=== PATIENT | female | born 1955 | race Caucasian/White ===

== ENCOUNTER 2017-07-29 19:23 | Observation (INO) | payer OTHER, SELFPAY ==
[2017-07-29 20:08] LABS: Absolute Lymphocytes (CBC) 2.9 K/uL (0.7-4.9); Absolute Monocytes 0.5 K/uL (0.1-1.3); Basophils % 0.9 % (0-1.3); Eosinophils % 2.8 % (0-4.4); Hematocrit 43.2 % (36.0-45.0); Lymphocytes % 29.5 % (15.3-44.8); MCH 27.5 pg (27.0-35.0); MCV 82.9 fL (80-100); MPV 8.8 fL (7.6-11.3); Monocytes % 5.5 % (3.3-12.3); RBC Red Blood Cell Count 5.21 M/uL (3.86-4.86)
[2017-07-29 20:16] LABS: Potassium 3.6 mEq/L (3.6-5.0)
[2017-07-29 20:17] LABS: Protime INR 1.01
[2017-07-29] MEDS ORDERED: NITROGLYCERIN 0.4 MG/TAB SL ONE (20:17)
[2017-07-29 20:22] LABS: Albumin 4.2 g/dL (3.2-5.5); Bilirubin Direct 0.1 mg/dL (0-0.2); Bilirubin Total 0.8 mg/dL (0.3-1.2); Magnesium 2.1 mg/dL (1.8-2.5); Protein, Total 7.8 g/dL (6.0-8.3)
[2017-07-29 20:23] LABS: CKMB Creatine Kinase MB 0.8 ng/ml (0.3-4.0)
--- NOTE | 2017-07-29 20:29 | RAD REPORT ---
EXAM DESCRIPTION: CT - Head Brain Wo Cont - 07/29/2017 8:12 pm CLINICAL HISTORY: Progressively worsening headache COMPARISON: September 2016 TECHNIQUE: Axial 5 mm thick images of the head were obtained without IV contrast. All CT scans are performed using dose optimization technique as appropriate and may include automated exposure control or mA/KV adjustment according to patient size. FINDINGS: No intracranial hemorrhage, mass, edema or shift of mid-line structures. No acute infarcti on changes seen. No abnormal extra-axial fluid collections. Ventricles are normal. Physiologic calcif ications are present. Mastoid air cells and visualized portions of the paranasal sinuses are clear. No acute bony findings. Intracranial findings are stable from prior imaging. IMPRESSION: Negative non-contrast CT head examination for acute finding.
--- NOTE | 2017-07-29 20:33 | RAD REPORT ---
EXAM DESCRIPTION: RAD - Chest Single View - 07/29/2017 7:57 pm CLINICAL HISTORY: Chest pain COMPARISON: September 2016 TECHNIQUE: AP portable chest image was obtained 1951 hours . FINDINGS: Lungs are clear. Heart and vasculature are normal. No measurable pleural effusion and no p neumothorax. No gross bony abnormality seen. No acute aortic findings suspected. IMPRESSION: No acute cardiopulmonary process. No significant interval change.
[2017-07-29] MEDS ORDERED: ASPIRIN 81 MG CHEWABLE TABLET ONE (20:40)
[2017-07-29] MEDS ORDERED: MORPHINE 4 MG/ML SYR ONE ×2 (21:08→21:50)
[2017-07-29] MEDS ORDERED: ONDANSETRON 4 MG/2 ML VIAL ONE (21:09)
[2017-07-29] MEDS ORDERED: MORPHINE 4 MG/ML SYR IV PRN (21:11)
[2017-07-29] MEDS ORDERED: ALPRAZOLAM 0.25 MG TABLET PO PRN (21:11)
--- NOTE | 2017-07-29 21:14 | ER ---
Nurse's Notes [facility] Name: Angy Aguilera Age: 62 yrs Sex: Female : 1955 Arrival Date: 07/29/2017 Time: 19:25 Bed 24 Private MD: Diagnosis: Chest pain, unspecified Presentation: 07/29 19:36 Presenting complaint: Patient states: chest pain started 5:45pm tonight while cooking, sr5 progressively getting worse, "dull ache". Reports having LEFT shoulder pain yesterday. PMH= [place] with stents in 2011, HTN, hypercholestrol. AA\\T\\Ox4, equal unlabored resp, skin warm/dry/nc. EKG done in triage. 19:36 Acuity: PATTI 2 sr5 20:41 Transition of care: patient was not received from another setting of care. Onset of tl3 symptoms was July 29, 2017 at 05:00. Care prior to arrival: None. 20:41 Method Of Arrival: Ambulatory tl3 Triage Assessment: 20:00 General: Appears distressed, uncomfortable, well groomed, well developed, well tl3 nourished, Behavior is cooperative, appropriate for age, anxious. Pain: Complains of pain in chest Pain currently is 8 out of 10 on a pain scale. EENT: No signs and/or symptoms were reported regarding the EENT system. Neuro: Level of Consciousness is awake, alert, obeys commands, Oriented to person, place, time, situation, Appropriate for age. Cardiovascular: Heart tones S1 S2 present Capillary refill < 3 seconds in right in left fingers toes. Respiratory: Airway is patent Trachea midline Breath sounds are clear. GI: No signs and/or symptoms were reported involving the gastrointestinal system. : No signs and/or symptoms were reported regarding the genitourinary system. Derm: No signs and/or symptoms reported regarding the dermatologic system. Musculoskeletal: No signs and/or symptoms reported regarding the musculoskeletal system. Historical: - Allergies: 20:43 Sulfa (Sulfonamide Antibiotics); tl3 - Home Meds: 20:43 aspirin 81 mg Oral chew once daily [Active]; Pepcid 20 mg Oral tab once daily [Active]; tl3 - PMHx: 20:43 GERD; Myocardial infarction; Hypertension; Ulcers; tl3 - PSHx: 20:43 Tonsillectomy; Hysterectomy; Cholecystectomy; tl3 - Immunization history:: Adult Immunizations up to date. - Social history:: Smoking status: Patient/guardian denies using tobacco, never smoked. Screenin:00 Abuse screen: Denies threats or abuse. Nutritional screening: No deficits noted. tl3 Tuberculosis screening: No symptoms or risk factors identified. Fall Risk None identified. Assessment: 20:00 General: Appears uncomfortable, well groomed, well developed, well nourished, Behavior tl3 is cooperative, appropriate for age. Pain: Pain does not radiate. Pain began 3 hours ago. Neuro: Level of Consciousness is awake, alert, obeys commands, Oriented to person, place, time, situation, Appropriate for age. Cardiovascular: Heart tones S1 S2 present Capillary refill < 3 seconds in right in left fingers. Respiratory: Airway is patent Trachea midline Respiratory effort is even, Breath sounds are clear bilaterally. GI: No signs and/or symptoms were reported involving the gastrointestinal system. : No signs and/or symptoms were reported regarding the genitourinary system. EENT: No signs and/or symptoms were reported regarding the EENT system. Derm: No signs and/or symptoms reported regarding the dermatologic system. 21:01 Reassessment: No changes from previously documented assessment. Patient and/or family tl3 updated on plan of care and expected duration. Pain level reassessed. Patient is alert, oriented x 3, equal unlabored respirations, skin warm/dry/pink. pts oxygen level dropped to 90% , oxygen per nasal cannula at 2 l/m. 21:15 Reassessment: pt c/o of acute abdominal pain, different from her chest pain, writhing tl3 in bed trying to crawl out of bed, provider notified. 22:52 Reassessment: No changes from previously documented assessment. Patient and/or family tl3 updated on plan of care and expected duration. Pain level reassessed. Patient is alert, oriented x 3, equal unlabored respirations, skin warm/dry/pink. pain is somewhat better. Vital Signs: 19:36 BP 182 / 89; Pulse 93; Resp 20; Temp 98.9(T); Pulse Ox 96% on R/A; Weight 90.72 kg (R); mt Height 5 ft. 9 in. (175.26 cm); 20:00 Pulse 95; Resp 18; Pulse Ox 96% on 2 lpm NC; tl3 20:43 BP 120 / 68; Pulse 90; Resp 16; Pulse Ox 90% on R/A; mt 20:43 BP 131 / 71; Pulse 87; Resp 18; Pulse Ox 97% on 2 lpm NC; mt 21:43 BP 132 / 86; Pulse 76; Resp 18; Pulse Ox 98% on 2 lpm NC; tl3 22:52 BP 143 / 61; Pulse 71; Resp 18; Pulse Ox 98% on 2 lpm NC; tl3 23:18 BP 150 / 63; Pulse 66; Resp 18; Pulse Ox 98% on 2 lpm NC; mt 19:36 Body Mass Index 29.54 (90.72 kg, 175.26 cm) ma ED Course: 19:25 Patient arrived in ED. am2 19:35 Deena Ansari, RN is Primary Nurse. tl3 19:36 Arm band placed on right wrist. Patient placed in an exam room, on a stretcher, on sr5 night monitor, on pulse oximetry. EKG completed in triage. Results shown to MD. 19:37 Triage completed. sr5 19:41 EKG done, by ED staff, reviewed by Margarito Amaro MD. mt 19:42 Jovani Rahman NP is PHCP. pm1 19:42 Margarito Amaro MD is Attending Physician. pm1 19:54 X-ray completed. Portable x-ray completed in exam room. Patient tolerated procedure kc2 well. 19:55 XRAY Chest (1 view) In Process Unspecified. EDMS 20:00 Resting quietly. tl3 20:00 Patient has correct armband on for positive identification. Bed in low position. Call tl3 light in reach. Side rails up X2. Adult w/ patient. night monitor on. Pulse ox on. NIBP on. Warm blanket given. 20:00 No provider procedures requiring assistance completed. Initial lab(s) drawn, by wi, tl3 sent to lab. Inserted saline lock: 22 gauge in left antecubital area, using aseptic technique. Blood collected. Patient maintains SpO2 saturation greater than 95% on room air. 20:12 CT Head Brain wo Cont In Process Unspecified. EDMS 21:13 Kenji Huber MD is Hospitalizing Provider. pm1 Administered Medications: 20:00 Drug: Nitroglycerin 0.4 mg Route: Sublingual; tl3 20:21 Drug: Aspirin Chewable Tablet 324 mg Route: PO; tl3 20:55 Follow up: Response: No adverse reaction tl3 20:22 Drug: Nitroglycerin 0.4 mg Route: Sublingual; tl3 20:40 Drug: Nitroglycerin 0.4 mg Route: Sublingual; tl3 21:44 Follow up: Response: No adverse reaction; Blood pressure is lowered tl3 23:00 Follow up: Response: Blood pressure is lowered tl3 23:00 Follow up: Response: Blood pressure is lowered tl3 20:56 Drug: morphine 4 mg Route: IVP; Site: left antecubital; tl3 21:44 Follow up: Response: No adverse reaction; Pain is unchanged, physician notified tl3 20:56 Drug: Zofran 4 mg Route: IVP; Site: left antecubital; tl3 21:44 Follow up: Response: No adverse reaction tl3 21:20 Drug: Pepcid 20 mg Route: IVP; Infused Over: 3 mins; Site: left antecubital; tl3 21:44 Follow up: Response: No adverse reaction tl3 21:38 Drug: morphine 4 mg Route: IVP; Infused Over: 3 mins; Site: left antecubital; tl3 23:54 Follow up: Response: No adverse reaction; Pain is decreased tl3 23:05 Drug: Lovenox 1 mg/kg Route: Sub-Q; Site: abdomen; tl3 Outcome: 21:13 Decision to Hospitalize by Provider. pm1 23:38 Patient left the ED. tl3 Signatures: Dispatcher [employer] EDMS Jovani Rahman NP INTERVENTIONAL PHYSIATRIST pm1 Ginger Nelson2 Loyd Rueda, RN RN sr5 Yaz Kirk [facility] Deena Ansari RN RN tl3 Corrections: (The following items were deleted from the chart) 19:43 19:36 Pulse 93bpm; Resp 20bpm; Pulse Ox 96% RA; 90.72 kg Reported; Height 5 ft. 9 in.; mt BMI: 29.5; sr5 20:50 20:43 BP 120 / 68; Pulse 90bpm; Resp 16bpm; Pulse Ox 94% RA; mt mt 22:59 21:43 BP 132 / 86; Pulse 76bpm; Resp 18bpm; Pulse Ox 98%; tl3 tl3 22:59 22:52 BP 143 / 61; Pulse 71bpm; Resp 18bpm; Pulse Ox 98%; tl3 tl3
--- NOTE | 2017-07-29 21:14 | EDPHYS ---
Physician Documentation [facility] Name: Angy Aguilera Age: 62 yrs Sex: Female : 1955 Arrival Date: 07/29/2017 Time: 19:25 Bed 24 Private MD: ED Physician Margarito Amaro HPI: 07/29 20:53 This 62 yrs old Female presents to ER via Ambulatory with complaints of Chest pm1 Pain > 30 y/o. 20:53 The patient or guardian reports chest pain that is located primarily in the substernal pm1 area. Onset: today, at 17:45. The pain radiates to back. Associated signs and symptoms: Pertinent positives: headache, nausea, Pertinent negatives: abdominal pain, cough, diaphoresis, palpitations, shortness of breath. The chest pain is described as a pressure. Duration: The patient or guardian reports a single episode, that is still ongoing. Modifying factors: The symptoms are alleviated by nothing. the symptoms are aggravated by nothing. Severity of pain: in the emergency department the pain is a 7 / 10. The patient has experienced similar episodes in the past, a few times. The patient has not recently seen a physician. 21:00 2011 single stent placement by Dr. Loera. pm1 Historical: - Allergies: 20:43 Sulfa (Sulfonamide Antibiotics); tl3 - Home Meds: 20:43 aspirin 81 mg Oral chew once daily [Active]; Pepcid 20 mg Oral tab once daily [Active]; tl3 - PMHx: 20:43 GERD; Myocardial infarction; Hypertension; Ulcers; tl3 - PSHx: 20:43 Tonsillectomy; Hysterectomy; Cholecystectomy; tl3 - Immunization history:: Adult Immunizations up to date. - Social history:: Smoking status: Patient/guardian denies using tobacco, never smoked. ROS: 21:00 Constitutional: Negative for fever, chills, and weight loss, Eyes: Negative for injury, pm1 pain, redness, and discharge, ENT: Negative for injury, pain, and discharge, Neck: Negative for injury, pain, and swelling. 21:00 Respiratory: Negative for shortness of breath, cough, wheezing, and pleuritic chest pain. 21:00 Back: Negative for injury and pain, : Negative for injury, bleeding, discharge, and swelling, MS/Extremity: Negative for injury and deformity, Skin: Negative for injury, rash, and discoloration. 21:00 Cardiovascular: Positive for chest pain, Negative for edema, palpitations. 21:00 Abdomen/GI: Positive for nausea, Negative for abdominal pain, vomiting, diarrhea. 21:00 Neuro: Positive for headache, Negative for loss of consciousness, numbness, seizure activity, tingling, weakness. Exam: 21:00 Constitutional: This is a well developed, well nourished patient who is awake, alert, pm1 and in no acute distress. Head/Face: Normocephalic, atraumatic. Eyes: Pupils equal round and reactive to light, extra-ocular motions intact. Lids and lashes normal. Conjunctiva and sclera are non-icteric and not injected. Cornea within normal limits. Periorbital areas with no swelling, redness, or edema. 21:00 ENT: Nares patent. No nasal discharge, no septal abnormalities noted. Tympanic membranes are normal and external auditory canals are clear. Oropharynx with no redness, swelling, or masses, exudates, or evidence of obstruction, uvula midline. Mucous membranes moist. Neck: Trachea midline, no thyromegaly or masses palpated, and no cervical lymphadenopathy. Supple, full range of motion without nuchal rigidity, or vertebral point tenderness. No Meningismus. Chest/axilla: Normal chest wall appearance and motion. Nontender with no deformity. No lesions are appreciated. Cardiovascular: Regular rate and rhythm with a normal S1 and S2. No gallops, murmurs, or rubs. Normal PMI, no JVD. No pulse deficits. Respiratory: Lungs have equal breath sounds bilaterally, clear to auscultation and percussion. No rales, rhonchi or wheezes noted. No increased work of breathing, no retractions or nasal flaring. Abdomen/GI: Soft, non-tender, with normal bowel sounds. No distension or tympany. No guarding or rebound. No evidence of tenderness throughout. Back: No spinal tenderness. No costovertebral tenderness. Full range of motion. Skin: Warm, dry with normal turgor. Normal color with no rashes, no lesions, and no evidence of cellulitis. MS/ Extremity: Pulses equal, no cyanosis. Neurovascular intact. Full, normal range of motion. 21:00 Neuro: Orientation: is normal, Mentation: is normal, Cranial nerves: CN II- XII are normal as tested, Motor: is normal, moves all fours, Sensation: is normal, no obvious gross deficits. Vital Signs: 19:36 BP 182 / 89; Pulse 93; Resp 20; Temp 98.9(T); Pulse Ox 96% on R/A; Weight 90.72 kg (R); mt Height 5 ft. 9 in. (175.26 cm); 20:00 Pulse 95; Resp 18; Pulse Ox 96% on 2 lpm NC; tl3 20:43 BP 120 / 68; Pulse 90; Resp 16; Pulse Ox 90% on R/A; mt 20:43 BP 131 / 71; Pulse 87; Resp 18; Pulse Ox 97% on 2 lpm NC; mt 21:43 BP 132 / 86; Pulse 76; Resp 18; Pulse Ox 98% on 2 lpm NC; tl3 22:52 BP 143 / 61; Pulse 71; Resp 18; Pulse Ox 98% on 2 lpm NC; tl3 23:18 BP 150 / 63; Pulse 66; Resp 18; Pulse Ox 98% on 2 lpm NC; mt 19:36 Body Mass Index 29.54 (90.72 kg, 175.26 cm) mt MDM: 19:51 Patient medically screened. pm1 20:55 Data reviewed: vital signs. Data interpreted: Pulse oximetry: on room air is 97 %. pm1 Interpretation: normal. Counseling: I had a detailed discussion with the patient and/or guardian regarding: the historical points, exam findings, and any diagnostic results supporting the discharge/admit diagnosis, lab results, radiology results, the need for further work-up and treatment in the hospital. 21:10 Physician consultation: Kenji Huber MD was contacted at 21:11, regarding admission, pm1 patient's condition, in the emergency department to see patient at 21:11. 07/29 19:43 Order name: Basic Metabolic Panel; Complete Time: 20:24 pm07/29 19:43 Order name: BNP; Complete Time: 20:24 pm07/29 19:43 Order name: CBC with Diff; Complete Time: 20:21 pm07/29 19:43 Order name: Ckmb; Complete Time: 20:24 pm07/29 19:43 Order name: CPK; Complete Time: 20:24 pm07/29 19:43 Order name: LFT's; Complete Time: 20:24 pm07/29 19:43 Order name: Magnesium; Complete Time: 20:24 pm07/29 19:43 Order name: PT-INR; Complete Time: 20:24 pm07/29 19:43 Order name: Ptt, Activated; Complete Time: 20:24 pm07/29 19:43 Order name: Troponin (emerg Dept Use Only); Complete Time: 20:21 pm07/29 21:15 Order name: Basic Metabolic Panel [facility] 07/29 21:15 Order name: Basic Metabolic Panel [facility] 07/29 21:15 Order name: CBC with Automated Diff [facility] 07/29 21:15 Order name: CBC with Automated Diff [facility] 07/29 19:43 Order name: XRAY Chest (1 view); Complete Time: 20:38 pm07/29 19:43 Order name: EKG; Complete Time: 19:44 pm07/29 19:52 Order name: CT Head Brain wo Cont; Complete Time: 20:38 pm07/29 21:15 Order name: CONS Physician Consult [facility] 07/29 21:15 Order name: Echo with Doppler [facility] 07/29 21:15 Order name: Lipid Profile [facility] 07/29 21:15 Order name: Lipid Profile [facility] 07/29 21:15 Order name: Troponin I [facility] 07/29 21:15 Order name: Troponin I; Complete Time: 03:52 [facility] 07/29 19:43 Order name: Cardiac monitoring; Complete Time: 19:47 pm07/29 19:43 Order name: EKG - Nurse/Tech; Complete Time: 19:46 pm07/29 19:43 Order name: IV Saline Lock; Complete Time: 19:56 pm07/29 19:43 Order name: Labs collected and sent; Complete Time: 19:56 pm07/29 19:43 Order name: O2 Per Protocol; Complete Time: 19:47 pm07/29 19:43 Order name: O2 Sat Monitoring; Complete Time: 19:47 pm07/29 19:43 Order name: Urine Dipstick-Ancillary (obtain specimen); Complete Time: 23:54 pm07/29 21:15 Order name: Heart Healthy [facility] 07/29 21:15 Order name: EKG Electrocardiogram EDMS 07/29 21:15 Order name: EKG Electrocardiogram EDMS Administered Medications: 20:00 Drug: Nitroglycerin 0.4 mg Route: Sublingual; tl3 20:21 Drug: Aspirin Chewable Tablet 324 mg Route: PO; tl3 20:55 Follow up: Response: No adverse reaction tl3 20:22 Drug: Nitroglycerin 0.4 mg Route: Sublingual; tl3 20:40 Drug: Nitroglycerin 0.4 mg Route: Sublingual; tl3 21:44 Follow up: Response: No adverse reaction; Blood pressure is lowered tl3 23:00 Follow up: Response: Blood pressure is lowered tl3 23:00 Follow up: Response: Blood pressure is lowered tl3 20:56 Drug: morphine 4 mg Route: IVP; Site: left antecubital; tl3 21:44 Follow up: Response: No adverse reaction; Pain is unchanged, physician notified tl3 20:56 Drug: Zofran 4 mg Route: IVP; Site: left antecubital; tl3 21:44 Follow up: Response: No adverse reaction tl3 21:20 Drug: Pepcid 20 mg Route: IVP; Infused Over: 3 mins; Site: left antecubital; tl3 21:44 Follow up: Response: No adverse reaction tl3 21:38 Drug: morphine 4 mg Route: IVP; Infused Over: 3 mins; Site: left antecubital; tl3 23:54 Follow up: Response: No adverse reaction; Pain is decreased tl3 23:05 Drug: Lovenox 1 mg/kg Route: Sub-Q; Site: abdomen; tl3 Disposition: 23:56 Co-signature as Attending Physician, Margarito Amaro MD I agree with the assessment and kdr plan of care. Disposition: 07/29/17 21:13 Hospitalization ordered by Kenji Huber for Observation. Preliminary diagnosis is Chest pain, unspecified. - Bed requested for Telemetry/MedSurg (observation). - Status is Observation. tl3 - Condition is Stable. - Problem is new. - Symptoms have improved. UTI on Admission? No Signatures: Dispatcher [employer] EDMS Chiquita Arias rg2 Margarito Amaro MD MD kdr Marinas, Patrick, MEKA STABILIZING MACHINE OPERATOR pm1 Goss, Deena, RN RN tl3
[2017-07-29] MEDS ORDERED: SODIUM CHLORIDE 0.9% 10ML INJ IV PRN (21:15)
[2017-07-29] MEDS ORDERED: FAMOTIDINE 20 MG/2 ML VIAL IV ONE (21:40)
[2017-07-29] MEDS ORDERED: ONDANSETRON 4 MG/2 ML VIAL IV PRN (23:47)
[2017-07-30 01:28] VITALS: BMI 29.5
[2017-07-30 04:53] LABS: Absolute Lymphocytes (CBC) 2.1 K/uL (0.7-4.9); Absolute Monocytes 0.4 K/uL (0.1-1.3); Absolute Neutrophil 6.9 K/uL (1.8-8.0); Basophils % 0.8 % (0-1.3); Eosinophils % 0.4 % (0-4.4); Hematocrit 40.4 % (36.0-45.0); Lymphocytes % 22.4 % (15.3-44.8); MCH 27.6 pg (27.0-35.0); MPV 8.8 fL (7.6-11.3); Monocytes % 4.3 % (3.3-12.3); RBC Red Blood Cell Count 4.86 M/uL (3.86-4.86)
[2017-07-30 05:12] LABS: Potassium 4.4 mEq/L (3.6-5.0)
[2017-07-30] MEDS: ACETAMINOPHEN 500 MG TAB PO PRN ×2 (06:48→16:09)
[2017-07-30] MEDS ORDERED: INFLUENZA VACCINE (for 3y+) 0.5 ML DOSE IMVAC ONE (08:00)
[2017-07-30] MEDS: ASPIRIN EC 81 MG TAB PO SCH (08:33)
[2017-07-30] MEDS: CLOPIDOGREL 75 MG TABLET PO SCH (08:34)
[2017-07-30] MEDS ORDERED: METOPROLOL TAR 50 MG TAB PO SCH (09:00)
[2017-07-30] MEDS ORDERED: ENOXAPARIN 100 MG/ML SYR SQ SCH (09:00)
[2017-07-30] MEDS ORDERED: PANTOPRAZOLE 40 MG INJ IVP SCH (09:00)
--- NOTE | 2017-07-30 09:03 | P.HP ---
Certification for Inpatient Patient admitted to: Observation With expected LOS: <2 Midnights Patient will require the following post-hospital care: None Practitioner: I am a practitioner with admitting privileges, knowledge of patient current condition, hospital course, and medical plan of care. Services: Services provided to patient in accordance with Admission requirements found in Title 42 Section 412.3 of the Code of Federal Regulations Patient History Date of Service: 07/29/17 Reason for admission: Chest pain rule out acute coronary syndrome History of Present Illness: Patient is a 62-year-old female who started having sternal pain. It radiated to her back. Pain was worsening so she came into the hospital for further evaluation. Pain started at 5:45 p.m.. It started while she was cooking. She has been doing any strenuous activities. His history of coronary artery stent but has not follow with a physician because she is not able to afford it. She does not have health insurance. She came into the hospital at this time because of the worsening pain. She does have a history of reflux but this is not typical over reflux pain. She came into the hospital for further evaluation. In the ER her EKG and troponins were negative. She will be evaluated further. Allergies Sulfa (Sulfonamide Antibiotics) [Sulfa(Sulfonamide Antibiotics)] Allergy ( Intermediate, Verified 07/30/17 00:34) itching and rash Home Medications: Aspirin Chewable [Aspirin Chewable*] 81 mg PO DAILY 09/02/16 Famotidine [Pepcid] 40 mg PO DAILY 07/30/17 - Past Medical/Surgical History Has patient received pneumonia vaccine in the past: No Diabetic: No -: HTN -: [place] in 2011 with stent -: GERD -: Scarlet fever -: Cardiac stentX1 -: Tonsillectomy -: Hysterectomy -: Monica -: Foot surgeryx2 - Family History Mother Medical History: Heart disease, Cancer Notes: from brain Cancer Father Medical History: Heart disease Notes: 6 heart bypass surgery - Social History Smoking Status: Former smoker Alcohol use: Yes CD- Drugs: No Caffeine use: Yes Place of Residence: Home Review of Systems 10-point ROS is otherwise unremarkable Physical Examination - Vital Signs Temperature: 97.8 F Blood Pressure: 122/58 Pulse: 69 Respirations: 16 Pulse Ox (%): 90 - Physical Exam General: Alert, In no apparent distress, Oriented x3 HEENT: Atraumatic, PERRLA, Mucous membr. moist/pink, EOMI, Sclerae nonicteric Neck: Supple, 2+ carotid pulse no bruit, No LAD, Without JVD or thyroid abnormality Respiratory: Clear to auscultation bilaterally, Normal air movement Cardiovascular: Regular rate/rhythm, Normal S1 S2, No murmurs Gastrointestinal: Normal bowel sounds, Soft and benign, Non-distended, No tenderness Musculoskeletal: No clubbing, No swelling, No tenderness Integumentary: No rashes Neurological: Normal gait, Normal speech, Normal strength at 5/5 x4 extr, Normal tone, Sensation intact, Cranial nerves 3-12 intact, Normal affect Lymphatics: No axilla or inguinal lymphadenopathy - Studies Laboratory Data (last 24 hrs) 07/29/17 19:45: PT 11.9, INR 1.01, APTT 29.3 07/29/17 19:45: WBC 9.9, Hgb 14.3, Hct 43.2, Plt Count 275 07/29/17 19:45: B-Natriuretic Peptide 14 07/29/17 19:45: Sodium 139, Potassium 3.6, BUN 10, Creatinine 0.71, Glucose 113 , Magnesium 2.1, Total Bilirubin 0.8, AST 24, ALT 26, Alkaline Phosphatase 101 Assessment & Plan - Problems (Diagnosis) (1) Chest pain Onset Date: 09/03/16 Current Visit: No Status: Acute Qualifiers: (2) Coronary artery disease Onset Date: 09/03/16 Current Visit: No Status: Chronic Qualifiers: - Plan 1. Serial troponins and EKG 2. Cardiology consultation 3. Echocardiogram 4. Anti-platelet therapy, anti coagulation, beta-kye, statin, and O2 as needed 5. IV morphine for pain 6. Nitro p.r.n. Discharge Plan: Home Plan to discharge in: 24 Hours - Advance Directives Does patient have a Living Will: No Does patient have a Durable POA for Healthcare: No - Code Status/Comfort Care Code Status Assessed: Yes Code Status: Full Code Critical Care: No Time Spent Managing PTS Care (In Minutes): 50
--- NOTE | 2017-07-30 09:54 | ECHO ---
HEIGHT: 5 ft 9 in WEIGHT: 200 lb 0 oz DATE OF STUDY: 07/30/[address]: Kenji Huber MD 2-DIMENSIONAL: YES M.MODE: YES DOPPLER: YES COLOR FLOW: YES TDS: NO PORTABLE: NO DEFINITY: NO BUBBLE STUDY: NO DIAGNOSIS: CORONARY ARTERY DISEASE, ANGINA CARDIAC HISTORY: CATHERIZATION: YES SURGERY: NO PROSTHETIC VALVE: NO PACEMAKER: NO MEASUREMENTS (cm) DIASTOLIC (NORMALS) SYSTOLIC (NORMALS) IVSd 1.3 (0.6-1.2) LA Diam 3.8 (1.9-4.0) LVEF 78% LVIDd 3.5 (3.5-5.7) LVIDs 1.9 (2.0-3.5) %FS 45% LVPWd 1.4 (0.6-1.2) Ao Diam 2.8 (2.0-3.7) 2 DIMENSIONAL ASSESSMENT: RIGHT ATRIUM: NORMAL LEFT ATRIUM: NORMAL RIGHT VENTRICLE: NORMAL LEFT VENTRICLE: NORMAL TRICUSPID VALVE: NORMAL MITRAL VALVE: NORMAL PULMONIC VALVE: NORMAL AORTIC VALVE: NORMAL PERICARDIAL EFFUSION: NONE AORTIC ROOT: NORMAL LEFT VENTRICULAR WALL MOTION: NORMAL DOPPLER/COLOR FLOW: MILD TRICUSPID REGURGITATION. NORMAL RIGHT VENTRICULAR SYSTOLIC PRESSURE. COMMENTS: NORMAL 2D ECHOCARDIOGRAM. MILD TRICUSPID REGURGITATION. TECHNOLOGIST: Sri VERA
--- NOTE | 2017-07-30 10:21 | EKG ---
Test Date: 2017-07-30 Test Time: 08:49:47 Harness Cutter: JAKUB MEASUREMENT RESULTS: Intervals: Rate: 79 MD: 166 QRSD: 70 QT: 420 QTc: 481 [place]: P: 44 MD: 166 QRS: 13 T: 52 INTERPRETIVE STATEMENTS: Normal sinus rhythm Prolonged QT Abnormal ECG Compared to ECG 07/29/2017 19:36:43 Prolonged QT interval now present Electronically Signed On 07-30-17 10:21:10 CDT by Jayesh Loera
--- NOTE | 2017-07-30 10:23 | EKG ---
Test Date: 2017-07-29 Test Time: 19:36:43 Digital Imaging Specialist: SHERI MEASUREMENT RESULTS: Intervals: Rate: 85 FL: 178 QRSD: 76 QT: 366 QTc: 435 [place]: P: 62 FL: 178 QRS: 48 T: 55 INTERPRETIVE STATEMENTS: Normal sinus rhythm Normal ECG Compared to ECG 09/02/2016 12:40:05 No significant changes Electronically Signed On 07-30-17 10:23:06 CDT by Jayesh Loera
[2017-07-30] MEDS ORDERED: LIDOCAINE 1% 20 ML MDV ONE (13:41)
[2017-07-30] MEDS ORDERED: NITROGLYCERIN 100 MCG/ML SYR (for cath lab use only) IV ONE (13:41)
[2017-07-30] MEDS ORDERED: HEPA 1000U/500MLS 2,000 UNIT/1,000 ML BAG IV ONE (13:41)
[2017-07-30] MEDS ORDERED: NICARDIPINE HCL 25 MG/10 ML IV ONE (13:41)
[2017-07-30] MEDS ORDERED: HEPARIN 5000 UNIT/ML 1 ML VIAL ONE (13:41)
[2017-07-30] MEDS ORDERED: NITROGLYCERIN/D5W 25 MG/250 ML BTL IV ONE (13:42)
[2017-07-30] MEDS ORDERED: NA CHLORIDE 0.9% 1,000 ML ONE (13:54)
[2017-07-30] MEDS ORDERED: MIDAZOLAM HCL 2 MG/2 ML INJ ONE ×2 (14:21→14:36)
[2017-07-30] MEDS ORDERED: FENTANYL CITR 100 MCG/2 ML ONE (14:22)
[2017-07-30] MEDS ORDERED: NA CHLORIDE 0.9% 0 ML ONE ×3 (14:44→14:51)
[2017-07-30] MEDS ORDERED: ATROPINE SULF 1 MG/10 ML SYR IV ONE (14:44)
[2017-07-30] MEDS ORDERED: NA CHLORIDE 0.9% 0 ML IV ONE (14:45)
--- NOTE | 2017-07-30 15:19 | CON ---
Chief Complaint: Chest pain. History Of Present Illness: Mrs. Aguilera is 62, she has a history of a right coronary stent in 2011 . Since then, she has done well but she does not take a statin medication. She started having chest pain and came to the hospital. EKGs and enzymes are okay. She has a history of gallbladder surgery , history of appendix surgery and a history of intracoronary stent. Outpatient medications are aspir in and Pepcid. She does not take any of the usual medicines given to cardiac patients after a stent. She has had a CAT scan of her head that is normal. She has had an echocardiogram that is normal. Physical Examination: Vital Signs: 5 feet 9 and 200 pounds. HEENT: Normal. Lungs: Clear. Cardiac: Within normal limits. Abdomen: Soft. Extremities: Normal. Imaging: EKG within normal limits. Plan: I have recommended a cardiac cath for diagnostic purposes by 2 p.m. today. She will be on jonathan g enough off blood thinner and long enough without food that we can safely do a cardiac cath, possibl e stent if needed. AMBER/SAVANNA Voice ID: [id number] Report ID: [id number]
--- NOTE | 2017-07-30 16:07 | P.PN ---
Subjective Date of Service: 07/30/17 Chief Complaint: Chest pain rule out acute coronary syndrome The patient stated that she is doing better however still have persistent epigastric abdominal pain wore reading to the right side Physical Examination - Vital Signs Temperature: 98.1 F Blood Pressure: 96/53 Pulse: 59 Respirations: 16 Pulse Ox (%): 91 - Physical Exam General: Alert, In no apparent distress HEENT: Atraumatic, PERRLA, EOMI Neck: Supple, JVD not distended Respiratory: Clear to auscultation bilaterally, Normal air movement Cardiovascular: Regular rate/rhythm, Normal S1 S2 Gastrointestinal: Normal bowel sounds, No tenderness Musculoskeletal: No tenderness Integumentary: No rashes Neurological: Normal speech, Normal tone, Normal affect Lymphatics: No axilla or inguinal lymphadenopathy - Studies Laboratory Data (last 24 hrs) 07/29/17 19:45: PT 11.9, INR 1.01, APTT 29.3 07/29/17 19:45: WBC 9.9, Hgb 14.3, Hct 43.2, Plt Count 275 07/29/17 19:45: B-Natriuretic Peptide 14 07/29/17 19:45: Sodium 139, Potassium 3.6, BUN 10, Creatinine 0.71, Glucose 113 , Magnesium 2.1, Total Bilirubin 0.8, AST 24, ALT 26, Alkaline Phosphatase 101 Medications List Reviewed: Yes Assessment And Plan - Current Problems (Diagnosis) (1) Chest pain Onset Date: 07/30/17 Current Visit: Yes Status: Acute Qualifiers: Chest pain type: unspecified Qualified Code(s): R07.9 - Chest pain, unspecified (2) Coronary artery disease Onset Date: 09/03/16 Current Visit: Yes Status: Chronic Qualifiers: (3) GERD (gastroesophageal reflux disease) Onset Date: 09/03/16 Current Visit: Yes Status: Chronic Qualifiers: Esophagitis presence: with esophagitis Qualified Code(s): K21.0 - Gastro- esophageal reflux disease with esophagitis - Plan --troponin x2 was negative so far --cardiac catheterization today per Dr. Loera cardiology --continual Protonix intravenously for possible gastritis
[2017-07-30] MEDS ORDERED: ACETAMINOPHEN 500 MG TAB ONE (16:25)
[2017-07-30] MEDS ORDERED: AMLODIPINE 5 MG TAB PO SCH (18:00)
--- NOTE | 2017-07-30 19:25 | OP ---
Surgeon: Jayesh Loera MD Procedures: Left heart catheterization, coronary left ventricular angiography. Findings: The patient has a stent in her right coronary, placed in 2011. It is patent. There is a 40% in-stent stenosis. There are plaques in the mid LAD and in the left main. There are much less t esquivel 20% stenosis. Overall, her coronary circulation looks very good. Left ventricular end-diastolic pressure was 16. Systolic pressure normal. No aortic valve gradient. An ejection fraction is 65%. Procedure In Detail: The patient had what sounds like unstable angina. 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 Prepared and draped in usual steri le fashion. Right radial approach used. Tissues over the right radial artery were anesthetized with 1% lidocaine. The artery was entered using a 21-gauge needle. We used a 0.021 inch guidewire to ca nnulate the right radial artery that was used to perform the modified Seldinger technique and place a 6-Greek Terumo radial artery sheath in place. The sheath was flushed and the radial cocktail was g iven consisting of nicardipine, heparin, and nitroglycerin. We guided the diagnostic catheter into t he ascending aorta using fluoroscopic guidance and a [employer] short radius J-tip Glidewire. We were ab le to angiogram right coronary, left coronary, left ventricle all with the TIG catheter. At the end of the procedure, the catheter was removed over a J-wire. The sheath was flushed, removed, and the a rteriotomy was closed using a TR band. No complications from the procedure. Estimated Blood Loss: 5 cc. Acrobatic Dancer: Demarcus Lei. AMBER/SAVANNA Voice ID: [id number] Report ID: [id number]
[2017-07-30] MEDS ORDERED: ATORVASTATIN 20 MG TAB PO SCH (21:00)
[2017-07-30 21:50] LABS: Urine Appearance CLEAR; Urine Bilirubin NEGATIVE (NEG); Urine Blood NEGATIVE (NEG); Urine Color YELLOW; Urine Glucose NEGATIVE (NEG); Urine Protein NEGATIVE (NEG); Urine Specific Gravity >=1.030 (1.005-1.030)
[2017-07-30 21:52] LABS: Urine Microscopic Reflex NO UMIC
[2017-07-31] MEDS ORDERED: PANTOPRAZOLE 40MG TABLET PO SCH (06:30)
[2017-07-31] MEDS: CLOPIDOGREL 75 MG TABLET PO SCH (10:09)
[2017-07-31] MEDS: ASPIRIN EC 81 MG TAB PO SCH (10:10)
--- NOTE | 2017-07-31 12:07 | PN ---
Subjective: The patient was admitted for chest pain. Dr. Loera performed a heart catheterization o n her yesterday, showed a patent RCA stent since 2011 with 40% in-stent restenosis. She had mild to moderate disease in the circumflex and LAD with no focal stenosis. The procedure was done using the right wrist approach. Today, her right wrist is intact. There is no hematoma. The patient feels go od. Normal rhythm. No chest pain. She can go home whenever it is okay with Dr. Hui. We would l alicia to see her in the office in the next 2 weeks. She should at least be on aspirin and a statin. S he needs to find a primary care physician for followup. She has had some insurance changes and has h ad a difficult time finding physician. We will see if we can help her with that. JOSETTE/SAVANNA Voice ID: [id number] Report ID: [id number]
[2017-07-31 13:17] VITALS: BP 132/65; TEMP 97.9
[2017-07-31 14:34] VITALS: O2SAT 95
--- NOTE | 2017-07-31 17:52 | P.DS ---
Admission Date: 07/29/17 Discharge Date: 07/31/17 Disposition: ROUTINE DISCHARGE Discharge Condition: GOOD Reason for Admission: Chest pain rule out acute coronary syndrome - Problems (1) Chest pain Onset Date: 07/30/17 Status: Acute Qualifiers: Chest pain type: unspecified Qualified Code(s): R07.9 - Chest pain, unspecified (2) Coronary artery disease Onset Date: 09/03/16 Status: Chronic Qualifiers: (3) GERD (gastroesophageal reflux disease) Onset Date: 09/03/16 Status: Chronic Qualifiers: Esophagitis presence: with esophagitis Qualified Code(s): K21.0 - Gastro- esophageal reflux disease with esophagitis Brief History of Present Illness: Patient is a 62-year-old female who started having sternal pain. It radiated to her back. Pain was worsening so she came into the hospital for further evaluation. Pain started at 5:45 p.m.. It started while she was cooking. She has been doing any strenuous activities. His history of coronary artery stent but has not follow with a physician because she is not able to afford it. She does not have health insurance. She came into the hospital at this time because of the worsening pain. She does have a history of reflux but this is not typical over reflux pain. She came into the hospital for further evaluation. In the ER her EKG and troponins were negative. She will be evaluated further. Hospital Course: The patient with admitted hospital for chest pain and epigastric abdominal pain. The patient underwent cardiac catheterization which demonstrated no evidence of significant coronary artery disease. The patient have prior history of gastric ulcer and she was giving increased dose of Protonix with clinical improvement. The patient is discharged home in stable condition on Protonix 20 mg p.o. b.i.d. Vital Signs/Physical Exam: Temp Pulse Resp BP Pulse Ox 97.9 F 78 20 132/65 97 07/31/17 12:00 07/31/17 12:00 07/31/17 12:00 07/31/17 12:07/31/17 12:00 General: Alert, In no apparent distress HEENT: Atraumatic, PERRLA, EOMI Neck: Supple, JVD not distended Respiratory: Clear to auscultation bilaterally, Normal air movement Cardiovascular: Regular rate/rhythm, Normal S1 S2 Gastrointestinal: Normal bowel sounds, No tenderness Musculoskeletal: No tenderness Integumentary: No rashes Neurological: Normal speech, Normal tone, Normal affect Lymphatics: No axilla or inguinal lymphadenopathy Laboratory Data at Discharge: WBC 9.5 K/uL (4.3-10.9) 07/30/17 04:10 Hgb 13.4 g/dL (12.0-15.0) 07/30/17 04:10 Hct 40.4 % (36.0-45.0) 07/30/17 04:10 Plt Count 265 K/uL (152-406) 07/30/17 04:10 PT 11.9 SECONDS (9.5-12.5) 07/29/17 19:45 INR 1.01 07/29/17 19:45 APTT 29.3 SECONDS (24.3-36.9) 07/29/17 19:45 Sodium 140 mEq/L (135-145) 07/30/17 04:10 Potassium 4.4 mEq/L (3.6-5.0) 07/30/17 04:10 BUN 13 mg/dL (6-20) 07/30/17 04:10 Creatinine 0.77 mg/dL (0.44-1.00) 07/30/17 04:10 Glucose 132 mg/dL (65-120) H 07/30/17 04:10 Magnesium 2.1 mg/dL (1.8-2.5) 07/29/17 19:45 Total Bilirubin 0.8 mg/dL (0.3-1.2) 07/29/17 19:45 AST 24 IU/L (10-42) 07/29/17 19:45 ALT 26 IU/L (10-60) 07/29/17 19:45 Alkaline Phosphatase 101 IU/L (42-121) 07/29/17 19:45 Troponin I < 0.03 ng/mL (<0.03) 07/29/17 23:59 B-Natriuretic Peptide 14 pg/ml (<=100) 07/29/17 19:45 Triglycerides Cancelled 07/30/17 06:00 Cholesterol Cancelled 07/30/17 06:00 HDL Cholesterol Cancelled 07/30/17 06:00 Cholesterol/HDL Ratio Cancelled 07/30/17 06:00 Home Medications: Aspirin Chewable [Aspirin Chewable*] 81 mg PO DAILY 09/02/16 Clopidogrel Bisulfate [Plavix*] 75 mg PO DAILY #30 tablet 07/31/17 Pantoprazole [Protonix Tab*] 40 mg PO BID #60 tab 07/31/17 New Medications: Clopidogrel Bisulfate [Plavix*] 75 mg PO DAILY #30 tablet Pantoprazole [Protonix Tab*] 40 mg PO BID #60 tab Activity: Ad red Followup: Jayesh Loera MD [ACTIVE - CAN ADMIT] - Time spent managing pt's care (in minutes): 15
== END 2017-07-31 15:20 | disposition home or self-care (01) ==
LOC: ER 19:23 → ERHOLD 21:39 → 4TH 22:01
PROVIDERS: ADMIT Hospitalist; ATTEND Hospitalist
PROC: 4A023N7 Measurement of Cardiac Sampling and Pressure, Left Heart, Percutaneous Approach (ICD-10-PCS; principal; 2017-07-30)
PROC: B201YZZ Plain Radiography of Multiple Coronary Arteries using Other Contrast (ICD-10-PCS; 2017-07-30)
PROC: B205YZZ Plain Radiography of Left Heart using Other Contrast (ICD-10-PCS; 2017-07-30)
DX: R07.9 Chest pain, unspecified (principal); I25.10 Atherosclerotic heart disease of native coronary artery without angina pectoris; Z95.5 Presence of coronary angioplasty implant and graft; K21.0 Gastro-esophageal reflux disease with esophagitis; Z88.2 Allergy status to sulfonamides; Z87.891 Personal history of nicotine dependence
CPT/HCPCS: 36415; 70450; 71045; 80048; 80061; 80076; 81003; 82550; 82553; 83735; 83880; 84484; 85025; 85610; 85730; 93005; 93306; 93458; 96372; 96374; 96375; 99285; C1893; C9113; G0378; J0583; J1644; J1650; J2250; J2405; J3010; J7030

== ENCOUNTER 2017-11-02 12:10 | Emergency (ER) | payer OTHER ==
[2017-11-02] MEDS ORDERED: DIAZEPAM 10 MG/2 ML INJ SYRINGE ONE (13:11)
[2017-11-02 13:16] LABS: Absolute Lymphocytes (CBC) 2.5 K/uL (0.7-4.9); Absolute Monocytes 0.4 K/uL (0.1-1.3); Absolute Neutrophil 4.6 K/uL (1.8-8.0); Basophils % 1.1 % (0-1.3); Eosinophils % 2.3 % (0-4.4); Hematocrit 46.7 % (36.0-45.0); Lymphocytes % 32.1 % (15.3-44.8); MCH 26.7 pg (27.0-35.0); MCV 84.2 fL (80-100); MPV 8.7 fL (7.6-11.3); Monocytes % 5.1 % (3.3-12.3); RBC Red Blood Cell Count 5.54 M/uL (3.86-4.86)
[2017-11-02] MEDS ORDERED: KETOROLAC 30 MG/ML INJ ONE (14:20)
[2017-11-02] MEDS ORDERED: DIPHENHYDRAMINE 50 MG/ML VIAL ONE (14:20)
--- NOTE | 2017-11-02 15:20 | EDPHYS ---
Physician Documentation [facility] Name: Angy Aguilera Age: 62 yrs Sex: Female : 1955 Arrival Date: 11/02/2017 Time: 12:12 Bed 18 Private MD: Out, [facility] ED Physician David Joshua HPI: 11/02 15:34 This 62 yrs old Female presents to ER via Wheelchair with complaints of gs Dizziness, Neck Pain, >24Hrs Old, Nausea. 15:34 The patient presents with dizziness, sense of spinning, vertigo. Onset: The gs symptoms/episode began/occurred acutely, this morning. Modifying factors: the symptoms are aggravated by movement of head, standing up, changing position. Associated signs and symptoms: Pertinent positives: nausea, Pertinent negatives: confusion, vomiting. Severity of symptoms: At their worst the symptoms were severe in the emergency department the symptoms are unchanged. The patient has not experienced similar symptoms in the past. Historical: - Allergies: 12:22 Sulfa (Sulfonamide Antibiotics); lk1 - PMHx: 12:22 GERD; Hypertension; Myocardial infarction; Ulcers; lk1 15:35 chronic neck pain; gs - PSHx: 12:22 Tonsillectomy; Hysterectomy; Cholecystectomy; lk1 - Immunization history:: Adult Immunizations up to date. - Social history:: Smoking status: Patient/guardian denies using tobacco. - Ebola Screening: : No symptoms or risks identified at this time. ROS: 15:38 All other systems are negative. gs Exam: 15:38 Head/Face: Normocephalic, atraumatic. Eyes: Pupils equal round and reactive to light, gs extra-ocular motions intact. Lids and lashes normal. Conjunctiva and sclera are non-icteric and not injected. Cornea within normal limits. Periorbital areas with no swelling, redness, or edema. ENT: Nares patent. No nasal discharge, no septal abnormalities noted. Tympanic membranes are normal and external auditory canals are clear. Oropharynx with no redness, swelling, or masses, exudates, or evidence of obstruction, uvula midline. Mucous membranes moist. Neck: Trachea midline, no thyromegaly or masses palpated, and no cervical lymphadenopathy. Supple, full range of motion without nuchal rigidity, or vertebral point tenderness. No Meningismus. Chest/axilla: Normal chest wall appearance and motion. Nontender with no deformity. No lesions are appreciated. Cardiovascular: Regular rate and rhythm with a normal S1 and S2. No gallops, murmurs, or rubs. Normal PMI, no JVD. No pulse deficits. Respiratory: Lungs have equal breath sounds bilaterally, clear to auscultation and percussion. No rales, rhonchi or wheezes noted. No increased work of breathing, no retractions or nasal flaring. Abdomen/GI: Soft, non-tender, with normal bowel sounds. No distension or tympany. No guarding or rebound. No evidence of tenderness throughout. Back: No spinal tenderness. No costovertebral tenderness. Full range of motion. Skin: Warm, dry with normal turgor. Normal color with no rashes, no lesions, and no evidence of cellulitis. MS/ Extremity: Pulses equal, no cyanosis. Neurovascular intact. Full, normal range of motion. 15:38 Constitutional: The patient appears alert, awake. 15:38 Neuro: Orientation: is normal, Mentation: is normal, Memory: is normal, Cranial nerves: grossly normal, Nystagmus is absent. Cerebellar function: normal finger to nose testing, Motor: strength is normal, Sensation: no obvious gross deficits, Abnormal movements: there are no abnormal movements. Vital Signs: 12:22 BP 146 / 75; Pulse 81; Resp 15; Temp 97.4; Pulse Ox 95% on R/A; Weight 90.72 kg (R); lk1 Height 5 ft. 9 in. (175.26 cm) (R); Pain 3/10; 13:47 BP 130 / 80; Pulse 87; Resp 16; Pulse Ox 96% on R/A; em 14:45 BP 134 / 73; Pulse 84; Resp 16; Pulse Ox 100% on R/A; em 15:53 BP 126 / 76; Pulse 78; Resp 15; Pulse Ox 97% on R/A; em 12:22 Body Mass Index 29.53 (90.72 kg, 175.26 cm) lk1 MDM: 12:51 Patient medically screened. gs 15:38 Differential diagnosis: cardiac arrhythmia, vertigo. Data reviewed: vital signs, nurses gs notes. Response to treatment: the patient's symptoms have markedly improved after treatment, the patient's symptoms have resolved after treatment, and as a result, I will discharge patient. 11/02 12:53 Order name: Basic Metabolic Panel; Complete Time: 13:35 11/02 12:53 Order name: CBC with Diff; Complete Time: 13:35 11/02 12:53 Order name: EKG; Complete Time: 12:53 11/02 12:53 Order name: Cardiac monitoring; Complete Time: 13:41 11/02 12:53 Order name: EKG - Nurse/Tech; Complete Time: 13:50 11/02 12:53 Order name: IV Saline Lock; Complete Time: 13:41 11/02 12:53 Order name: Labs collected and sent; Complete Time: 13:41 11/02 12:53 Order name: O2 Per Protocol; Complete Time: 13:41 11/02 12:53 Order name: O2 Sat Monitoring; Complete Time: 13:41 Administered Medications: 13:18 Drug: Valium 5 mg Route: IVP; Site: left antecubital; ss 13:41 Follow up: Response: No adverse reaction em 14:40 Drug: TORadol 30 mg Route: IVP; Site: left antecubital; ss 15:50 Follow up: Response: No adverse reaction; Pain is decreased em 14:40 Drug: Benadryl 25 mg Route: IVP; Site: left antecubital; ss 15:50 Follow up: Response: No adverse reaction; Marked relief of symptoms em Disposition: 11/02/17 15:19 Discharged to Home. Impression: Benign paroxysmal vertigo. - Condition is Stable. - Discharge Instructions: Benign Positional Vertigo. - Prescriptions for Benadryl 25 mg Oral Capsule - take 1 capsule by ORAL route every 6 hours As needed; 30 tablet. Valium 5 mg Oral Tablet - take 1 tablet by ORAL route every 8 hours As needed; 20 tablet. - Medication Reconciliation Form, Thank You Letter, Antibiotic Education, Prescription Opioid Use form. - Follow up: Emergency Department; When: 2 - 3 days; Reason: Re-evaluation by your physician. Follow up: Dinah Hinkle MD; When: 2 - 3 days; Reason: Re-evaluation by your physician. Follow up: Kris Morris MD; When: 2 - 3 days; Reason: Re-evaluation by your physician. Signatures: Dispatcher [employer] EDBhaskar De Jesus, GENERAL DENTIST/OWNER GENERAL DENTIST/OWNER em Mena Narayanan, RN RN ss Samia Escalante, RN RN lk1 David Joshua MD MD gs Corrections: (The following items were deleted from the chart) 15:49 12:53 Urine Dipstick-Ancillary ordered. em 15:56 15:19 11/02/2017 15:19 Discharged to Home. Impression: Benign paroxysmal vertigo. em Condition is Stable. Forms are Medication Reconciliation Form, Thank You Letter, Antibiotic Education, Prescription Opioid Use. Follow up: Emergency Department; When: 2 - 3 days; Reason: Re-evaluation by your physician. Follow up: Dinah Hinkle; When: 2 - 3 days; Reason: Re-evaluation by your physician. Follow up: Kris Morris; When: 2 - 3 days; Reason: Re-evaluation by your physician.
--- NOTE | 2017-11-02 15:20 | ER ---
Nurse's Notes [facility] Name: Angy Aguilera Age: 62 yrs Sex: Female : 1955 Arrival Date: 11/02/2017 Time: 12:12 Bed 18 Private MD: Out, [facility] Diagnosis: Benign paroxysmal vertigo Presentation: 11/02 12:21 Presenting complaint: Patient states: "Yesterday I felt a little dizzy. This morning it lk1 is a lot worse. It won't go away and it's making me sick to my stomach.". Transition of care: patient was not received from another setting of care. Onset of symptoms was November 01, 2017 at 08:00. Risk Assessment: Do you want to hurt yourself or someone else? Patient reports no desire to harm self or others. Initial Sepsis Screen: Does the patient meet any 2 criteria? No. Patient's initial sepsis screen is negative. Does the patient have a suspected source of infection? No. Patient's initial sepsis screen is negative. Care prior to arrival: None. 12:21 Method Of Arrival: Wheelchair lk1 12:21 Acuity: PATTI 3 lk1 Historical: - Allergies: 12:22 Sulfa (Sulfonamide Antibiotics); lk1 - PMHx: 12:22 GERD; Hypertension; Myocardial infarction; Ulcers; lk1 15:35 chronic neck pain; gs - PSHx: 12:22 Tonsillectomy; Hysterectomy; Cholecystectomy; lk1 - Immunization history:: Adult Immunizations up to date. - Social history:: Smoking status: Patient/guardian denies using tobacco. - Ebola Screening: : No symptoms or risks identified at this time. Screenin:32 Abuse screen: Denies threats or abuse. Nutritional screening: No deficits noted. em Tuberculosis screening: No symptoms or risk factors identified. Fall Risk None identified. Assessment: 12:40 General: Appears in no apparent distress. uncomfortable, Behavior is calm, cooperative. em Pain: Complains of pain in back of neck Pain currently is 3 out of 10 on a pain scale. Neuro: Level of Consciousness is awake, alert, obeys commands, Oriented to person, place, time, situation, Moves all extremities. Speech is normal, Facial symmetry appears normal, Intact Reports dizziness, with movement of head Denies headache photophobia. Cardiovascular: Capillary refill < 3 seconds Patient's skin is warm and dry. Respiratory: Airway is patent Respiratory effort is even, unlabored, Respiratory pattern is regular, symmetrical. GI: Abdomen is round distended. : No signs and/or symptoms were reported regarding the genitourinary system. EENT: No signs and/or symptoms were reported regarding the EENT system. Derm: Skin is intact, Skin is pink, warm \\T\\ dry. Musculoskeletal: Range of motion: intact in all extremities. 12:45 General: The previous assessment is accurate, call light remains within reach. . ss 13:30 Reassessment: Patient appears in no apparent distress at this time. Patient and/or em family updated on plan of care and expected duration. Pain level reassessed. Patient is alert, oriented x 3, equal unlabored respirations, skin warm/dry/pink. 14:30 Reassessment: Patient appears in no apparent distress at this time. Patient and/or em family updated on plan of care and expected duration. Pain level reassessed. Patient is alert, oriented x 3, equal unlabored respirations, skin warm/dry/pink. Patient states feeling better. 15:45 Reassessment: Patient appears in no apparent distress at this time. Patient and/or em family updated on plan of care and expected duration. Pain level reassessed. Patient is alert, oriented x 3, equal unlabored respirations, skin warm/dry/pink. Patient states feeling better. Patient states symptoms have improved. Vital Signs: 12:22 BP 146 / 75; Pulse 81; Resp 15; Temp 97.4; Pulse Ox 95% on R/A; Weight 90.72 kg (R); lk1 Height 5 ft. 9 in. (175.26 cm) (R); Pain 3/10; 13:47 BP 130 / 80; Pulse 87; Resp 16; Pulse Ox 96% on R/A; em 14:45 BP 134 / 73; Pulse 84; Resp 16; Pulse Ox 100% on R/A; em 15:53 BP 126 / 76; Pulse 78; Resp 15; Pulse Ox 97% on R/A; em 12:22 Body Mass Index 29.53 (90.72 kg, 175.26 cm) lk1 ED Course: 12:12 Patient arrived in ED. sb2 12:13 Out, [facility] is Private Physician. sb2 12:21 Triage completed. lk1 12:22 Arm band placed on right wrist. lk1 12:33 David Joshua MD is Attending Physician. gs 12:55 Bhaskar Saldana LVN is Primary Nurse. em 13:10 No provider procedures requiring assistance completed. Initial lab(s) drawn, by me, em sent to lab. Inserted saline lock: 20 gauge in left antecubital area, using aseptic technique. Blood collected. 13:32 Patient has correct armband on for positive identification. Bed in low position. Call em light in reach. Side rails up X2. Adult w/ patient. 15:18 Dinah Hinkle MD is Referral Physician. gs 15:18 Kris Morris MD is Referral Physician. gs 15:53 IV discontinued, intact, bleeding controlled, No redness/swelling at site. Pressure em dressing applied. Administered Medications: 13:18 Drug: Valium 5 mg Route: IVP; Site: left antecubital; ss 13:41 Follow up: Response: No adverse reaction em 14:40 Drug: TORadol 30 mg Route: IVP; Site: left antecubital; ss 15:50 Follow up: Response: No adverse reaction; Pain is decreased em 14:40 Drug: Benadryl 25 mg Route: IVP; Site: left antecubital; ss 15:50 Follow up: Response: No adverse reaction; Marked relief of symptoms em Outcome: 15:19 Discharge ordered by MD. gs 15:53 Discharged to home ambulatory, with family. em 15:53 Condition: good 15:53 Discharge instructions given to patient, family, Instructed on discharge instructions, follow up and referral plans. no drinking with medication, medication usage, Demonstrated understanding of instructions, follow-up care, medications, Prescriptions given X 2. 15:56 Patient left the ED. em Signatures: Bhaskar Saldana LVN LVN em Mena Narayanan RN RN Samia Escalante RN RN lk1 David Joshua MD MD Sandy Leonard sb2 Corrections: (The following items were deleted from the chart) 15:56 15:55 Reassessment: Patient appears in no apparent distress at this time. Patient em and/or family updated on plan of care and expected duration. Pain level reassessed. Patient is alert, oriented x 3, equal unlabored respirations, skin warm/dry/pink. em
[2017-11-02 16:00] VITALS: TEMP 97.4
[2017-11-02 16:04] VITALS: BP 126/76; O2SAT 97
--- NOTE | 2017-11-02 21:59 | EKG ---
Test Date: 2017-11-02 Test Time: 13:46:25 Supervisor Pigment Making: LORI MEASUREMENT RESULTS: Intervals: Rate: 76 SC: 170 QRSD: 74 QT: 388 QTc: 436 [place]: P: 43 SC: 170 QRS: 5 T: 54 INTERPRETIVE STATEMENTS: Normal sinus rhythm Normal ECG Compared to ECG 07/30/2017 08:49:47 Prolonged QT interval no longer present Electronically Signed On 11-02-17 21:58:45 CDT by Jayesh Loera
== END 2017-11-02 15:56 | disposition home or self-care (01) ==
LOC: ER 12:10
DX: H81.10 Benign paroxysmal vertigo, unspecified ear (principal); I10 Essential (primary) hypertension; I25.2 Old myocardial infarction; Z88.2 Allergy status to sulfonamides
CPT/HCPCS: 36415; 80048; 85025; 93005; 96374; 96375; 99284; J3360

== ENCOUNTER 2018-07-15 16:08 | Emergency (ER) | payer OTHER ==
[2018-07-15 17:02] LABS: Absolute Lymphocytes (CBC) 3.1 K/uL (0.7-4.9); Absolute Monocytes 0.5 K/uL (0.1-1.3); Absolute Neutrophil 4.1 K/uL (1.8-8.0); Basophils % 1.2 % (0-1.3); Eosinophils % 4.2 % (0-4.4); Lymphocytes % 37.6 % (15.3-44.8); MPV 8.8 fL (7.6-11.3); Monocytes % 6.2 % (3.3-12.3); RBC Red Blood Cell Count 5.14 M/uL (3.86-4.86)
[2018-07-15 17:05] LABS: Protime INR 0.96
[2018-07-15 17:33] LABS: ALT/SGPT 21 U/L (12-78); AST/SGOT 13 U/L (15-37); Albumin 3.7 g/dL (3.4-5.0); Alkaline Phosphatase 122 U/L (45-117); BUN Blood Urea Nitrogen 19 mg/dL (7-18); Bicarbonate 29 mmol/L (21-32); Bilirubin Direct < 0.1 mg/dL (0-0.2); Bilirubin Total 0.3 mg/dL (0.2-1.0); Glucose Level 100 mg/dL (74-106); Magnesium 2.2 mg/dL (1.8-2.4); NT PRO-BNP 36 pg/mL (<125); Potassium 3.8 mmol/L (3.5-5.1); Sodium Level 143 mmol/L (136-145); Troponin (Emerg Dept Use Only) < 0.02 ng/mL (0.0-0.045)
[2018-07-15] MEDS ORDERED: MORPHINE 4 MG/ML SYR ONE (18:24)
[2018-07-15] MEDS ORDERED: ONDANSETRON 4 MG/2 ML VIAL ONE (18:24)
--- NOTE | 2018-07-15 18:25 | RAD REPORT ---
EXAM DESCRIPTION: RAD - Chest Single View - 07/15/2018 6:19 pm CLINICAL HISTORY: Chest pain COMPARISON: July 2017 TECHNIQUE: AP portable chest image was obtained 1729 hours . FINDINGS: No focal mass, consolidation or failure finding. Chronic interstitial markings similar to comparison. Heart and vasculature are normal. No measurable pleural effusion and no pneumothorax. No acute bony abnormality seen. No acute aortic findings suspected. IMPRESSION: No acute cardiopulmonary process. Chronic interstitial changes are evident similar to comparison.
[2018-07-15] MEDS ORDERED: HYDROCODONE/APAP 10/325 TAB ONE (18:36)
--- NOTE | 2018-07-15 19:18 | ER ---
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 Transition of care: patient was not received from another setting of care. Onset of symptoms was July 15, 2018. Risk Assessment: Do you want to hurt yourself or someone else? Patient reports no desire to harm self or others. Initial Sepsis Screen: Does the patient meet any 2 criteria? No. Patient's initial sepsis screen is negative. Does the patient have a suspected source of infection? No. Patient's initial sepsis screen is negative. Care prior to arrival: None. 16:19 Method Of Arrival: Ambulatory sg 16:19 Acuity: PATTI 3 sg Historical: - Allergies: 16:21 Sulfa (Sulfonamide Antibiotics); sg - PMHx: 16:21 chronic neck pain; GERD; Hypertension; Myocardial infarction; Ulcers; sg - PSHx: 16:21 Tonsillectomy; Hysterectomy; Cholecystectomy; sg - Immunization history:: Adult Immunizations up to date. - Social history:: Smoking status: Patient/guardian denies using tobacco. - Ebola Screening: : Patient negative for fever greater than or equal to 101.5 degrees Fahrenheit, and additional compatible Ebola Virus Disease symptoms Patient denies exposure to infectious person Patient denies travel to an Ebola-affected area in the 21 days before illness onset No symptoms or risks identified at this time. Screenin:30 Abuse screen: Denies threats or abuse. Denies injuries from another. Nutritional hb screening: No deficits noted. Tuberculosis screening: No symptoms or risk factors identified. Fall Risk None identified. Assessment: 16:30 General: Appears in no apparent distress. Behavior is calm, cooperative. Pain: hb Complains of pain in right leg and left leg Pain does not radiate. Pain began 2-3 days ago. 16:30 Neuro: Level of Consciousness is awake, alert, obeys commands, Oriented to person, hb place, time, situation. Cardiovascular: Heart tones S1 S2 present Capillary refill < 3 seconds Patient's skin is warm and dry. Respiratory: Airway is patent Respiratory effort is even, unlabored, Respiratory pattern is regular, symmetrical. GI: No signs and/or symptoms were reported involving the gastrointestinal system. : No signs and/or symptoms were reported regarding the genitourinary system. EENT: No signs and/or symptoms were reported regarding the EENT system. Derm: Skin is intact, is healthy with good turgor. Musculoskeletal: No signs and/or symptoms reported regarding the musculoskeletal system. 17:15 Reassessment: Patient appears in no apparent distress at this time. No changes from hb previously documented assessment. Patient and/or family updated on plan of care and expected duration. Pain level reassessed. Patient is alert, oriented x 3, equal unlabored respirations, skin warm/dry/pink. 18:27 Reassessment: Patient appears in no apparent distress at this time. No changes from hb previously documented assessment. Patient and/or family updated on plan of care and expected duration. Pain level reassessed. Patient is alert, oriented x 3, equal unlabored respirations, skin warm/dry/pink. 19:00 Reassessment: Patient appears in no apparent distress at this time. No changes from ed1 previously documented assessment. Patient and/or family updated on plan of care and expected duration. Pain level reassessed. Patient is alert, oriented x 3, equal unlabored respirations, skin warm/dry/pink. Patient states feeling better. Patient states symptoms have improved. 20:00 Reassessment: Patient appears in no apparent distress at this time. No changes from ed1 previously documented assessment. Patient and/or family updated on plan of care and expected duration. Pain level reassessed. Patient is alert, oriented x 3, equal unlabored respirations, skin warm/dry/pink. 21:54 Reassessment: Pt no longer wants to be admitted. Pt speaking with Dr. Huber and states ed1 "I will just go home and follow up with my doctor.". Vital Signs: 16:18 BP 168 / 82; Pulse 94; Resp 22; Pulse Ox 98% on R/A; Weight 109.77 kg; Pain 4/10; sg 20:00 BP 146 / 78; Pulse 81; Resp 20; Pulse Ox 100% on R/A; Pain 2/10; ed1 ED Course: 16:09 Patient arrived in ED. as 16:09 Krzysztof Rosa DO is Private Physician. as 16:17 Arm band placed on. sg 16:19 Reilly Hawkins PA is PHCP. [facility] 16:19 Jaun Nieves MD is Attending Physician. [facility] 16:20 Triage completed. sg 16:32 EKG done, by a/c technician. reviewed by Reilly DYKES. sm3 16:37 Cristina Ge, RN is Primary Nurse. hb 16:54 Initial lab(s) drawn, by me, sent to lab. Inserted saline lock: 20 gauge in left dh3 antecubital area, using aseptic technique. Blood collected. 18:19 XRAY Chest (1 view) In Process Unspecified. EDMS 19:00 Patient has correct armband on for positive identification. radiation monitor on. Pulse ed1 ox on. NIBP on. 19:17 Kenji Huber MD is Hospitalizing Provider. [facility] 19:17 US Extremity Venous W Compression Brijesh In Process Unspecified. EDMS 19:18 Primary Nurse role handed off by Cristina Ge, JOSETTE ed1 19:18 Kiara Moses, JOSETTE is Primary Nurse. ed1 21:55 No provider procedures requiring assistance completed. IV discontinued, intact, ed1 bleeding controlled, No redness/swelling at site. Pressure dressing applied. Patient maintains SpO2 saturation greater than 95% on room air. Administered Medications: 18:27 Not Given (Patient Refused): morphine 4 mg IVP once hb 18:27 Not Given (Patient Refused): Zofran 4 mg IVP once; over 2 minutes hb 18:27 Drug: Harrod 10 mg-325 mg 1 tabs Route: PO; hb 20:00 Follow up: Response: No adverse reaction; Pain is decreased ed1 20:05 Drug: Aspirin Chewable Tablet 324 mg Route: PO; ed1 21:56 Follow up: Response: No adverse reaction ed1 Outcome: 19:17 Decision to Hospitalize by Provider. [facility] 21:55 AMA AMA form signed ed1 21:55 Condition: good 21:55 Discharge instructions given to patient, Instructed on discharge instructions, follow up and referral plans. Demonstrated understanding of instructions, follow-up care. 21:56 Patient left the ED. ed1 Signatures: Dispatcher [employer] Jon Sultana RN RN sg Mickail, Joel, PA PA jmm Martinez, Amelia as Riggs, Erika, RN RN ed1 Cristina Ge RN RN Estella Hinkle 3 Casandra Rdz 3 Corrections: (The following items were deleted from the chart) 17:25 16:30 Pain: Complains of pain in right leg and left leg Pain does not radiate. Pain hb began 2-3 days ago. hb
--- NOTE | 2018-07-15 19:18 | EDPHYS ---
Physician Documentation [facility] Name: Angy Aguilera Age: 63 yrs Sex: Female : 1955 Arrival Date: 07/15/2018 Time: 16:09 Bed 19 Private MD: Krzysztof Rosa ED Physician Jaun Nieves HPI: 07/15 16:39 This 63 yrs old Female presents to ER via Ambulatory with complaints of Chest jmm Pressure, Feet Swelling, Numbness Of Arm. 16:39 The patient or guardian reports chest pain that is located primarily in the substernal jmm area. Onset: acutely, 2 hour(s) ago. The pain does not radiate. The chest pain is described as a pressure. The patient has experienced a previous episode. This is a 63 year old female with a history of MD, CAD, HTN that presents to the ED with complaints of substernal chest pressure beginning approx 2 hours ago. Patient also complaints of chronic swelling to the legs worsening over the past 3 days. Patient denies fever. Patient was evaluated by pcp for leg swelling yesterday. . Historical: - Allergies: 16:21 Sulfa (Sulfonamide Antibiotics); sg - PMHx: 16:21 chronic neck pain; GERD; Hypertension; Myocardial infarction; Ulcers; sg - PSHx: 16:21 Tonsillectomy; Hysterectomy; Cholecystectomy; sg - Immunization history:: Adult Immunizations up to date. - Social history:: Smoking status: Patient/guardian denies using tobacco. - Ebola Screening: : Patient negative for fever greater than or equal to 101.5 degrees Fahrenheit, and additional compatible Ebola Virus Disease symptoms Patient denies exposure to infectious person Patient denies travel to an Ebola-affected area in the 21 days before illness onset No symptoms or risks identified at this time. ROS: 16:39 Constitutional: Negative for fever, chills, and weight loss. jmm 16:39 Cardiovascular: Positive for chest pain. 16:39 MS/extremity: Positive for swelling. 16:39 All other systems are negative. Exam: 16:39 Constitutional: This is a well developed, well nourished patient who is awake, alert, jmm and in no acute distress. Head/Face: atraumatic. Eyes: EOMI, no conjunctival erythema appreciated ENT: Moist Mucus Membranes Neck: Trachea midline, Supple Chest/axilla: Normal chest wall appearance and motion. Cardiovascular: Regular rate and rhythm. No edema appreciated Respiratory: Normal respirations, no respiratory distress appreciated Back: Normal ROM Skin: General appearance color normal 16:39 Cardiovascular: Rate: normal, Rhythm: regular. 16:39 Respiratory: the patient does not display signs of respiratory distress, Respirations: normal, Breath sounds: are clear throughout. 16:39 Musculoskeletal/extremity: bilateral edema is appreciated, full dorsalis pulse, compartments are soft, NVI. 16:39 Skin: Appearance: Color: normal in color. 16:39 Neuro: Orientation: is normal, Mentation: is normal, Memory: is normal. 16:39 Psych: Behavior/mood is pleasant, cooperative. Vital Signs: 16:18 BP 168 / 82; Pulse 94; Resp 22; Pulse Ox 98% on R/A; Weight 109.77 kg; Pain 4/10; sg 20:00 BP 146 / 78; Pulse 81; Resp 20; Pulse Ox 100% on R/A; Pain 2/10; ed1 MDM: 16:23 Patient medically screened. [facility] 19:16 Data reviewed: vital signs, nurses notes, lab test result(s), EKG, radiologic studies, [facility] plain films. Data interpreted: Pulse oximetry: on room air is 98 %. Interpretation: normal. ED course: I discussed the patient with Dr. Huber whom accepted admission. . 07/15 16:36 Order name: Basic Metabolic Panel; Complete Time: 17:45 [facility] 07/15 16:36 Order name: CBC with Diff; Complete Time: 17:45 [facility] 07/15 16:36 Order name: LFT's; Complete Time: 17:45 [facility] 07/15 16:36 Order name: Magnesium; Complete Time: 17:45 [facility] 07/15 16:36 Order name: NT PRO-BNP; Complete Time: 17:45 [facility] 07/15 16:36 Order name: PT-INR; Complete Time: 17:45 [facility] 07/15 16:36 Order name: Troponin (emerg Dept Use Only); Complete Time: 17:45 [facility] 07/15 16:36 Order name: XRAY Chest (1 view); Complete Time: 18:40 [facility] 07/15 16:36 Order name: EKG; Complete Time: 16:37 [facility] 07/15 16:36 Order name: US Extremity Venous W Compression Brijesh; Complete Time: 19:54 [facility] 07/15 16:36 Order name: Cardiac monitoring; Complete Time: 17:37 [facility] 07/15 16:36 Order name: EKG - Nurse/Tech; Complete Time: 17:37 [facility] 07/15 16:36 Order name: IV Saline Lock; Complete Time: 17:00 [facility] 07/15 16:36 Order name: Labs collected and sent; Complete Time: 17:00 [facility] 07/15 16:36 Order name: O2 Per Protocol; Complete Time: 17:00 [facility] 07/15 16:36 Order name: O2 Sat Monitoring; Complete Time: 17:00 [facility] Administered Medications: 18:27 Not Given (Patient Refused): morphine 4 mg IVP once hb 18:27 Not Given (Patient Refused): Zofran 4 mg IVP once; over 2 minutes hb 18:27 Drug: Hartline 10 mg-325 mg 1 tabs Route: PO; hb 20:00 Follow up: Response: No adverse reaction; Pain is decreased ed1 20:05 Drug: Aspirin Chewable Tablet 324 mg Route: PO; ed1 21:56 Follow up: Response: No adverse reaction ed1 Disposition: 07/16 08:06 Co-signature as Attending Physician, Jaun Nieves MD I agree with the assessment and paty plan of care. Disposition: 07/15/18 21:56 Patient has left against medical advice. - Patients states they are going to Home. - Condition is Stable. Signatures: Dispatcher [employer] EDMS Jon Kaufman RN RN Jaun Nieves MD MD cha Mickail, Joel, PA PA [facility] Kiara Moses RN RN ed1 Cristina Ge RN RN Corrections: (The following items were deleted from the chart) 07/15 21:49 19:17 Hospitalization Ordered by Kenji Huber MD for Observation. Preliminary ed1 diagnosis is Chest pain, unspecified. Bed requested for Telemetry/MedSurg (observation). Status is Observation. Condition is Stable. Problem is new. Symptoms have improved. UTI on Admission? No. [facility]
--- NOTE | 2018-07-15 19:34 | RAD REPORT ---
EXAM DESCRIPTION: US - Extrem Venous W Compress Brijesh - 07/15/2018 7:18 pm CLINICAL HISTORY: Leg pain and swelling COMPARISON: None. TECHNIQUE: Real-time sonographic evaluation of the bilateral lower extremity common femoral, superfi cial femoral, popliteal and posterior tibial veins was performed. FINDINGS: Normal compressibility, flow augmentation, phasic flow and spontaneous flow are identified in the left and right lower extremity common femoral, superficial femoral, popliteal and posterior t ibial veins. No intraluminal filling defects seen. IMPRESSION: No DVT in either lower extremity.
[2018-07-15 23:39] VITALS: BP 146/78; O2SAT 100
--- NOTE | 2018-07-16 10:33 | EKG ---
Test Date: 2018-07-15 Test Time: 16:18:27 Wafer Production Worker: ADELSO MEASUREMENT RESULTS: Intervals: Rate: 92 DC: 178 QRSD: 76 QT: 370 QTc: 457 [place]: P: 38 DC: 178 QRS: 10 T: 49 INTERPRETIVE STATEMENTS: Normal sinus rhythm Normal ECG Compared to ECG 11/02/2017 13:46:25 No significant changes Electronically Signed On 07-15-18 17:45:32 CDT by Jayesh Loera
== END 2018-07-15 21:56 | disposition left against medical advice (07) ==
LOC: ER 16:08
DX: R07.9 Chest pain, unspecified (principal)
CPT/HCPCS: 36415; 71045; 80048; 80076; 83735; 83880; 84484; 85025; 85610; 93005; 93970; 99285; J2405

== ENCOUNTER 2018-12-23 06:45 | Emergency (ER) | payer OTHER ==
[2018-12-23 07:21] LABS: Absolute Lymphocytes (CBC) 2.9 K/uL (0.7-4.9); Hematocrit 42.7 % (36.0-45.0); MPV 8.8 fL (7.6-11.3); RBC Red Blood Cell Count 5.11 M/uL (3.86-4.86)
[2018-12-23 07:22] LABS: Protime INR 0.93
[2018-12-23 07:37] LABS: ALT/SGPT 25 U/L (12-78); AST/SGOT 17 U/L (15-37); Albumin 3.6 g/dL (3.4-5.0); Alkaline Phosphatase 115 U/L (45-117); BUN Blood Urea Nitrogen 17 mg/dL (7-18); Bicarbonate 28 mmol/L (21-32); Bilirubin Direct < 0.1 mg/dL (0-0.2); Bilirubin Total 0.4 mg/dL (0.2-1.0); Glucose Level 114 mg/dL (74-106); Magnesium 2.4 mg/dL (1.8-2.4); NT PRO-BNP 33 pg/mL (<125); Potassium 3.7 mmol/L (3.5-5.1); Protein, Total 8.1 g/dL (6.4-8.2); Sodium Level 145 mmol/L (136-145); Troponin (Emerg Dept Use Only) < 0.02 ng/mL (0.0-0.045)
--- NOTE | 2018-12-23 08:40 | RAD REPORT ---
EXAM DESCRIPTION: RAD - Chest Single View - 12/23/2018 8:18 am CLINICAL HISTORY: DYSPNEA Chest pain. COMPARISON: Chest Single View dated 07/15/2018; Chest Single View dated 07/29/2017; Chest Single View dated 09/02/2016; CHEST SINGLE VIEW dated 07/10/2012 FINDINGS: Portable technique limits examination quality. The lungs are grossly clear. The heart is normal in size. No displaced fractures. IMPRESSION: No acute intrathoracic process suspected.
--- NOTE | 2018-12-23 09:39 | EKG ---
Test Date: 2018-12-23 Test Time: 06:58:16 Infrastructure Security Architect: GARRY MEASUREMENT RESULTS: Intervals: Rate: 86 MD: 168 QRSD: 74 QT: 396 QTc: 473 [place]: P: 47 MD: 168 QRS: 18 T: 46 INTERPRETIVE STATEMENTS: Normal sinus rhythm Low voltage QRS Inferior infarct, age undetermined Abnormal ECG Compared to ECG 07/15/2018 16:18:27 Low QRS voltage now present Myocardial infarct finding now present Electronically Signed On 12-23-18 09:38:33 CDT by Jayesh Loera
--- NOTE | 2018-12-23 09:46 | ER ---
Nurse's Notes [facility] Name: Angy Aguilera Age: 63 yrs Sex: Female : 1955 Arrival Date: 12/23/2018 Time: 06:46 Bed 6 Private MD: Diagnosis: Hypertensive Urgency Presentation: 12/23 07:02 Presenting complaint: Patient states: "I am not feeling good at all. I woke up at 0445 jd3 with reflux and it moved to nausea and a headache. I then started had trouble breathing and felt flush all over. I took my blood pressure at home and it was very high. I took 325 mg aspirin and a 0.4 mg Nitro before I came.". Transition of care: patient was not received from another setting of care. Onset of symptoms was December 23, 2018. Risk Assessment: Do you want to hurt yourself or someone else? Patient reports no desire to harm self or others. Initial Sepsis Screen: Does the patient meet any 2 criteria? No. Patient's initial sepsis screen is negative. Does the patient have a suspected source of infection? No. Patient's initial sepsis screen is negative. Care prior to arrival: Medication(s) given: aspirin 325 mg and Nitro 0.4 mg. 07:02 Method Of Arrival: Ambulatory jd3 07:02 Acuity: PATTI 2 jd3 Historical: - Allergies: 07:11 Sulfa (Sulfonamide Antibiotics); jd3 07:11 Morphine; jd3 - Home Meds: 07:11 Metoprolol Tartrate Oral [Active]; high cholesteral med [Active]; jd3 - PMHx: 07:11 chronic neck pain; GERD; Hypertension; Myocardial infarction; Ulcers; High Cholesterol; jd3 - PSHx: 07:11 Tonsillectomy; Hysterectomy; Cholecystectomy; Heart stents; Appendectomy; FATOU feet; jd3 - Immunization history:: Adult Immunizations up to date. - Social history:: Smoking status: Patient/guardian denies using tobacco, the patient reports quitting approximately 7 years ago. - Ebola Screening: : Patient negative for fever greater than or equal to 101.5 degrees Fahrenheit, and additional compatible Ebola Virus Disease symptoms. Screenin:14 Abuse screen: Denies threats or abuse. Denies injuries from another. Nutritional ph screening: No deficits noted. Tuberculosis screening: No symptoms or risk factors identified. Fall Risk None identified. Assessment: 07:20 General: Appears in no apparent distress. comfortable, Behavior is calm, cooperative, ph appropriate for age. Pain: Complains of pain in head. Neuro: Level of Consciousness is awake, alert, obeys commands, Oriented to person, place, time, situation, Reports dizziness, headache. Cardiovascular: Reports chest pain, lightheadedness, nausea, shortness of breath, Capillary refill < 3 seconds in bilateral fingers Patient's skin is warm and dry. Rhythm is sinus rhythm Chest pain is described as mild. Respiratory: Airway is patent Respiratory effort is even, unlabored, Respiratory pattern is regular, symmetrical, Breath sounds are clear bilaterally. GI: Reports nausea, Patient currently denies abdominal pain, diarrhea, vomiting. Derm: Skin is intact, Skin is pink, warm \\T\\ dry. Musculoskeletal: Circulation, motion, and sensation intact. Range of motion: intact in all extremities. 08:21 Reassessment: Patient appears in no apparent distress at this time. Patient and/or ph family updated on plan of care and expected duration. Pain level reassessed. Patient is alert, oriented x 3, equal unlabored respirations, skin warm/dry/pink. BP decreased to 131/65, pt states that she is feeling better, will repeat cardiac enzymes at 0900, family at bedside. 09:07 Reassessment: Patient appears in no apparent distress at this time. Patient and/or ph family updated on plan of care and expected duration. Pain level reassessed. Patient is alert, oriented x 3, equal unlabored respirations, skin warm/dry/pink. Pt resting quietly at this time, denies pain or nausea, awaiting results of repeat blood work, VSS. 10:05 Reassessment: Patient appears in no apparent distress at this time. Patient and/or ph family updated on plan of care and expected duration. Pain level reassessed. Patient is alert, oriented x 3, equal unlabored respirations, skin warm/dry/pink. Pt d/c home w/ family. Vital Signs: 07:11 BP 175 / 86; Pulse 90; Resp 19 S; Temp 97.4(O); Pulse Ox 97% on R/A; Weight 97.07 kg jd3 (R); Height 5 ft. 9 in. (175.26 cm) (R); Pain 3/10; 07:57 BP 133 / 69; Pulse 76; Resp 18; Pulse Ox 98% on R/A; ph 09:08 BP 130 / 63; Pulse 72; Resp 18; Pulse Ox 97% on R/A; ph 10:05 BP 131 / 67; Pulse 71; Resp 18; Temp 97.9; Pulse Ox 97% on R/A; ph 07:11 Body Mass Index 31.60 (97.07 kg, 175.26 cm) jd3 ED Course: 06:46 Patient arrived in ED. ds1 06:54 Wilson Jimenez PA is PHCP. jr8 06:54 Jaun Nieves MD is Attending Physician. jr8 07:04 Triage completed. jd3 07:10 X-ray completed. Portable x-ray completed in exam room. Patient tolerated procedure jb2 well. 07:10 Inserted saline lock: 20 gauge in left antecubital area, using aseptic technique. Blood ph collected. 07:12 Arm band placed on. EKG completed in triage. Results shown to MD. jd3 07:14 Deborah Gomes, RN is Primary Nurse. ph 07:15 Patient has correct armband on for positive identification. Placed in gown. Bed in low ph position. Call light in reach. Side rails up X 1. phototypesetting equipment monitor on. Pulse ox on. NIBP on. Door closed. Noise minimized. Warm blanket given. Head of bed elevated. 08:23 XRAY Chest (1 view) In Process Unspecified. EDMS 10:05 No provider procedures requiring assistance completed. IV discontinued, intact, ph bleeding controlled, No redness/swelling at site. Pressure dressing applied. Administered Medications: No medications were administered Outcome: 09:45 Discharge ordered by . jrGo 10:06 Discharged to home ambulatory, with family. ph 10:06 Condition: improved 10:06 Discharge instructions given to patient, Instructed on discharge instructions, follow up and referral plans. Demonstrated understanding of instructions, follow-up care. 10:06 Patient left the ED. ph Signatures: Dispatcher [employer] EDMS Berenicenickolas Ga jb2 MunizCatarina thompson ds1 Wilson Jimenez PA PA jr8 Deborah Gomes RN RN ph Jose Burnette RN RN jd3
--- NOTE | 2018-12-23 09:47 | EDPHYS ---
Physician Documentation [facility] Name: Angy Aguilera Age: 63 yrs Sex: Female : 1955 Arrival Date: 12/23/2018 Time: 06:46 Bed 6 Private MD: ED Physician Jaun Nieves HPI: 12/23 08:00 This 63 yrs old Female presents to ER via Ambulatory with complaints of jr8 Shortness Of Breath, High Blood Pressure. 08:00 The patient has shortness of breath at rest. Onset: The symptoms/episode began/occurred jr8 acutely, today. Duration: The symptoms are continuous, but are steadily getting better. The patient's shortness of breath has no apparent modifying factors. Associated signs and symptoms: Pertinent positives: head pressure, weakness, nausea. Severity of symptoms: At their worst the symptoms were moderate in the emergency department the symptoms have improved mildly. The patient has not experienced similar symptoms in the past. The patient has not recently seen a physician. Patient stated that she woke up not feeling well this morning. Described symptoms above. Took BP this morning and was markedly elevated in the 190s and 200s. Stated that she took a nitro and some aspirin. History of [place] in past but not having chest pain. Stated that she has been under a lot of stress lately because she took custody of her grandchild. More crying and has felt more labile. Currently not on any BP medication . Historical: - Allergies: 07:11 Sulfa (Sulfonamide Antibiotics); jd3 07:11 Morphine; jd3 - Home Meds: 07:11 Metoprolol Tartrate Oral [Active]; high cholesteral med [Active]; jd3 - PMHx: 07:11 chronic neck pain; GERD; Hypertension; Myocardial infarction; Ulcers; High Cholesterol; jd3 - PSHx: 07:11 Tonsillectomy; Hysterectomy; Cholecystectomy; Heart stents; Appendectomy; FATOU feet; jd3 - Immunization history:: Adult Immunizations up to date. - Social history:: Smoking status: Patient/guardian denies using tobacco, the patient reports quitting approximately 7 years ago. - Ebola Screening: : Patient negative for fever greater than or equal to 101.5 degrees Fahrenheit, and additional compatible Ebola Virus Disease symptoms. ROS: 08:00 Eyes: Negative for injury, pain, redness, and discharge, ENT: Negative for injury, jr8 pain, and discharge, Neck: Negative for injury, pain, and swelling, Cardiovascular: Negative for chest pain, palpitations, and edema, Back: Negative for injury and pain, MS/Extremity: Negative for injury and deformity, Skin: Negative for injury, rash, and discoloration. 08:00 Respiratory: Positive for shortness of breath, Negative for cough, dyspnea on exertion, orthopnea, sputum production, wheezing. 08:00 Abdomen/GI: Positive for nausea, Negative for abdominal pain, vomiting, diarrhea, constipation, abdominal cramps, abdominal distension. 08:00 Neuro: Positive for headache, Negative for altered mental status, dizziness, gait disturbance, hearing loss, loss of consciousness, numbness, seizure activity, speech changes, syncope, near syncope, tingling, tinnitus, tremor, visual changes, weakness. Exam: 08:00 Eyes: Pupils equal round and reactive to light, extra-ocular motions intact. Lids and jr8 lashes normal. Conjunctiva and sclera are non-icteric and not injected. Cornea within normal limits. Periorbital areas with no swelling, redness, or edema. ENT: Nares patent. No nasal discharge, no septal abnormalities noted. Tympanic membranes are normal and external auditory canals are clear. Oropharynx with no redness, swelling, or masses, exudates, or evidence of obstruction, uvula midline. Mucous membranes moist. Neck: Trachea midline, no thyromegaly or masses palpated, and no cervical lymphadenopathy. Supple, full range of motion without nuchal rigidity, or vertebral point tenderness. No Meningismus. Cardiovascular: Regular rate and rhythm with a normal S1 and S2. No gallops, murmurs, or rubs. Normal PMI, no JVD. No pulse deficits. Respiratory: Lungs have equal breath sounds bilaterally, clear to auscultation and percussion. No rales, rhonchi or wheezes noted. No increased work of breathing, no retractions or nasal flaring. Abdomen/GI: Soft, non-tender, with normal bowel sounds. No distension or tympany. No guarding or rebound. No evidence of tenderness throughout. Back: No spinal tenderness. No costovertebral tenderness. Full range of motion. Skin: Warm, dry with normal turgor. Normal color with no rashes, no lesions, and no evidence of cellulitis. MS/ Extremity: Pulses equal, no cyanosis. Neurovascular intact. Full, normal range of motion. Neuro: Awake and alert, GCS 15, oriented to person, place, time, and situation. Cranial nerves II-XII grossly intact. Motor strength 5/5 in all extremities. Sensory grossly intact. Cerebellar exam normal. Normal gait. Vital Signs: 07:11 BP 175 / 86; Pulse 90; Resp 19 S; Temp 97.4(O); Pulse Ox 97% on R/A; Weight 97.07 kg jd3 (R); Height 5 ft. 9 in. (175.26 cm) (R); Pain 3/10; 07:57 BP 133 / 69; Pulse 76; Resp 18; Pulse Ox 98% on R/A; ph 09:08 BP 130 / 63; Pulse 72; Resp 18; Pulse Ox 97% on R/A; ph 10:05 BP 131 / 67; Pulse 71; Resp 18; Temp 97.9; Pulse Ox 97% on R/A; ph 07:11 Body Mass Index 31.60 (97.07 kg, 175.26 cm) jd3 MDM: 06:54 Patient medically screened. jr8 09:43 Data reviewed: vital signs, nurses notes, lab test result(s), EKG, radiologic studies, jr8 plain films. Data interpreted: Pulse oximetry: on room air is 97 %. Interpretation: normal. Counseling: I had a detailed discussion with the patient and/or guardian regarding: the historical points, exam findings, and any diagnostic results supporting the discharge/admit diagnosis, lab results, radiology results, the need for outpatient follow up, a family practitioner, to return to the emergency department if symptoms worsen or persist or if there are any questions or concerns that arise at home. ED course: Patient feeling much better. Explained to patient that most likely what she felt was secondary to HTN. Now that BP is normal symptoms have resolved. Close observation at home and f/u with PCP needed . 12/23 06:55 Order name: Basic Metabolic Panel; Complete Time: 07:51 12/23 06:55 Order name: CBC with Diff; Complete Time: 07:51 12/23 06:55 Order name: LFT's; Complete Time: 07:12/23 06:55 Order name: Magnesium; Complete Time: 07:51 12/23 06:55 Order name: NT PRO-BNP; Complete Time: 07:51 12/23 06:55 Order name: PT-INR; Complete Time: 07:51 12/23 06:55 Order name: Troponin (emerg Dept Use Only); Complete Time: 07:51 12/23 06:55 Order name: XRAY Chest (1 view); Complete Time: 08:44 12/23 06:55 Order name: EKG; Complete Time: 06:57 12/23 06:55 Order name: Cardiac monitoring; Complete Time: 07:06 12/23 06:55 Order name: EKG - Nurse/Tech; Complete Time: 07:06 12/23 06:55 Order name: IV Saline Lock; Complete Time: 07:15 12/23 06:55 Order name: Labs collected and sent; Complete Time: 07:15 12/23 08:44 Order name: Troponin (emerg Dept Use Only): 0900 redraw; Complete Time: 09:43 12/23 06:55 Order name: O2 Per Protocol; Complete Time: 07:06 12/23 06:55 Order name: O2 Sat Monitoring; Complete Time: 07:06 Administered Medications: No medications were administered Disposition: 16:16 Co-signature as Attending Physician, Jaun Nieves MD I agree with the assessment and paty plan of care. Disposition: 12/23/18 09:45 Discharged to Home. Impression: Hypertensive Urgency . - Condition is Stable. - Discharge Instructions: Hypertension. - Medication Reconciliation Form, Thank You Letter, Antibiotic Education, Prescription Opioid Use form. - Follow up: Private Physician; When: 1 - 2 days; Reason: Recheck today's complaints, Continuance of care, Re-evaluation by your physician. - Problem is new. - Symptoms have improved. Signatures: Dispatcher [employer] Jaun Chaparro MD MD cha Roszak, Josh, PA PA jr8 Deborah Gomes RN RN ph Jose Burnette RN RN jd3 Corrections: (The following items were deleted from the chart) 10:06 09:45 12/23/2018 09:45 Discharged to Home. Impression: Hypertensive Urgency . Condition ph is Stable. Forms are Medication Reconciliation Form, Thank You Letter, Antibiotic Education, Prescription Opioid Use. Follow up: Private Physician; When: 1 - 2 days; Reason: Recheck today's complaints, Continuance of care, Re-evaluation by your physician. Problem is new. Symptoms have improved. jr8
[2018-12-23 10:26] VITALS: O2SAT 97
[2018-12-23 10:28] VITALS: BP 131/67; TEMP 97.9
== END 2018-12-23 10:06 | disposition home or self-care (01) ==
LOC: ER 06:45
DX: I16.0 Hypertensive urgency (principal); E78.00 Pure hypercholesterolemia, unspecified; I10 Essential (primary) hypertension; Z88.2 Allergy status to sulfonamides; Z88.6 Allergy status to analgesic agent
CPT/HCPCS: 36415; 71045; 80048; 80076; 83735; 83880; 84484; 85025; 85610; 93005; 99284

== ENCOUNTER 2020-07-11 16:02 | Emergency (ER) | payer SELFPAY ==
--- OUTSIDE RECORDS SUMMARY | 2020-07-11 16:04 | XMS REPORT | Continuity of Care Document ---
:[address] [facility] t Address [address] [place] [address] [address]. [address] [place] [address] Care Team Providers Name Role Phone Saurabh LAKE Attending Clinician Problems This patient has no known problems. Allergies, Adverse Reactions, Alerts This patient has no known allergies or adverse reactions. Medications This patient has no known medications. Procedures This patient has no known procedures. Encounters Start End Encounter Admission Attending Care Care Encounter Source Date/Time Date/Time Type Type Clinicians Facility Department ID 2020-07-10 2020-07-10 Office CHUN Wiley [id number] 10:58:44 11:18:44 Visit Dona Cosme [id number] Steph [id number] Aiden [id number] nal 059 Building Results This patient has no known results.
--- NOTE | 2020-07-11 17:21 | ER ---
Nurse's Notes [facility] Name: Angy Aguilera Age: 65 yrs Sex: Female : 1955 Arrival Date: 07/11/2020 Time: 16:05 Bed 20 Private MD: Tim Yee S Diagnosis: Epistaxis Presentation: 07/11 16:18 Chief complaint: Patient states: L nare bleeding since 0845 this morning. No trauma or ll1 known injury, states she believes she had a sinus infection before the bleeding started today. Went to [place], nasal packing inserted L nare at 1330 today. Severe pain and swelling to L side of face since 1330. Coronavirus screen: Client denies travel out of the [place] in the last 14 days. At this time, the client does not indicate any symptoms associated with coronavirus-19. Ebola Screen: Patient denies travel to an Ebola-affected area in the 21 days before illness onset. Initial Sepsis Screen: Does the patient meet any 2 criteria? No. Patient's initial sepsis screen is negative. Does the patient have a suspected source of infection? Yes: Other: nasal bleeding/infection. Risk Assessment: Do you want to hurt yourself or someone else? Patient reports no desire to harm self or others. Onset of symptoms was July 11, 2020. 16:18 Method Of Arrival: Ambulatory ll1 16:18 Acuity: PATTI 4 ll1 Historical: - Allergies: 16:21 Morphine; ll1 16:21 Sulfa (Sulfonamide Antibiotics); ll1 - PMHx: 16:21 chronic neck pain; GERD; High Cholesterol; Hypertension; Myocardial infarction; Ulcers; ll1 - PSHx: 16:21 Tonsillectomy; Hysterectomy; Cholecystectomy; Heart stents; Appendectomy; FATOU feet; ll1 - Immunization history:: Flu vaccine is not up to date. - Social history:: Smoking status: Patient denies any tobacco usage or history of. Screenin:36 Abuse screen: Denies threats or abuse. Nutritional screening: No deficits noted. bw Tuberculosis screening: No symptoms or risk factors identified. Fall Risk Gait- Weak (10 pts.). Assessment: 16:36 Pain: Complains of pain in left cheek. Neuro: No deficits noted. Cardiovascular: No bw deficits noted. Respiratory: No deficits noted. GI: No deficits noted. 17:36 Reassessment: Patient appears in no apparent distress at this time. No changes from bw previously documented assessment. Patient and/or family updated on plan of care and expected duration. Pain level reassessed. Patient is alert, oriented x 3, equal unlabored respirations, skin warm/dry/pink. Vital Signs: 16:18 BP 162 / 83; Pulse 73; Resp 17; Temp 97.5; Pulse Ox 100% ; Weight 99.79 kg; Height 5 ll1 ft. 9 in. (175.26 cm); Pain 8/10; 17:20 BP 154 / 80; Pulse 71; Resp 18; Pulse Ox 100% on R/A; bw 16:18 Body Mass Index 32.49 (99.79 kg, 175.26 cm) ll1 ED Course: 16:05 Patient arrived in ED. am2 16:05 Tim Yee MD is Private Physician. 2 16:08 [facility] 16:09 Mendoza Anderson MD is Attending Physician. [facility] 16:21 Triage completed. 1 16:21 Arm band placed on. 1 16:35 Aubree Soto, JOSETTE is Primary Nurse. bw 16:36 Patient has correct armband on for positive identification. Bed in low position. Call bw light in reach. Side rails up X 1. Warm blanket given. 16:36 No provider procedures requiring assistance completed. bw Administered Medications: No medications were administered Outcome: 17:21 Discharge ordered by . [facility] 18:04 Patient left the ED. bd Signatures: Sury Mariee Joel, PA PA [facility] Yaz Kirk 2 Jacki Adamson, JOSETTE RN 1 Aubree Soto RN RN bw Corrections: (The following items were deleted from the chart) 18:02 18:02 BP 154 / 80; Pulse 71bpm; Resp 18bpm; Pulse Ox 100% RA; bw bw
--- NOTE | 2020-07-11 17:22 | EDPHYS ---
Physician Documentation [facility] Name: Anyg Aguilera Age: 65 yrs Sex: Female : 1955 Arrival Date: 07/11/2020 Time: 16:05 Bed 20 Private MD: Tim Yee S ED Physician Mendoza Anderson HPI: 07/11 16:50 This 65 yrs old Female presents to ER via Ambulatory with complaints of Nose jmm Bleed. 16:50 The patient presents with a nose bleed. Onset: The symptoms/episode began/occurred jmm today. Modifying factors: The symptoms are alleviated by nothing. the symptoms are aggravated by nothing. Associated signs and symptoms: Loss of consciousness: the patient experienced no loss of consciousness. Patient states she was evaluated by [place] ED around 130 pm. Patient had a rhino rocket inserted. Patient states she can not tolerate the pain. . Historical: - Allergies: 16:21 Morphine; ll1 16:21 Sulfa (Sulfonamide Antibiotics); ll1 - PMHx: 16:21 chronic neck pain; GERD; High Cholesterol; Hypertension; Myocardial infarction; Ulcers; ll1 - PSHx: 16:21 Tonsillectomy; Hysterectomy; Cholecystectomy; Heart stents; Appendectomy; FATOU feet; ll1 - Immunization history:: Flu vaccine is not up to date. - Social history:: Smoking status: Patient denies any tobacco usage or history of. ROS: 16:50 Constitutional: Negative for fever, chills, and weight loss, Cardiovascular: Negative jmm for chest pain, palpitations, and edema, Respiratory: Negative for shortness of breath, cough, wheezing, and pleuritic chest pain. 16:50 ENT: Positive for nose bleed. 16:50 All other systems are negative. Exam: 16:50 Constitutional: This is a well developed, well nourished patient who is awake, alert, jmm and in no acute distress. Head/Face: atraumatic. Eyes: EOMI, no conjunctival erythema appreciated 16:50 Neck: Trachea midline, Supple Chest/axilla: Normal chest wall appearance and motion. Cardiovascular: Regular rate and rhythm. No edema appreciated Respiratory: Normal respirations, no respiratory distress appreciated Abdomen/GI: Non distended, soft Back: Normal ROM Skin: General appearance color normal MS/ Extremity: Moves all extremities, no obvious deformities appreciated, no edema noted to the lower extremities Neuro: Awake and alert, normal gait Psych: Behavior is normal, Mood is normal, Patient is cooperative and pleasant 16:50 ENT: Nose: bleeding, and is minimal. Vital Signs: 16:18 BP 162 / 83; Pulse 73; Resp 17; Temp 97.5; Pulse Ox 100% ; Weight 99.79 kg; Height 5 ll1 ft. 9 in. (175.26 cm); Pain 8/10; 17:20 BP 154 / 80; Pulse 71; Resp 18; Pulse Ox 100% on R/A; bw 16:18 Body Mass Index 32.49 (99.79 kg, 175.26 cm) ll1 MDM: 16:48 Patient medically screened. landry 17:19 Data reviewed: vital signs, nurses notes. Counseling: I had a detailed discussion with emerald the patient and/or guardian regarding: the historical points, exam findings, and any diagnostic results supporting the discharge/admit diagnosis, the need for outpatient follow up, to return to the emergency department if symptoms worsen or persist or if there are any questions or concerns that arise at home. ED course: Rhino rocket removed. nasal pledget was inserted. patient tolerated this well. Patient advised to follow up with ENT. Otherwise given strict return precautions. patient understood and agrees with the plan of care. . Administered Medications: No medications were administered Disposition: 18:16 Co-signature as Attending Physician, Mendoza Anderson MD. rn Disposition: 07/11/20 17:21 Discharged to Home. Impression: Epistaxis. - Condition is Stable. - Discharge Instructions: Nosebleed, Adult. - Medication Reconciliation Form, Thank You Letter, Antibiotic Education, Prescription Opioid Use form. - Follow up: Private Physician; When: 2 - 3 days; Reason: Recheck today's complaints, Continuance of care, Re-evaluation by your physician. Signatures: Sury Mariee Joel, PA PA jmm Nieto, Roman, MD MD rn Lewis, Lynsay, RN RN ll1 Corrections: (The following items were deleted from the chart) 18:04 17:21 07/11/2020 17:21 Discharged to Home. Impression: Epistaxis. Condition is Stable. bd Forms are Medication Reconciliation Form, Thank You Letter, Antibiotic Education, Prescription Opioid Use. Follow up: Private Physician; When: 2 - 3 days; Reason: Recheck today's complaints, Continuance of care, Re-evaluation by your physician. emerald
[2020-07-12 13:47] VITALS: TEMP 97.5; O2SAT 100
[2020-07-12 13:49] VITALS: BP 154/80
== END 2020-07-11 18:04 | disposition home or self-care (01) ==
LOC: ER 16:02
DX: R04.0 Epistaxis (principal); I10 Essential (primary) hypertension; Z95.818 Presence of other cardiac implants and grafts; Z88.2 Allergy status to sulfonamides; Z88.5 Allergy status to narcotic agent
CPT/HCPCS: 99281

== ENCOUNTER 2022-08-27 15:12 | Emergency (ER) | payer OTHER, SELFPAY ==
--- OUTSIDE RECORDS SUMMARY | 2022-08-27 15:20 | XMS REPORT | Continuity of Care Document ---
:1955 Author Organization [facility] t Address [address] [place] [address] [place] [id number] Care Team Providers Name Role Phone NELLA CARTAGENA Primary Care Physician Unavailable NELLA CARTAGENA Attending Clinician Unavailable BARBARA BALBUENA Attending Clinician Unavailable KIKO SINCLAIR Attending Clinician Unavailable KIKO SINCLAIR Attending Clinician Unavailable DONA LANZA Attending Clinician Unavailable JONA PERSAUD Attending Clinician Unavailable Jona Persaud MD Attending Clinician [facility] Sleep Lab Attending Clinician Unavailable Kiko Sinclair MD Attending Clinician Nella Bean Attending Clinician Lab, Ang - Db Attending Clinician Unavailable Michelle Leon LVN Attending Clinician Unavailable Doctor Unassigned, [place] Attending Clinician Unavailable Barbara Balbuena MD Attending Clinician Dona Lanza MD Attending Clinician RANDI ROYAL Attending Clinician Unavailable Randi Royal MD Attending Clinician Radhika Schaefer MD Attending Clinician MATT HI Attending Clinician Unavailable Lia Gresham MD Attending Clinician LIA GRESHAM Attending Clinician Unavailable GREY OLIVERA Attending Clinician Unavailable Grey Olivera MD Attending Clinician LISA OLIVAREZ Attending Clinician Unavailable Raiza Gimenez PT Attending Clinician Unavailable Lisa Olivarez MD Attending Clinician Bette [employer], Matt Attending Clinician MISAEL YARBROUGH Attending Clinician Unavailable Misael Yarbrough MD Attending Clinician Draw, Clc-Bls Lab Attending Clinician Unavailable Only, Adc Test Attending Clinician Unavailable Maria Alejandra Thakkar Attending Clinician MARIA ALEJANDRA RUSSELL Attending Clinician Unavailable Gramm Kallie ROBINS Attending Clinician Therapy, Clc Covid Infusion Attending Clinician Unavailable Hermes Amos MD Attending Clinician HERMES AMOS Attending Clinician Unavailable BRICE MORTON Attending Clinician Unavailable Brice Morton DO Attending Clinician Giovanna Landaverde Attending Clinician JULIANO BLEVINS Attending Clinician Unavailable Giovanna HOWELL Attending Clinician Unavailable VENANCIO RICHARD Attending Clinician Unavailable JONA PERSAUD Admitting Clinician Unavailable NELLA CARTAGENA Admitting Clinician Unavailable RADHIKA SCHAEFER Admitting Clinician Unavailable MATT HI Admitting Clinician Unavailable RANDI ROYAL Admitting Clinician Unavailable Randi Royal MD Admitting Clinician RHIANNON STEVENSON Admitting Clinician Unavailable Giovanna HOWELL Admitting Clinician Unavailable Payers Payer Name Policy Type Policy Number Effective Date Expiration Date David coronadorosanne RENETTA/FINESSE [id number] 2021 MEDICARE ADVANTAGE 00:00:00 [facility] [id number] 2019 CHOICE 00:00:00 Problems Condition Condition Condition Status Onset Resolution Last Treating Co mments Source Name Details Category Date Date Treatment Clinician Date Chronic Chronic Disease Active Univers right-side right-side 3-16 it y of d low back d [place] 00:[place] pain pain 00 Medical without without Branch sciatica sciatica Weakness Weakness Disease Active Unive rs of both of both 3-16 ity of lower lower 00:00: [place] extremitie extremitie 00 Me dical s s Branch Abdominal Abdominal Disease Active Uni vers weakness weakness 3-16 ity of 00:00: 00 Medical Branch Screening Screening Disease Active Overview: Univers for for 05-08 Formattin ity of colorectal colorectal 00:00: g of this [place] cancer cancer 00 note Medical might be Branch different from the original. Added automatic ally from request for surgery [id number] Gastroesop Gastroesop Disease Active Overview : Univers hageal hageal 05-08 Formattin ity of reflux reflux 00:00: g of this [place] disease, disease, 00 note Medica l unspecifie unspecifie might be Branch d whether d whether different esophagiti esophagiti from the s present s present original. Added automatic ally from request for surgery [id number] History of History of Disease Active Overview : Univers gastric gastric 05-08 Formattin ity o f ulcer ulcer 00:00: g of this [place] 00 note Medical might be Branch different from the original. 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 Unive rs artery artery 8-25 ity of disease disease 00:00: [place] involving involving 00 Medi [place] coronary coronary artery of artery of [place] heart with heart with angina angina pectoris pectoris Chest pain Chest pain Disease Active 2020-0 U nivers 8-24 ity of 00:00: 00 Medical Branch Essential Essential Disease Active Uni vers hypertensi hypertensi 8-24 it y of on on 00:00: 00 Medical Branch Dyslipidem Dyslipidem Disease Active 2020-0 U nivers ia ia 8-24 ity of 00:00: 00 Medical Branch Nonobstruc Nonobstruc Disease Active 2020-0 U nivers tive tive 8-24 ity of atheroscle atheroscle 00:00: [place] rosis of rosis of 00 Medica l coronary coronary Branch artery artery Cystocele, Cystocele, Disease Active 2020-0 U nivers midline midline 2-20 ity of 00:00: [place] 00 Medical Branch Stress Stress Disease Active 2020-0 Univers incontinen incontinen 2-20 it y of ce of ce of 00:00: [place] urine urine 00 Medical Branch Vaginal Vaginal Disease Active 2020-0 Univers atrophy atrophy 2-20 ity of 00:00: [place] 00 Medical Branch Obesity Obesity Disease Active 2020-0 Univers (BMI (BMI 1-28 ity of 30-39.9) 30-39.9) 00:00: [place] 00 Medical Branch Allergies, Adverse Reactions, Alerts Allergy Allergy Status Severity Reaction(s) Onset Inactive Treating Comm ents Source Name Type Date Date Clinician Statins- Propensi Active Unknown - 2019-0 Leg Uni vers Hmg-Coa ty to See comments 8-24 cramps ity of Reduct[place] adverse 00:00: [place] e reaction 00 Medical Inhibito s Branch rs STATINS- Drug Active Unknown-Cmnt 0 Un brendan HMG-COA Class 8-24 ity of REDUCTAS 00:00: [place] E 00 Medical INHIBITO Branch RS Acetamin Propensi Active Nausea 2019-0 Univer s ophen-Co ty to and/or 6-03 ity of deine adverse Vomiting 00:00: [place] reaction 00 Medical s Branch ACETAMIN DRUG Active N/V 2020-0 Univers OPHEN-CO 6-03 ity of DEINE 00:00: [place] 00 Medical Branch Sulfa Propensi Active Hives 2020-0 Univers (Sulfona ty to 1-22 ity of mide adverse 00:00: [place] Antibiot reaction 00 Medica l ics) s Branch MORPHINE DRUG Active N/V 2020-0 Univers INGREDI 1-22 ity of 00:00: [place] 00 Medical Branch SULFA Drug Active Hives 2020-0 Univers (SULFONA Class 1-22 ity of MIDE 00:00: [place] ANTIBIOT 00 Medical ICS) Branch Morphine Propensi Active Nausea 2020-0 Abdominal Uni vers ty to and/or 1-22 [place] ity of adverse Vomiting 00:00: [place] reaction 00 Medical s Branch Social History Social Habit Start Date Stop Date Quantity Comments Source History of tobacco Current smoker Un iversity of use [place] [facility] Exposure to 2022-08-03 2022-08-13 Not sure University of SARS-CoV-2 (event) 00:00:00 12:46:00 [place] [facility] Alcohol intake 2022-08-01 2022-08-01 Ex-drinker University of 00:00:00 00:00:00 (finding) [place] [facility] History SDOH 2022-08-01 2022-08-01 2 University o f Alcohol Frequency 00:00:00 00:00:00 [place] M edical Branch History SDOH 2022-08-01 2022-08-01 1 University o f Alcohol Std Drinks 00:00:00 00:00:00 [place] [facility] History SDOH 2022-08-01 2022-08-01 1 University o f Alcohol Binge 00:00:00 00:00:00 [place] Medic al Branch History SDOH Social 2022-08-01 2022-08-01 5 Unive rsity of Connections Phone 00:00:00 00:00:00 [facility] edical Branch History SDOH Social 2022-08-01 2022-08-01 3 Unive rsity of Connections Get 00:00:00 00:00:00 [place] Med ical Together Branch History SDOH Social 2022-08-01 2022-08-01 3 Unive rsity of Connections Quaker 00:00:00 00:00:00 [place] Medical Branch History SDOH Social 2022-08-01 2022-08-01 1 Unive rsity of Connections 00:00:00 00:00:00 [place] Medical Membership Branch History SDOH Social 2022-08-01 2022-08-01 3 Unive rsity of Connections 00:00:00 00:00:00 [place] Medical Meetings Branch History SDOH Social 2022-08-01 2022-08-01 3 Unive rsity of Connections Living 00:00:00 00:00:00 [place] Medical Branch History SDOH 2022-08-01 2022-08-01 0 University o f Physical Activity 00:00:00 00:00:00 [place] M edical DPW Branch History SDOH 2022-08-01 2022-08-01 0 University o f Physical Activity 00:00:00 00:00:00 [facility] edical MPS Branch History SDOH Stress 2022-08-01 2022-08-01 2 Unive rsity of 00:00:00 00:00:00 [place] [facility] History SDOH 2022-08-01 2022-08-01 3 University o f Financial 00:00:00 00:00:00 [place] [facility] History SDOH Food 2022-08-01 2022-08-01 1 Univers ity of Worry 00:00:00 00:00:00 [place] [facility] History SDOH Food 2022-08-01 2022-08-01 1 Univers ity of Scarcity 00:00:00 00:00:00 [place] [facility] History SDOH 2022-08-01 2022-08-01 2 University o f Transport Med 00:00:00 00:00:00 [place] Medic al Branch History SDNY 2022-08-01 2022-08-01 2 University o f Transport Non-Med 00:00:00 00:00:00 [place] M edical Branch History SDOH 2022-08-01 2022-08-01 2 University o f Housing Unable to 00:00:00 00:00:00 [place] M edical Pay Branch History SDNY 2022-08-01 2022-08-01 1 University o f Housing Places 00:00:00 00:00:00 [place] Medi romina Lived Branch History SDNY 2022-08-01 2022-08-01 2 University o f Housing Homeless 00:00:00 00:00:00 [facility] dical Last Year Branch Tobacco use and 2021-12-13 2021-12-13 Smokeless Universit y of exposure 00:00:00 00:00:00 tobacco non-user [facility] dical Branch Tobacco Comment 2021-12-13 2021-12-13 Hasnt smoked in Univ ersity of 00:00:00 00:00:00 10 years [facility] Sex [birth year] At [birth year] Universit y of 00:00:00 00:00:00 [facility] Smoking Status Start Date Stop Date Source Ex-smoker 2021-12-13 00:00:00 2021-12-13 00:00:00 Universi ty of [facility] Medications Ordered Filled Start Stop Current Ordering Indication Dosage Frequency Signature Comments Components Source Medication Medication Date Date Medication? Clinician (SIG) Name Name ketorolac 2022- No 15mg 15 mg, Unive rs (TORADOL) 4-11 04-11 Slow IV ity of injection 19:45: 18:58 Push, [place] 15 mg 00 :00 ONCE, 1 Medical dose, On Branch [facility] 08/13/22 at 1445, MELVIN iopamidol 2022- No [id number] 80mL 80 mL, Univers (ISOVUE 08-13 Intravenou ity o f 370-500 mL) 19:22: 19:22 s, ONCE, 1 [place] injection 00 :00 dose, On Medica l 80 mL e Branch 08/13/22 at 1430, Routine coenzyme Yes Univers Q10 100 mg 3-30 ity of softgel 11:23: [address] calcium Yes Univers carb/D3/mag 3-30 ity of nesium/zinc 11:23: [place] ([address] C-VIT D ORAL) coenzyme Yes Univers Q10 100 mg 3-30 ity of softgel 11:23: [address] calcium Yes Univers carb/D3/mag 3-30 ity of nesium/zinc 11:23: [place] ([address] C-VIT D ORAL) coenzyme Yes Univers Q10 100 mg 3-30 ity of softgel 11:23: [address] calcium Yes Univers carb/D3/mag 3-30 ity of nesium/zinc 11:23: [place] ([address] C-VIT D ORAL) coenzyme Yes Univers Q10 100 mg 3-30 ity of softgel 11:23: [address] calcium Yes Univers carb/D3/mag 3-30 ity of nesium/zinc 11:23: [place] ([address] C-VIT D ORAL) coenzyme Yes Univers Q10 100 mg 3-30 ity of softgel 11:23: [address] calcium Yes Univers carb/D3/mag 3-30 ity of nesium/zinc 11:23: [place] ([address] C-VIT D ORAL) coenzyme 2023-0 Yes Univers Q10 100 mg 3-30 ity of softgel 11:23: [address] calcium Yes Univers carb/D3/mag 3-30 ity of nesium/zinc 11:23: [place] ([address] C-VIT D ORAL) coenzyme 0 Yes Univers Q10 100 mg 3-30 ity of softgel 11:23: [address] calcium Yes Univers carb/D3/mag 3-30 ity of nesium/zinc 11:23: [place] ([address] C-VIT D ORAL) coenzyme 0 Yes Univers Q10 100 mg 3-30 ity of softgel 11:23: [address] calcium Yes Univers carb/D3/mag 3-30 ity of nesium/zinc 11:23: [place] ([address] C-VIT D ORAL) coenzyme Yes Univers Q10 100 mg 3-30 ity of softgel 11:23: [address] calcium Yes Univers carb/D3/mag 3-30 ity of nesium/zinc 11:23: [place] ([address] C-VIT D ORAL) coenzyme Yes Univers Q10 100 mg 3-30 ity of softgel 11:23: [address] calcium Yes Univers carb/D3/mag 3-30 ity of nesium/zinc 11:23: [place] ([address] C-VIT D ORAL) ascorbic 2022- No Take by Unive rs acid 07-24 mouth. ity of (VITAMIN C 10:29: 00:00 [place] ORAL) 42 :00 [facility] ascorbic 2022- No Take by Unive rs acid 07-24 mouth. ity of (VITAMIN C 10:29: 00:00 [place] ORAL) 42 :00 [facility] ascorbic 2022- No Take by Unive rs acid 07-24 mouth. ity of (VITAMIN C 10:29: 00:00 [place] ORAL) 42 :00 [facility] triamcinolo Yes [id number] 1{spray Use 1 Univers ne 55 mcg 3-22 } [place] in ity of nasal 00:00: each [place] inhaler 00 nostril in Medica l the Branch morning and 1 [place] in the evening. Get over the counter Nasacort or triamcinol one nasal spray if not covered azelastine 0 Yes [id number] 1{spray Use 1 Univers 137 mcg 3-22 } [place] in ity of (0.1 %) 00:00: each [place] nasal spray 00 nostril in La dical the Branch morning and 1 [place] in the evening. Get over the counter Astepro if not available. Use in each nostril as directed montelukast Yes [id number] 10mg Take 1 Univers (SINGULAIR) 3-22 tablet by ity of 10 mg 00:00: mouth [place] tablet 00 every Medical morning. Branch Decrease to 1/2 tab if any anxiety side effects, stop if still persist. mupirocin 2 Yes [id number] Apply U nivers % ointment 3-22 inside ity of 00:00: both nasal [place] 00 cavities Medical with q tip Branch 2x daily after using nasal sprays and can also apply small amount to ear(s) using pinky finger at bedtime. Continue regularly for 6 weeks, then as needed triamcinolo Yes [id number] 1{spray Use 1 Univers ne 55 mcg 3-22 } [place] in ity of nasal 00:00: each [place] inhaler 00 nostril in Medica l the Branch morning and 1 [place] in the evening. Get over the counter Nasacort or triamcinol one nasal spray if not covered azelastine 0 Yes [id number] 1{spray Use 1 Univers 137 mcg 3-22 } [place] in ity of (0.1 %) 00:00: each [place] nasal spray 00 nostril in La dical the Branch morning and 1 [place] in the evening. Get over the counter Astepro if not available. Use in each nostril as directed montelukast Yes [id number] 10mg Take 1 Univers (SINGULAIR) 3-22 tablet by ity of 10 mg 00:00: mouth [place] tablet 00 every Medical morning. Branch Decrease to 1/2 tab if any anxiety side effects, stop if still persist. mupirocin 2 Yes [id number] Apply U nivers % ointment 3-22 inside ity of 00:00: both nasal [place] 00 cavities Medical with q tip Branch 2x daily after using nasal sprays and can also apply small amount to ear(s) using pinky finger at bedtime. Continue regularly for 6 weeks, then as needed triamcinolo 0 Yes [id number] 1{spray Use 1 Univers ne 55 mcg 3-22 } [place] in ity of nasal 00:00: each [place] inhaler 00 nostril in Medica l the Branch morning and 1 [place] in the evening. Get over the counter Nasacort or triamcinol one nasal spray if not covered azelastine Yes [id number] 1{spray Use 1 Univers 137 mcg 3-22 } [place] in ity of (0.1 %) 00:00: each nasal spray 00 nostril in Me dical the Branch morning and 1 [place] in the evening. Get over the counter Astepro if not available. Use in each nostril as directed montelukast Yes [id number] 10mg Take 1 Univers (SINGULAIR) 3-22 tablet by ity of 10 mg 00:00: mouth [place] tablet 00 every Medical morning. Branch Decrease to 1/2 tab if any anxiety side effects, stop if still persist. mupirocin 2 Yes [id number] Apply U nivers % ointment 3-22 inside ity of 00:00: both nasal [place] 00 cavities Medical with q tip Branch 2x daily after using nasal sprays and can also apply small amount to ear(s) using pinky finger at bedtime. Continue regularly for 6 weeks, then as needed triamcinolo Yes [id number] 1{spray Use 1 Univers ne 55 mcg 3-22 } [place] in ity of nasal 00:00: each [place] inhaler 00 nostril in Medica l the Branch morning and 1 [place] in the evening. Get over the counter Nasacort or triamcinol one nasal spray if not covered azelastine 0 Yes [id number] 1{spray Use 1 Univers 137 mcg 3-22 } [place] in ity of (0.1 %) 00:00: each [place] nasal spray 00 nostril in Me dical the Branch morning and 1 [place] in the evening. Get over the counter Astepro if not available. Use in each nostril as directed montelukast 0 Yes [id number] 10mg Take 1 Univers (SINGULAIR) 3-22 tablet by ity of 10 mg 00:00: mouth [place] tablet 00 every Medical morning. Branch Decrease to 1/2 tab if any anxiety side effects, stop if still persist. mupirocin 2 0 Yes [id number] Apply U nivers % ointment 3-22 inside ity of 00:00: both nasal [place] 00 cavities Medical with q tip Branch 2x daily after using nasal sprays and can also apply small amount to ear(s) using pinky finger at bedtime. Continue regularly for 6 weeks, then as needed triamcinolo 2022-0 Yes [id number] 1{spray Use 1 Univers ne 55 mcg 3-22 } [place] in ity of nasal 00:00: each [place] inhaler 00 nostril in Medica l the Branch morning and 1 [place] in the evening. Get over the counter Nasacort or triamcinol one nasal spray if not covered azelastine 0 Yes [id number] 1{spray Use 1 Univers 137 mcg 3-22 } [place] in ity of (0.1 %) 00:00: each [place] nasal spray 00 nostril in La dical the Branch morning and 1 [place] in the evening. Get over the counter Astepro if not available. Use in each nostril as directed montelukast 0 Yes [id number] 10mg Take 1 Univers (SINGULAIR) 3-22 tablet by ity of 10 mg 00:00: mouth [place] tablet 00 every Medical morning. Branch Decrease to 1/2 tab if any anxiety side effects, stop if still persist. mupirocin 2 0 Yes [id number] Apply U nivers % ointment 3-22 inside ity of 00:00: both nasal [place] 00 cavities Medical with q tip Branch 2x daily after using nasal sprays and can also apply small amount to ear(s) using pinky finger at bedtime. Continue regularly for 6 weeks, then as needed triamcinolo 2022-0 Yes [id number] 1{spray Use 1 Univers ne 55 mcg 3-22 } [place] in ity of nasal 00:00: each [place] inhaler 00 nostril in Medica l the Branch morning and 1 [place] in the evening. Get over the counter Nasacort or triamcinol one nasal spray if not covered azelastine Yes [id number] 1{spray Use 1 Univers 137 mcg 3-22 } [place] in ity of (0.1 %) 00:00: each [place] nasal spray 00 nostril in [facility] the Branch morning and 1 [place] in the evening. Get over the counter Astepro if not available. Use in each nostril as directed montelukast Yes [id number] 10mg Take 1 Univers (SINGULAIR) 3-22 tablet by ity of 10 mg 00:00: mouth [place] tablet 00 every Medical morning. Branch Decrease to 1/2 tab if any anxiety side effects, stop if still persist. mupirocin 2 Yes [id number] Apply U nivers % ointment 3-22 inside ity of 00:00: both nasal [place] 00 cavities Medical with q tip Branch 2x daily after using nasal sprays and can also apply small amount to ear(s) using pinky finger at bedtime. Continue regularly for 6 weeks, then as needed triamcinolo Yes [id number] 1{spray Use 1 Univers ne 55 mcg 3-22 } [place] in ity of nasal 00:00: each [place] inhal[facility] and 1 [place] in the evening. Get over the counter Nasacort or triamcinol one nasal spray if not covered azelastine Yes [id number] 1{spray Use 1 Univers 137 mcg 3-22 } [place] in ity of (0.1 %) 00:00: each [place] nasal spray 00 nostril in [facility] the Branch morning and 1 [place] in the evening. Get over the counter Astepro if not available. Use in each nostril as directed montelukast Yes [id number] 10mg Take 1 Univers (SINGULAIR) 3-22 tablet by ity of 10 mg 00:00: mouth [place] tablet 00 every Medical morning. Branch Decrease to 1/2 tab if any anxiety side effects, stop if still persist. mupirocin 2 Yes [id number] Apply U nivers % ointment 3-22 inside ity of 00:00: both nasal [place] 00 cavities Medical with q tip Branch 2x daily after using nasal sprays and can also apply small amount to ear(s) using pinky finger at bedtime. Continue regularly for 6 weeks, then as needed triamcinolo 2022-0 Yes [id number] 1{spray Use 1 Univers ne 55 mcg 3-22 } [place] in ity of nasal 00:00: each inhaler 00 nostril in Medica l the Branch morning and 1 [place] in the evening. Get over the counter Nasacort or triamcinol one nasal spray if not covered azelastine 0 Yes [id number] 1{spray Use 1 Univers 137 mcg 3-22 } [place] in ity of (0.1 %) 00:00: each nasal spray 00 nostril in [place] dical the Branch morning and 1 [place] in the evening. Get over the counter Astepro if not available. Use in each nostril as directed montelukast Yes [id number] 10mg Take 1 Univers (SINGULAIR) 3-22 tablet by ity of 10 mg 00:00: mouth [place] tablet 00 every Medical morning. Branch Decrease to 1/2 tab if any anxiety side effects, stop if still persist. mupirocin 2 Yes [id number] Apply U nivers % ointment 3-22 inside ity of 00:00: both nasal [place] 00 cavities Medical with q tip Branch 2x daily after using nasal sprays and can also apply small amount to ear(s) using pinky finger at bedtime. Continue regularly for 6 weeks, then as needed triamcinolo 0 Yes [id number] 1{spray Use 1 Univers ne 55 mcg 3-22 } [place] in ity of nasal 00:00: each inhaler 00 nostril in Medica l the Branch morning and 1 [place] in the evening. Get over the counter Nasacort or triamcinol one nasal spray if not covered azelastine 0 Yes [id number] 1{spray Use 1 Univers 137 mcg 3-22 } [place] in ity of (0.1 %) 00:00: each [place] nasal spray 00 nostril in Me dical the Branch morning and 1 [place] in the evening. Get over the counter Astepro if not available. Use in each nostril as directed montelukast Yes [id number] 10mg Take 1 Univers (SINGULAIR) 3-22 tablet by ity of 10 mg 00:00: mouth [place] tablet 00 every Medical morning. Branch Decrease to 1/2 tab if any anxiety side effects, stop if still persist. mupirocin 2 Yes [id number] Apply U nivers % ointment 3-22 inside ity of 00:00: both nasal [place] 00 cavities Medical with q tip Branch 2x daily after using nasal sprays and can also apply small amount to ear(s) using pinky finger at bedtime. Continue regularly for 6 weeks, then as needed triamcinolo Yes [id number] 1{spray Use 1 Univers ne 55 mcg 3-22 } [place] in ity of nasal 00:00: each [place] inhaler 00 nostril in Medica l the Branch morning and 1 [place] in the evening. Get over the counter Nasacort or triamcinol one nasal spray if not covered azelastine 0 Yes [id number] 1{spray Use 1 Univers 137 mcg 3-22 } [place] in ity of (0.1 %) 00:00: each [place] nasal spray 00 nostril in Me dical the Branch morning and 1 [place] in the evening. Get over the counter Astepro if not available. Use in each nostril as directed montelukast Yes [id number] 10mg Take 1 Univers (SINGULAIR) 3-22 tablet by ity of 10 mg 00:00: mouth [place] tablet 00 every Medical morning. Branch Decrease to 1/2 tab if any anxiety side effects, stop if still persist. mupirocin 2 Yes [id number] Apply U nivers % ointment 3-22 inside ity of 00:00: both nasal [place] 00 cavities Medical with q tip Branch 2x daily after using nasal sprays and can also apply small amount to ear(s) using pinky finger at bedtime. Continue regularly for 6 weeks, then as needed triamcinolo 2022-0 Yes [id number] 1{spray Use 1 Univers ne 55 mcg 3-22 } [place] in ity of nasal 00:00: each [place] inhaler 00 nostril in Medica l the Branch morning and 1 [place] in the evening. Get over the counter Nasacort or triamcinol one nasal spray if not covered azelastine Yes [id number] 1{spray Use 1 Univers 137 mcg 3-22 } [place] [place] ity of (0.1 %) 00:00: each [place] nasal spray 00 nostril in Me dical the Branch morning and 1 [place] in the evening. Get over the counter Astepro if not available. Use in each nostril as directed montelukast Yes [id number] 10mg Take 1 [facility] (SINGULAIR) 3-22 tablet by ity of 10 mg 00:00: mouth [place] tablet 00 every Medical morning. Branch Decrease to 1/2 tab if any anxiety side effects, stop if still persist. mupirocin 2 Yes [id number] Apply U nivers % ointment 3-22 inside ity of 00:00: both nasal [place] 00 cavities Medical with q tip Branch 2x daily after using nasal sprays and can also apply small amount to ear(s) using pinky finger at bedtime. Continue regularly for 6 weeks, then as needed triamcinolo Yes [id number] 1{spray Use 1 [facility] ne 55 mcg 3-22 } [place] in ity of nasal 00:00: each [place] inhaler 00 nostril in Medica l the Branch morning and 1 [place] in the evening. Get over the counter Nasacort or triamcinol one nasal spray if not covered azelastine Yes [id number] 1{spray Use 1 [facility] 137 mcg 3-22 } [place] in ity of (0.1 %) 00:00: each [place] 00 nostril in [place] the [place] morning and 1 [place] in the evening. Get over the counter Astepro if not available. Use in each nostril as directed montelukast Yes [id number] 10mg Take 1 [facility] (SINGULAIR) 3-22 tablet by ity of 10 mg 00:00: mouth [place] tablet 00 every Medical morning. Branch Decrease to 1/2 tab if any anxiety side effects, stop if still persist. mupirocin 2 Yes [id number] Apply [facility] n[facility] % ointment 3-22 inside ity of 00:00: both nasal [place] 00 cavities Medical with q tip Branch 2x daily after using nasal sprays and can also apply small amount to ear(s) using pinky finger at bedtime. Continue regularly for 6 weeks, then as needed icosapent 2023-0 Yes [id number] 2g Take 2 [facility] n[facility] ethyL 3-08 capsules ity of (VASCEPA) 1 00:00: by mouth [place] gram 00 in the Medical capsule morning Branch and 2 capsules in the evening. lisinopriL 2023-0 Yes [id number] 20mg Take 1 [facility] nivers 20 mg 3-08 tablet by ity of tablet 00:00: mouth in [place] 00 the Medical morning. Branch metoprolol 2023-0 Yes [id number] 100mg Take 1 [facility] tartrate 3-08 tablet by ity of 100 mg 00:00: mouth in [place] tablet 00 the Medical morning Branch and 1 tablet in the evening. icosapent 2023-0 Yes [id number] 2g Take 2 [facility] n[facility] ethyL 3-08 capsules ity of (VASCEPA) 1 00:00: by mouth [place] gram 00 in the Medical capsule morning Branch and 2 capsules in the evening. lisinopriL 2023-0 Yes [id number] 20mg Take 1 [facility] n[facility] 20 mg 3-08 tablet by ity of tablet 00:00: mouth in [place] 00 the Medical morning. Branch metoprolol 2023-0 Yes [id number] 100mg Take 1 [facility] tartrate 3-08 tablet by ity of 100 mg 00:00: mouth in [place] tablet 00 the Medical morning Branch and 1 tablet in the evening. lisinopriL 2023-0 Yes [id number] 20mg Take 1 [facility] 20 mg 3-08 tablet by ity of tablet 00:00: mouth in [place] 00 the Medical morning. Branch metoprolol 2023-0 Yes [id number] 100mg Take 1 [facility] tartrate 3-08 tablet by ity of 100 mg 00:00: mouth in [place] tablet 00 the Medical morning Branch and 1 tablet in the evening. lisinopriL 2023-0 Yes [id number] 20mg Take 1 [facility] 20 mg 3-08 tablet by ity of tablet 00:00: mouth in [place] 00 the Medical morning. Branch metoprolol 2023-0 Yes [id number] 100mg Take 1 [facility] tartrate 3-08 tablet by ity of 100 mg 00:00: mouth in [place] tablet 00 the Medical morning Branch and 1 tablet in the evening. lisinopriL 2023-0 Yes [id number] 20mg Take 1 [facility] 20 mg 3-08 tablet by ity of tablet 00:00: mouth in [place] 00 the Medical morning. Branch metoprolol 2023-0 Yes [id number] 100mg Take 1 [facility] tartrate 3-08 tablet by ity of 100 mg 00:00: mouth in [place] tablet 00 the Medical morning Branch and 1 tablet in the evening. lisinopriL 2023-0 Yes [id number] 20mg Take 1 [facility] 20 mg 3-08 tablet by ity of tablet 00:00: mouth in [place] 00 the Medical morning. Branch metoprolol 2023-0 Yes [id number] 100mg Take 1 [facility] tartrate 3-08 tablet by ity of 100 mg 00:00: mouth in [place] tablet 00 the Medical morning Branch and 1 tablet in the evening. lisinopriL 2023-0 Yes [id number] 20mg Take 1 [facility] 20 mg 3-08 tablet by ity of tablet 00:00: mouth in [place] 00 the Medical morning. Branch metoprolol 2023-0 Yes [id number] 100mg Take 1 [facility] tartrate 3-08 tablet by ity of 100 mg 00:00: mouth in [place] tablet 00 the Medical morning Branch and 1 tablet in the evening. lisinopriL 2023-0 Yes [id number] 20mg Take 1 [facility] 20 mg 3-08 tablet by ity of tablet 00:00: mouth in [place] 00 the Medical morning. Branch metoprolol 2023-0 Yes [id number] 100mg Take 1 [facility] tartrate 3-08 tablet by ity of 100 mg 00:00: mouth in [place] tablet 00 the Medical morning Branch and 1 tablet in the evening. lisinopriL 2023-0 Yes [id number] 20mg Take 1 [facility] 20 mg 3-08 tablet by ity of tablet 00:00: mouth in [place] 00 the Medical morning. Branch metoprolol 2023-0 Yes [id number] 100mg Take 1 [facility] tartrate 3-08 tablet by ity of 100 mg 00:00: mouth in [place] tablet 00 the Medical morning Branch and 1 tablet in the evening. lisinopriL 2023-0 Yes [id number] 20mg Take 1 [facility] 20 mg 3-08 tablet by ity of tablet 00:00: mouth in [place] 00 the Medical morning. Branch metoprolol 2023-0 Yes [id number] 100mg Take 1 [facility] tartrate 3-08 tablet by ity of 100 mg 00:00: mouth in [place] tablet 00 the Medical morning Branch and 1 tablet in the evening. lisinopriL 2023-0 Yes [id number] 20mg Take 1 [facility] 20 mg 3-08 tablet by ity of tablet 00:00: mouth in [place] 00 the Medical morning. Branch metoprolol 2023-0 Yes [id number] 100mg Take 1 [facility] tartrate 3-08 tablet by ity of 100 mg 00:00: mouth in [place] tablet 00 the Medical morning Branch and 1 tablet in the evening. lisinopriL 2023-0 Yes [id number] 20mg Take 1 [facility] 20 mg 3-08 tablet by ity of tablet 00:00: mouth in [place] 00 the Medical morning. Branch metoprolol 2023-0 Yes [id number] 100mg Take 1 [facility] tartrate 3-08 tablet by ity of 100 mg 00:00: mouth in [place] tablet 00 the Medical morning Branch and 1 tablet in the evening. lisinopriL 2023-0 Yes [id number] 20mg Take 1 [facility] 20 mg 3-08 tablet by ity of tablet 00:00: mouth in [place] 00 the Medical morning. Branch metoprolol 2023-0 Yes [id number] 100mg Take 1 [facility] tartrate 3-08 tablet by ity of 100 mg 00:00: mouth in [place] tablet 00 the Medical morning Branch and 1 tablet in the evening. lisinopriL 2023-0 Yes [id number] 20mg Take 1 [facility] 20 mg 3-08 tablet by ity of tablet 00:00: mouth in [place] 00 the Medical morning. Branch metoprolol 2023-0 Yes [id number] 100mg Take 1 [facility] tartrate 3-08 tablet by ity of 100 mg 00:00: mouth in [place] tablet 00 the Medical morning Branch and 1 tablet in the evening. lisinopriL 2023-0 Yes [id number] 20mg Take 1 [facility] 20 mg 3-08 tablet by ity of tablet 00:00: mouth in [place] 00 the Medical morning. Branch metoprolol 2023-0 Yes [id number] 100mg Take 1 [facility] tartrate 3-08 tablet by ity of 100 mg 00:00: mouth in [place] tablet 00 the Medical morning Branch and 1 tablet in the evening. icosapent 2023-0 2022- No [id number] 2g Take 2 [facility] ethyL 3-08 03-22 capsules ity of (VASCEPA) 1 00:00: 00:00 by mouth [place] gram 00 :00 in the Medical capsule morning Branch and 2 capsules in the evening. icosapent 2023-0 3- No [id number] 2g Take 2 [facility] ethyL 3-08 03-22 capsules ity of (VASCEPA) 1 00:00: 00:00 by mouth [place] gram 00 :00 in the Medical capsule morning Branch and 2 capsules in the evening. icosapent 2023-0 2022- No [id number] 2g Take 2 [facility] ethyL 3-08 03-22 capsules ity of (VASCEPA) 1 00:00: 00:00 by mouth [place] gram 00 :00 in the Medical capsule morning Branch and 2 capsules in the evening. rizatriptan 2023-0 Yes [id number] 10mg Take 1 [facility] (MAXALT) 10 2-13 tablet by it[place] of mg tablet 00:00: mouth [place] 00 needed for Medical Migraine. Branch May repeat in 2 hours if needed rizatriptan 2023-0 Yes [id number] 10mg Take 1 [facility] (MAXALT) 10 2-13 tablet by ity of mg tablet 00:00: mouth [place] 00 needed for Medical Migraine. Branch May repeat in 2 hours if needed rizatriptan 2023-0 Yes [id number] 10mg Take 1 [facility] (MAXALT) 10 2-13 tablet by ity of mg tablet 00:00: mouth [place] 00 needed for Medical Migraine. Branch May repeat in 2 hours if needed rizatriptan 2023-0 Yes [id number] 10mg Take 1 [facility] (MAXALT) 10 2-13 tablet by ity of mg tablet 00:00: mouth [place] 00 needed for Medical Migraine. Branch May repeat in 2 hours if needed rizatriptan 2023-0 Yes [id number] 10mg Take 1 [facility] (MAXALT) 10 2-13 tablet by ity of mg tablet 00:00: mouth [place] 00 needed for Medical Migraine. Branch May repeat in 2 hours if needed rizatriptan 2023-0 Yes [id number] 10mg Take 1 [facility] (MAXALT) 10 2-13 tablet by ity of mg tablet 00:00: mouth [place] 00 needed for Medical Migraine. Branch May repeat in 2 hours if needed rizatriptan 3-0 Yes [id number] 10mg Take 1 [facility] (MAXALT) 10 2-13 tablet by ity of mg tablet 00:00: mouth [place] 00 needed for Medical Migraine. Branch May repeat in 2 hours if needed rizatriptan 2022-0 Yes [id number] 10mg Take 1 [facility] (MAXALT) 10 2-13 tablet by ity of mg tablet 00:00: mouth [place] 00 needed for Medical Migraine. Branch May repeat in 2 hours if needed rizatriptan 2022-0 Yes [id number] 10mg Take 1 [facility] (MAXALT) 10 2-13 tablet by ity of mg tablet 00:00: mouth [place] 00 needed for Medical Migraine. Branch May repeat in 2 hours if needed rizatriptan 2022-0 Yes [id number] 10mg Take 1 [facility] (MAXALT) 10 2-13 tablet by ity of mg tablet 00:00: mouth [place] 00 needed for Medical Migraine. Branch May repeat in 2 hours if needed rizatriptan 2022-0 Yes [id number] 10mg Take 1 [facility] (MAXALT) 10 2-13 tablet by ity of mg tablet 00:00: mouth [place] 00 needed for Medical Migraine. Branch May repeat in 2 hours if needed rizatriptan 2022-0 Yes [id number] 10mg Take 1 [facility] (MAXALT) 10 2-13 tablet by ity of mg tablet 00:00: mouth [place] 00 needed for Medical Migraine. Branch May repeat in 2 hours if needed rizatriptan 3-0 Yes [id number] 10mg Take 1 [facility] (MAXALT) 10 2-13 tablet by ity of mg tablet 00:00: mouth [place] 00 needed for Medical Migraine. Branch May repeat in 2 hours if needed rizatriptan 3-0 Yes [id number] 10mg Take 1 [facility] (MAXALT) 10 2-13 tablet by ity of mg tablet 00:00: mouth [place] 00 needed for Medical Migraine. Branch May repeat in 2 hours if needed rizatriptan 2023-0 Yes [id number] 10mg Take 1 [facility] (MAXALT) 10 2-13 tablet by ity of mg tablet 00:00: mouth [place] 00 needed for Medical Migraine. Branch May repeat in 2 hours if needed rizatriptan 2023-0 Yes [id number] 10mg Take 1 [facility] (MAXALT) 10 2-13 tablet by ity of mg tablet 00:00: mouth [place] 00 needed for Medical Migraine. Branch May repeat in 2 hours if needed rizatriptan 3-0 Yes [id number] 10mg Take 1 [facility] (MAXALT) 10 2-13 tablet by ity of mg tablet 00:00: mouth [place] 00 needed for Medical Migraine. Branch May repeat in 2 hours if needed rizatriptan 3-0 Yes [id number] 10mg Take 1 [facility] (MAXALT) 10 2-13 tablet by ity of mg tablet 00:00: mouth [place] 00 needed for Medical Migraine. Branch May repeat in 2 hours if needed rizatriptan 3-0 Yes [id number] 10mg Take 1 [facility] (MAXALT) 10 2-13 tablet by ity of mg tablet 00:00: mouth [place] 00 needed for Medical Migraine. Branch May repeat in 2 hours if needed rizatriptan 3-0 Yes [id number] 10mg Take 1 [facility] (MAXALT) 10 2-13 tablet by ity of mg tablet 00:00: mouth [place] 00 needed for Medical Migraine. Branch May repeat in 2 hours if needed rizatriptan 2023-0 Yes [id number] 10mg Take 1 [facility] (MAXALT) 10 2-13 tablet by ity of mg tablet 00:00: mouth [place] 00 needed for Medical Migraine. Branch May repeat in 2 hours if needed rizatriptan 2023-0 Yes [id number] 10mg Take 1 [facility] (MAXALT) 10 2-13 tablet by ity of mg tablet 00:00: mouth [place] 00 needed for Medical Migraine. Branch May repeat in 2 hours if needed rizatriptan 2023-0 Yes [id number] 10mg Take 1 [facility] (MAXALT) 10 2-13 tablet by ity of mg tablet 00:00: mouth [place] 00 needed for Medical Migraine. Branch May repeat in 2 hours if needed methylPREDN 2022-0 2022- Yes [id number] Take by [facility] ISolone 4 2-13 -20 mouth ity of mg tablets 00:00: 05:59 SEE-INSTRU [place] 00 :00 CTIONS for Medical 6 days. Branch follow package directions methylPREDN 2022-0 2022- Yes [id number] Take by [facility] ISolone 4 2-13 -20 mouth ity of mg tablets 00:00: 05:59 SEE-INSTRU [place] 00 :00 CTIONS for Medical 6 days. Branch follow package directions methylPREDN 2022-0 2022- Yes [id number] Take by [facility] ISolone 4 213 -20 mouth ity of mg tablets 00:00: 05:59 SEE-INSTRU [place] 00 :00 CTIONS for Medical 6 days. Branch follow package directions methylPREDN 2022-0 2022- Yes [id number] [facility] mouth ity of mg tablets 00:00: 05:59 SEE-INSTRU [place] 00 :00 CTIONS for Medical 6 days. Branch follow package directions methylPREDN 2022-0 2022- Yes [id number] [facility] mouth ity of mg tablets 00:00: 05:59 SEE-INSTRU [place] 00 :00 CTIONS for Medical 6 days. Branch follow package directions pravastatin 2022-0 Yes 10mg Take 1 [facility] ers 10 mg 2-06 tablet by ity of tablet 00:00: mouth at [place] [address] bedtime. Medical Branch pravastatin 3-0 Yes 10mg Take 1 [facility] ers 10 mg 2-06 tablet by ity of tablet 00:00: mouth at [place] [address] bedtime. Medical Branch pravastatin 2023-0 Yes 10mg Take 1 [facility] ers 10 mg 2-06 tablet by ity of tablet 00:00: mouth at [place] [address] bedtime. Medical Branch pravastatin 2023-0 Yes 10mg Take 1 [facility] ers 10 mg 2-06 tablet by ity of tablet 00:00: mouth at [place] [address] bedtime. Medical Branch pravastatin 2023-0 Yes 10mg Take 1 [facility] ers 10 mg 2-06 tablet by ity of tablet 00:00: mouth at [place] [address] bedtime. Medical Branch pravastatin 2023-0 Yes 10mg Take 1 [facility] ers 10 mg 2-06 tablet by ity of tablet 00:00: mouth at [place] [address] bedtime. Medical Branch pravastatin 2023-0 Yes 10mg Take 1 [facility] ers 10 mg 2-06 tablet by ity of tablet 00:00: mouth at [place] [address] bedtime. Medical Branch pravastatin 2023-0 Yes 10mg Take 1 [facility] ers 10 mg 2-06 tablet by ity of tablet 00:00: mouth at [place] [address] bedtime. Medical Branch pravastatin 2023-0 Yes 10mg Take 1 [facility] ers 10 mg 2-06 tablet by ity of tablet 00:00: mouth at [place] [address] bedtime. Medical Branch pravastatin 2023-0 Yes 10mg Take 1 [facility] ers 10 mg 2-06 tablet by ity of tablet 00:00: mouth at [place] [address] bedtime. Medical Branch pravastatin 2023-0 Yes 10mg Take 1 [facility] ers 10 mg 2-06 tablet by ity of tablet 00:00: mouth at [place] [address] bedtime. Medical Branch pravastatin 2023-0 Yes 10mg Take 1 [facility] ers 10 mg 2-06 tablet by ity of tablet 00:00: mouth at [place] [address] bedtime. Medical Branch pravastatin 2023-0 Yes 10mg Take 1 [facility] ers 10 mg 2-06 tablet by ity of tablet 00:00: mouth at [place] [address] bedtime. Medical Branch pravastatin 2023-0 Yes 10mg Take 1 [facility] ers 10 mg 2-06 tablet by ity of tablet 00:00: mouth at [place] [address] bedtime. Medical Branch pravastatin 2023-0 Yes 10mg Take 1 [facility] ers 10 mg 2-06 tablet by ity of tablet 00:00: mouth at [place] [address] bedtime. Medical Branch pravastatin 2023-0 Yes 10mg Take 1 [facility] ers 10 mg 2-06 tablet by ity of tablet 00:00: mouth at [place] [address] bedtime. Medical Branch pravastatin 2023-0 Yes 10mg Take 1 [facility] ers 10 mg 2-06 tablet by ity of tablet 00:00: mouth at [place] [address] bedtime. Medical Branch pravastatin 2023-0 Yes 10mg Take 1 [facility] ers 10 mg 2-06 tablet by ity of tablet 00:00: mouth at [place] [address] bedtime. Medical Branch pravastatin 2023-0 Yes 10mg Take 1 [facility] ers 10 mg 2-06 tablet by ity of tablet 00:00: mouth at [place] [address] bedtime. Medical Branch pravastatin 2023-0 Yes 10mg Take 1 [facility] ers 10 mg 2-06 tablet by ity of tablet 00:00: mouth at [place] [address] bedtime. Medical Branch pravastatin 2023-0 Yes 10mg Take 1 [facility] ers 10 mg 2-06 tablet by ity of tablet 00:00: mouth at [place] [address] bedtime. Medical Branch pravastatin 2023-0 Yes 10mg Take 1 [facility] ers 10 mg 2-06 tablet by ity of tablet 00:00: mouth at [place] [address] bedtime. Medical Branch pravastatin 2023-0 Yes 10mg Take 1 [facility] ers 10 mg 2-06 tablet by ity of tablet 00:00: mouth at [place] [address] bedtime. Medical Branch pravastatin 2023-0 Yes 10mg Take 1 [facility] ers 10 mg 2-06 tablet by ity of tablet 00:00: mouth at [place] [address] bedtime. Medical Branch levocetiriz 3-0 Yes Univer s ine 5 mg 1-30 ity of tablet 00:00: [place] 00 Medical Branch levocetiriz 2023-0 Yes Univer s ine 5 mg 1-30 ity of tablet 00:00: [place] 00 Medical Branch levocetiriz 2023-0 Yes Univer s ine 5 mg 1-30 ity of tablet 00:00: [place] 00 Medical Branch levocetiriz 2023-0 Yes Univer s ine 5 mg 1-30 ity of tablet 00:00: [place] 00 Medical Branch levocetiriz 2023-0 Yes Univer s ine 5 mg 1-30 ity of tablet 00:00: [place] 00 Medical Branch levocetiriz 2023-0 Yes Univer s ine 5 mg 1-30 ity of tablet 00:00: [place] 00 Medical Branch levocetiriz 2023-0 Yes Univer s ine 5 mg 1-30 ity of tablet 00:00: [place] 00 Medical Branch levocetiriz 2023-0 Yes Univer s ine 5 mg 1-30 ity of tablet 00:00: [place] 00 Medical Branch levocetiriz 2023-0 Yes Univer s ine 5 mg 1-30 ity of tablet 00:00: [place] 00 Medical Branch levocetiriz 2023-0 Yes Univer s ine 5 mg 1-30 ity of tablet 00:00: [place] 00 Medical Branch RESVERATROL 2021-05- No Take by Un brendan -QUERCETIN 0-31 10-31 mouth. ity of ORAL 10:04: 00:00 [place] 10 :00 Medical Branch RESVERATROL 2021-05- No Take by Un brendan -QUERCETIN 0-31 10-31 mouth. ity of ORAL 10:04: 00:00 [place] 10 :00 Medical Branch montelukast 2021-05 Yes [id number] 10mg Take 1 [facility] 10 mg 0-31 tablet by ity of tablet 00:00: mouth in [place] the Medical morning. Branch levocetiriz 2021-05 Yes [id number] 5mg Take 1 [facility] ine 5 mg 0-31 tablet by ity of tablet 00:00: mouth [place] 00 every Medical evening. Branch azelastine 2021-05 Yes [id number] 1{spray Use 1 [facility] 137 mcg 0-31 } [place] in ity of (0.1 %) 00:00: each [place] nasal spray 00 nostril in [facility] morning and 1 [place] in the evening. Use in each nostril as directed montelukast 2021-05 Yes [id number] 10mg Take 1 [facility] 10 mg 0-31 tablet by ity of tablet 00:00: mouth in [place] the Medical morning. Branch levocetiriz 2021-05 Yes [id number] 5mg Take 1 [facility] ine 5 mg 0-31 tablet by ity of tablet 00:00: mouth [place] 00 every Medical evening. Branch azelastine 2021-05 Yes [id number] 1{spray Use 1 [facility] 137 mcg 0-31 } [place] in ity of (0.1 %) 00:00: each [place] nasal spray 00 nostril in [facility] morning and 1 [place] in the evening. Use in each nostril as directed montelukast 2021-05 Yes [id number] 10mg Take 1 [facility] 10 mg 0-31 tablet by ity of tablet 00:00: mouth in [place] the Medical morning. Branch levocetiriz 2021-05 Yes [id number] 5mg Take 1 [facility] ine 5 mg 0-31 tablet by ity of tablet 00:00: mouth [place] 00 every Medical evening. Branch azelastine 2021-05 Yes [id number] 1{spray Use 1 [facility] 137 mcg 0-31 } [place] in ity of (0.1 %) 00:00: each [place] nasal spray 00 nostril in [facility] morning and 1 [place] in the evening. Use in each nostril as directed montelukast 2021-05 Yes [id number] 10mg Take 1 [facility] 10 mg 0-31 tablet by ity of tablet 00:00: mouth in [place] 00 the Medical morning. [place] levocetiriz 2021-05 Yes [id number] 5mg Take 1 [facility] ine 5 mg 0-31 tablet by ity of tablet 00:00: mouth [place] 00 every Medical evening. [place] azelastine 2021-05 Yes [id number] 1{spray Use 1 [facility] 137 mcg 0-31 } [place] in ity of (0.1 %) 00:00: each [place] nasal spray 00 nostril in [facility] morning and 1 [place] in the evening. Use in each nostril as directed montelukast 2021-05 Yes [id number] 10mg Take 1 [facility] 10 mg 0-31 tablet by ity of tablet 00:00: mouth in [place] 00 the Medical morning. [place] levocetiriz 2021-05 Yes [id number] 5mg Take 1 [facility] ine 5 mg 0-31 tablet by ity of tablet 00:00: mouth [place] 00 every Medical evening. [place] azelastine 2021-05 Yes [id number] 1{spray Use 1 [facility] 137 mcg 0-31 } [place] in ity of (0.1 %) 00:00: each [place] nasal spray 00 nostril in [facility] morning and 1 [place] in the evening. Use in each nostril as directed montelukast 2021-05 Yes [id number] 10mg Take 1 [facility] 10 mg 0-31 tablet by ity of tablet 00:00: mouth in [place] 00 the Medical morning. [place] levocetiriz 2021-05 Yes [id number] 5mg Take 1 [facility] ine 5 mg 0-31 tablet by ity of tablet 00:00: mouth [place] 00 every Medical evening. [place] montelukast 2021-05 Yes [id number] 10mg Take 1 [facility] 10 mg 0-31 tablet by ity of tablet 00:00: mouth in [place] 00 the Medical morning. [place] levocetiriz 2021-05 Yes [id number] 5mg Take 1 [facility] ine 5 mg 0-31 tablet by ity of tablet 00:00: mouth [place] 00 every Medical evening. [place] montelukast 2021-05 Yes [id number] 10mg Take 1 [facility] 10 mg 0-31 tablet by ity of tablet 00:00: mouth in [place] 00 the Medical morning. Branch levocetiriz 2021-05 Yes [id number] 5mg Take 1 [facility] ine 5 mg 0-31 tablet by ity of tablet 00:00: mouth [place] 00 every Medical evening. [place] montelukast 2021-05 Yes [id number] 10mg Take 1 [facility] 10 mg 0-31 tablet by ity of tablet 00:00: mouth in [place] 00 the Medical morning. Branch levocetiriz 2021-05 Yes [id number] 5mg Take 1 [facility] ine 5 mg 0-31 tablet by ity of tablet 00:00: mouth [place] 00 every Medical evening. [place] montelukast 2021-05 Yes [id number] 10mg Take 1 [facility] 10 mg 0-31 tablet by ity of tablet 00:00: mouth in [place] 00 the Medical morning. [place] levocetiriz 2021-05 Yes [id number] 5mg Take 1 [facility] ine 5 mg 0-31 tablet by ity of tablet 00:00: mouth [place] 00 every Medical evening. [place] montelukast 2021-05 Yes [id number] 10mg Take 1 [facility] 10 mg 0-31 tablet by ity of tablet 00:00: mouth in [place] 00 the Medical morning. [place] levocetiriz 2021-05 Yes [id number] 5mg Take 1 [facility] ine 5 mg 0-31 tablet by ity of tablet 00:00: mouth [place] 00 every Medical evening. [place] montelukast 2021-05 Yes [id number] 10mg Take 1 [facility] 10 mg 0-31 tablet by ity of tablet 00:00: mouth in [place] 00 the Medical morning. [place] levocetiriz 2021-05 Yes [id number] 5mg Take 1 [facility] ine 5 mg 0-31 tablet by ity of tablet 00:00: mouth [place] 00 every Medical evening. [place] montelukast 2021-05 Yes [id number] 10mg Take 1 [facility] 10 mg 0-31 tablet by ity of tablet 00:00: mouth in [place] 00 the Medical morning. Branch levocetiriz 2021-05 Yes [id number] 5mg Take 1 [facility] ine 5 mg 0-31 tablet by ity of tablet 00:00: mouth [place] 00 every Medical evening. [place] montelukast 2021-05 Yes [id number] 10mg Take 1 [facility] 10 mg 0-31 tablet by ity of tablet 00:00: mouth in [place] 00 the Medical morning. [place] levocetiriz 2021-05 Yes [id number] 5mg Take 1 [facility] ine 5 mg 0-31 tablet by ity of tablet 00:00: mouth [place] 00 every Medical evening. [place] montelukast 2021-05 Yes [id number] 10mg Take 1 [facility] 10 mg 0-31 tablet by ity of tablet 00:00: mouth in [place] 00 the Medical morning. [place] levocetiriz 2021-05 Yes [id number] 5mg Take 1 [facility] ine 5 mg 0-31 tablet by ity of tablet 00:00: mouth [place] 00 every Medical evening. [place] montelukast 2021-05 Yes [id number] 10mg Take 1 [facility] 10 mg 0-31 tablet by ity of tablet 00:00: mouth in [place] 00 the Medical morning. [place] levocetiriz 2021-05 Yes [id number] 5mg Take 1 [facility] ine 5 mg 0-31 tablet by ity of tablet 00:00: mouth [place] 00 every Medical evening. [place] montelukast 2021-05- No [id number] 10mg Take 1 [facility] 10 mg 0-31 03-22 tablet by ity of tablet 00:00: 00:00 mouth in [place] 00 :00 the Medical morning. [place] levocetiriz 2021-05- No [id number] 5mg Take 1 [facility] ine 5 mg 0-31 03-22 tablet by ity o f tablet 00:00: 00:00 mouth [place] 00 :00 every Medical evening. [place] montelukast 2021-05- No [id number] 10mg Take 1 [facility] 10 mg 0-31 03-22 tablet by ity of tablet 00:00: 00:00 mouth in [place] 00 :00 the Medical morning. [place] levocetiriz 2021-05- No [id number] 5mg Take 1 [facility] ine 5 mg 0-31 03-22 tablet by ity o f tablet 00:00: 00:00 mouth [place] 00 :00 every Medical evening. [place] montelukast 2021-05- No [id number] 10mg Take 1 [facility] 10 mg 0-31 03-22 tablet by ity of tablet 00:00: 00:00 mouth in [place] 00 :00 the Medical morning. Branch levocetiriz 2021-05- No [id number] 5mg Take 1 [facility] ine 5 mg 0 03-22 tablet by ity o f tablet 00:00: 00:00 mouth [place] 00 :00 every Medical evening. [place] azelastine 2021-05- No [id number] 1{spray Use 1 [facility] 137 mcg 031 02-13 } [place] in ity of (0.1 %) 00:00: 00:00 each [place] nasal spray 00 :00 nostril in [facility] morning and 1 [place] in the evening. Use in each nostril as directed azelastine 2021-05- No [id number] 1{spray Use 1 [facility] 137 mcg 0 02-13 } [place] in ity of (0.1 %) 00:00: 00:00 each [place] nasal spray 00 :00 nostril in [facility] the [place] morning and 1 [place] in the evening. Use in each nostril as directed azelastine 2021-05- No [id number] 1{spray Use 1 [facility] 137 mcg 0-13 } [place] in ity of (0.1 %) 00:00: 00:00 each [place] nasal spray 00 :00 nostril in [facility] morning and 1 [place] in the evening. Use in each nostril as directed pantoprazol Yes [id number] 40mg Take 1 [facility] e 40 mg EC 9-20 tablet by ity of tablet 00:00: mouth in [place] the Medical morning. Branch pantoprazol Yes [id number] 40mg Take 1 [facility] e 40 mg EC 9-20 tablet by ity of tablet 00:00: mouth in [place] the Medical morning. Branch pantoprazol 0 Yes [id number] 40mg Take 1 [facility] e 40 mg EC 9-20 tablet by ity of tablet 00:00: mouth in [place] the Medical morning. Branch pantoprazol 0 Yes [id number] 40mg Take 1 [facility] e 40 mg EC 9-20 tablet by ity of tablet 00:00: mouth in [place] the Medical morning. Branch pantoprazol 0 Yes [id number] 40mg Take 1 [facility] e 40 mg EC 9-20 tablet by ity of tablet 00:00: mouth in [place] the Medical morning. Branch pantoprazol 2021-0 Yes [id number] 40mg Take 1 [facility] e 40 mg EC 9-20 tablet by ity of tablet 00:00: mouth in [place] 00 the Medical morning. Branch pantoprazol 2021-0 Yes [id number] 40mg Take 1 [facility] e 40 mg EC 9-20 tablet by ity of tablet 00:00: mouth in [place] 00 the Medical morning. Branch pantoprazol 2021-0 Yes [id number] 40mg Take 1 [facility] e 40 mg EC 9-20 tablet by ity of tablet 00:00: mouth in [place] 00 the Medical morning. Branch pantoprazol 2021-0 Yes [id number] 40mg Take 1 [facility] e 40 mg EC 9-20 tablet by ity of tablet 00:00: mouth in [place] the Medical morning. Branch pantoprazol 2021-0 Yes [id number] 40mg Take 1 [facility] e 40 mg EC 9-20 tablet by ity of tablet 00:00: mouth in [place] the Medical morning. Branch pantoprazol 2021-0 Yes [id number] 40mg Take 1 [facility] e 40 mg EC 9-20 tablet by ity of tablet 00:00: mouth in [place] the Medical morning. Branch pantoprazol 2021-0 Yes [id number] 40mg Take 1 [facility] e 40 mg EC 9-20 tablet by ity of tablet 00:00: mouth in [place] the Medical morning. Branch pantoprazol 2021-0 Yes [id number] 40mg Take 1 [facility] e 40 mg EC 9-20 tablet by ity of tablet 00:00: mouth in [place] the Medical morning. Branch pantoprazol 2021-0 Yes [id number] 40mg Take 1 [facility] e 40 mg EC 9-20 tablet by ity of tablet 00:00: mouth in [place] the Medical morning. Branch pantoprazol 2021-0 Yes [id number] 40mg Take 1 [facility] e 40 mg EC 9-20 tablet by ity of tablet 00:00: mouth in [place] 00 the Medical morning. Branch pantoprazol 2021-0 Yes [id number] 40mg Take 1 [facility] e 40 mg EC 9-20 tablet by ity of tablet 00:00: mouth in [place] 00 the Medical morning. Branch pantoprazol 2021-0 Yes [id number] 40mg Take 1 [facility] e 40 mg EC 9-20 tablet by ity of tablet 00:00: mouth in [place] 00 the Medical morning. Branch pantoprazol 2021-0 Yes [id number] 40mg Take 1 [facility] e 40 mg EC 9-20 tablet by ity of tablet 00:00: mouth in [place] 00 the Medical morning. Branch pantoprazol 2021-0 Yes [id number] 40mg Take 1 [facility] e 40 mg EC 9-20 tablet by ity of tablet 00:00: mouth in [place] 00 the Medical morning. Branch pantoprazol 2021-0 Yes [id number] 40mg Take 1 [facility] e 40 mg EC 9-20 tablet by ity of tablet 00:00: mouth in [place] 00 the Medical morning. Branch pantoprazol 2021-0 Yes [id number] 40mg Take 1 [facility] e 40 mg EC 9-20 tablet by ity of tablet 00:00: mouth in [place] 00 the Medical morning. Branch pantoprazol 2021-0 Yes [id number] 40mg Take 1 [facility] e 40 mg EC 9-20 tablet by ity of tablet 00:00: mouth in [place] the Medical morning. Branch pantoprazol 2021-0 Yes [id number] 40mg Take 1 [facility] e 40 mg EC 9-20 tablet by ity of tablet 00:00: mouth in [place] the Medical morning. Branch pantoprazol 2021-0 Yes [id number] 40mg Take 1 [facility] e 40 mg EC 9-20 tablet by ity of tablet 00:00: mouth in [place] the Medical morning. Branch pantoprazol 2021-0 Yes [id number] 40mg Take 1 [facility] e 40 mg EC 9-20 tablet by ity of tablet 00:00: mouth in [place] the Medical morning. Branch pantoprazol 2021-0 Yes [id number] 40mg Take 1 [facility] e 40 mg EC 9-20 tablet by ity of tablet 00:00: mouth in [place] 00 the Medical morning. Branch pantoprazol 2021-0 Yes [id number] 40mg Take 1 [facility] e 40 mg EC 9-20 tablet by ity of tablet 00:00: mouth in [place] 00 the Medical morning. Branch pantoprazol 2021-0 Yes [id number] 40mg Take 1 [facility] e 40 mg EC 9-20 tablet by ity of tablet 00:00: mouth in [place] 00 the Medical morning. Branch pantoprazol 2021-0 Yes [id number] 40mg Take 1 [facility] e 40 mg EC 9-20 tablet by ity of tablet 00:00: mouth in [place] the Medical morning. Branch pantoprazol 2021-0 Yes [id number] 40mg Take 1 [facility] e 40 mg EC 9-20 tablet by ity of tablet 00:00: mouth in [place] the Medical morning. Branch pantoprazol 2021-0 Yes [id number] 40mg Take 1 [facility] e 40 mg EC 9-20 tablet by ity of tablet 00:00: mouth in [place] the Medical morning. Branch pantoprazol 2021-0 Yes [id number] 40mg Take 1 [facility] e 40 mg EC 9-20 tablet by ity of tablet 00:00: mouth in [place] the Medical morning. Branch pantoprazol 2021-0 Yes [id number] 40mg Take 1 [facility] e 40 mg EC 9-20 tablet by ity of tablet 00:00: mouth in [place] the Medical morning. Branch pantoprazol 2021-0 Yes [id number] 40mg Take 1 [facility] e 40 mg EC 9-20 tablet by ity of tablet 00:00: mouth in [place] the morning. Branch pantoprazol 2021-0 Yes [id number] 40mg Take 1 [facility] e 40 mg EC 9-20 tablet by ity of tablet 00:00: mouth in [place] the Medical morning. Branch pantoprazol 2021-0 Yes [id number] 40mg Take 1 [facility] e 40 mg EC 9-20 tablet by ity of tablet 00:00: mouth in [place] the morning. Branch metoprolol 2021-0 Yes [id number] 50mg Take 1 U nivers tartrate 50 9-06 tablet by ity of mg tablet 00:00: mouth in [facility] the Medical morning Branch and 1 tablet in the evening. metoprolol 2021-0 Yes [id number] 50mg Take 1 U nivers tartrate 50 9-06 tablet by ity of mg tablet 00:00: mouth in [facility] the Medical morning Branch and 1 tablet in the evening. metoprolol 2021-0 Yes [id number] 50mg Take 1 U nivers tartrate 50 9-06 tablet by ity of mg tablet 00:00: mouth in [facility] the Medical morning Branch and 1 tablet in the evening. metoprolol 2021-0 Yes [id number] 50mg Take 1 U nivers tartrate 50 9-06 tablet by it[facility] of mg tablet 00:00: mouth [place] 00 the Medical morning Branch and 1 tablet in the evening. metoprolol 2021-0 Yes [id number] 50mg Take 1 U nivers tartrate 50 9-06 tablet by it[facility] of mg tablet 00:00: mouth [place] 00 the Medical morning Branch and 1 tablet in the evening. metoprolol 2021-0 Yes [id number] 50mg Take 1 U nivers tartrate 50 9-06 tablet by it[facility] of mg tablet 00:00: mouth [place] 00 the Medical morning Branch and 1 tablet in the evening. metoprolol 2021-0 Yes [id number] 50mg Take 1 U nivers tartrate 50 9-06 tablet by it[facility] of mg tablet 00:00: mouth [place] 00 the Medical morning Branch and 1 tablet in the evening. metoprolol 2021-0 Yes [id number] 50mg Take 1 U nivers tartrate 50 9-06 tablet by it[facility] of mg tablet 00:00: mouth [place] 00 the Medical morning Branch and 1 tablet in the evening. metoprolol 2021-0 Yes [id number] 50mg Take 1 U nivers tartrate 50 9-06 tablet by ity of mg tablet 00:00: mouth [place] 00 the Medical morning Branch and 1 tablet in the evening. metoprolol 2021-0 Yes [id number] 50mg Take 1 U nivers tartrate 50 9-06 tablet by ity of mg tablet 00:00: mouth [place] 00 the Medical morning Branch and 1 tablet in the evening. metoprolol 2021-0 Yes [id number] 50mg Take 1 U nivers tartrate 50 9-06 tablet by it[facility] of mg tablet 00:00: mouth [place] 00 the Medical morning Branch and 1 tablet in the evening. metoprolol 2-0 Yes [id number] 50mg Take 1 U nivers tartrate 50 9-06 tablet by ity of mg tablet 00:00: mouth [place] 00 the Medical morning Branch and 1 tablet in the evening. metoprolol 2-0 Yes [id number] 50mg Take 1 U nivers tartrate 50 9-06 tablet by ity of mg tablet 00:00: mouth [place] 00 the Medical morning Branch and 1 tablet in the evening. metoprolol 2-0 Yes [id number] 50mg Take 1 U nivers tartrate 50 9-06 tablet by ity of mg tablet 00:00: mouth [place] 00 the Medical morning Branch and 1 tablet in the evening. metoprolol 2021-0 Yes [id number] 50mg Take 1 U nivers tartrate 50 9-06 tablet by ity of mg tablet 00:00: mouth [place] 00 the Medical morning Branch and 1 tablet in the evening. metoprolol 2021-0 Yes [id number] 50mg Take 1 U nivers tartrate 50 9-06 tablet by ity of mg tablet 00:00: mouth [place] 00 the Medical morning Branch and 1 tablet in the evening. metoprolol 2021-0 Yes [id number] 50mg Take 1 U nivers tartrate 50 9-06 tablet by ity of mg tablet 00:00: mouth [place] 00 the Medical morning Branch and 1 tablet in the evening. metoprolol 2021-0 Yes [id number] 50mg Take 1 U nivers tartrate 50 9-06 tablet by ity of mg tablet 00:00: mouth [place] 00 the Medical morning Branch and 1 tablet in the evening. metoprolol 2021-0 Yes [id number] 50mg Take 1 U nivers tartrate 50 9-06 tablet by ity of mg tablet 00:00: mouth [place] 00 the Medical morning Branch and 1 tablet in the evening. metoprolol 2021-0 Yes [id number] 50mg Take 1 U nivers tartrate 50 9-06 tablet by ity of mg tablet 00:00: mouth [place] 00 the Medical morning Branch and 1 tablet in the evening. metoprolol 2021-0 Yes [id number] 50mg Take 1 U nivers tartrate 50 9-06 tablet by ity of mg tablet 00:00: mouth [place] 00 the Medical morning Branch and 1 tablet in the evening. metoprolol 2021-0 Yes [id number] 50mg Take 1 U nivers tartrate 50 9-06 tablet by ity of mg tablet 00:00: mouth [place] 00 the Medical morning Branch and 1 tablet in the evening. metoprolol 2-0 Yes [id number] 50mg Take 1 U nivers tartrate 50 9-06 tablet by ity of mg tablet 00:00: mouth [place] 00 the Medical morning Branch and 1 tablet in the evening. metoprolol 2022- No [id number] 50mg Take 1 [facility] tartrate 50 01-08 tablet by it y of mg tablet 00:00: 00:00 mouth in [place] 00 :00 the Medical morning Branch and 1 tablet in the evening. metoprolol 2022- No [id number] 50mg Take 1 [facility] tartrate 50 01-08 tablet by it y of mg tablet 00:00: 00:00 mouth in [place] 00 :00 the Medical morning Branch and 1 tablet in the evening. metoprolol 2022- No [id number] 50mg Take 1 [facility] tartrate 50 01-08 tablet by it y of mg tablet 00:00: 00:00 mouth in [place] 00 :00 the Medical morning Branch and 1 tablet in the evening. predniSONE Yes [id number] Take two [facility] 20 mg 8-25 tabs for ity of tablet 00:00: three [place] 00 days, take Medical one tab Branch for three days predniSONE 2021-0 Yes [id number] Take two [facility] 20 mg 8-25 tabs for ity of tablet 00:00: three [place] 00 days, take Medical one tab Branch for three days predniSONE 2021-0 Yes [id number] Take two [facility] 20 mg 8-25 tabs for ity of tablet 00:00: three [place] 00 days, take Medical one tab Branch for three days predniSONE 2021-0 Yes [id number] Take two [facility] 20 mg 8-25 tabs for ity of tablet 00:00: three [place] 00 days, take Medical one tab Branch for three days predniSONE 2021-0 Yes [id number] Take two [facility] 20 mg 8-25 tabs for ity of tablet 00:00: three 00 days, take Medical one tab Branch for three days predniSONE 2021-0 Yes [id number] Take two [facility] 20 mg 8-25 tabs for ity of tablet 00:00: three [place] 00 days, take Medical one tab Branch for three days predniSONE 2021-0 Yes [id number] Take two [facility] 20 mg 8-25 tabs for ity of tablet 00:00: three [place] 00 days, take Medical one tab Branch for three days predniSONE 2021-0 Yes [id number] Take two [facility] 20 mg 8-25 tabs for ity of tablet 00:00: three [place] 00 days, take Medical one tab Branch for three days predniSONE 2021-0 Yes [id number] Take two [facility] 20 mg 8-25 tabs for ity of tablet 00:00: three [place] 00 days, take Medical one tab Branch for three days predniSONE 2021-0 Yes [id number] Take two [facility] 20 mg 8-25 tabs for ity of tablet 00:00: three [place] 00 days, take Medical one tab Branch for three days predniSONE 2021-0 2021- No [id number] Take two [facility] 20 mg 8-25 10-31 tabs for ity of tablet 00:00: 00:00 three [place] 00 :00 days, take Medical one tab Branch for three days predniSONE 2021-0 2021- No [id number] Take two [facility] 20 mg 8-25 10-31 tabs for ity of tablet 00:00: 00:00 three [place] 00 :00 days, take Medical one tab Branch for three days molnupiravi 2021-0 2021- No [id number] 800mg Take 4 [facility] r 200 mg 8-12 08-25 capsules ity of capsule 00:00: 00:00 by mouth [place] 00 :00 every 12 Medical (twelve) Branch hours. aspirin 81 0 Yes 81mg Take 81 mg U nivers mg EC 8-11 by mouth ity of tablet 10:38: daily. [place] [address] Medical Branch ascorbic Yes Take by Univer s acid 8-11 mouth. ity of (VITAMIN C 10:38: [place] ORAL) Medical Branch aspirin 81 2021-0 Yes 81mg Take 81 mg U nivers mg EC 8-11 by mouth ity of tablet 10:38: daily. [place] [address] Medical Branch ascorbic Yes Take by Univer s acid 8-11 mouth. ity of (VITAMIN C 10:38: [place] ORAL) Medical Branch aspirin 81 2021-0 Yes 81mg Take 81 mg U nivers mg EC 8-11 by mouth ity of tablet 10:38: daily. [place] [address] Medical Branch ascorbic Yes Take by Univer s acid 8-11 mouth. ity of (VITAMIN C 10:38: [place] ORAL) Medical Branch aspirin 81 2021-0 Yes 81mg Take 81 mg U nivers mg EC 8-11 by mouth ity of tablet 10:38: daily. [place] [address] Medical Branch ascorbic 2021-0 Yes Take by Univer s acid 8-11 mouth. ity of (VITAMIN C 10:38: [place] ORAL) Medical Branch aspirin 81 2021-0 Yes 81mg Take 81 mg U nivers mg EC 8-11 by mouth ity of tablet 10:38: daily. [place] [address] Medical Branch ascorbic 2021-0 Yes Take by Univer s acid 8-11 mouth. ity of (VITAMIN C 10:38: [place] ORAL) Medical Branch aspirin 81 2021-0 Yes 81mg Take 81 mg U nivers mg EC 8-11 by mouth ity of tablet 10:38: daily. [place] [address] Medical Branch ascorbic 2021-0 Yes Take by Univer s acid 8-11 mouth. ity of (VITAMIN C 10:38: [place] ORAL) Medical Branch aspirin 81 2021-0 Yes 81mg Take 81 mg U nivers mg EC 8-11 by mouth ity of tablet 10:38: daily. [place] [address] Medical Branch ascorbic 2021-0 Yes Take by Univer s acid 8-11 mouth. ity of (VITAMIN C 10:38: [place] ORAL) Medical Branch aspirin 81 2021-0 Yes 81mg Take 81 mg U nivers mg EC 8-11 by mouth ity of tablet 10:38: daily. [place] [address] Medical Branch ascorbic 2021-0 Yes Take by Univer s acid 8-11 mouth. ity of (VITAMIN C 10:38: [place] ORAL) Medical Branch aspirin 81 2021-0 Yes 81mg Take 81 mg U nivers mg EC 8-11 by mouth ity of tablet 10:38: daily. [place] [address] Medical Branch ascorbic 2021-0 Yes Take by Univer s acid 8-11 mouth. ity of (VITAMIN C 10:38: [place] ORAL) Medical Branch aspirin 81 2021-0 Yes 81mg Take 81 mg U nivers mg EC 8-11 by mouth ity of tablet 10:38: daily. [place] [address] Medical Branch ascorbic 2021-0 Yes Take by Univer s acid 8-11 mouth. ity of (VITAMIN C 10:38: [place] ORAL) Medical Branch aspirin 81 2021-0 Yes 81mg Take 81 mg U nivers mg EC 8-11 by mouth ity of tablet 10:38: daily. [place] [address] Medical Branch ascorbic 2022-0 Yes Take by Univer s acid 8-11 mouth. ity of (VITAMIN C 10:38: [place] ORAL) 28 Medical Branch aspirin 81 2022-0 Yes 81mg Take 81 mg U nivers mg EC 8-11 by mouth ity of tablet 10:38: daily. [place] [address] Medical Branch ascorbic 2022-0 Yes Take by Univer s acid 8-11 mouth. ity of (VITAMIN C 10:38: [place] ORAL) Medical Branch aspirin 81 2021-0 Yes 81mg Take 81 mg U nivers mg EC 8-11 by mouth ity of tablet 10:38: daily. [place] [address] Medical Branch ascorbic 2022-0 Yes Take by Univer s acid 8-11 mouth. ity of (VITAMIN C 10:38: [place] ORAL) Medical Branch aspirin 81 2022-0 Yes 81mg Take 81 mg U nivers mg EC 8-11 by mouth ity of tablet 10:38: daily. [place] [address] Medical Branch ascorbic 202-0 Yes Take by Univer s acid 8-11 mouth. ity of (VITAMIN C 10:38: [place] ORAL) Medical Branch aspirin 81 2021-0 Yes 81mg Take 81 mg U nivers mg EC 8-11 by mouth ity of tablet 10:38: daily. [place] [address] Medical Branch ascorbic 2022-0 Yes Take by Univer s acid 8-11 mouth. ity of (VITAMIN C 10:38: [place] ORAL) Medical Branch aspirin 81 2022-0 Yes 81mg Take 81 mg U nivers mg EC 8-11 by mouth ity of tablet 10:38: daily. [place] [address] Medical Branch ascorbic 2022-0 Yes Take by Univer s acid 8-11 mouth. ity of (VITAMIN C 10:38: [place] ORAL) Medical Branch aspirin 81 2022-0 Yes 81mg Take 81 mg U nivers mg EC 8-11 by mouth ity of tablet 10:38: daily. [place] [address] Medical Branch ascorbic 2022-0 Yes Take by Univer s acid 8-11 mouth. ity of (VITAMIN C 10:38: [place] ORAL) Medical Branch aspirin 81 2022-0 Yes 81mg Take 81 mg U nivers mg EC 8-11 by mouth ity of tablet 10:38: daily. [place] [address] Medical Branch ascorbic 2022-0 Yes Take by Univer s acid 8-11 mouth. ity of (VITAMIN C 10:38: [place] ORAL) 28 Medical Branch aspirin 81 2021-0 Yes 81mg Take 81 mg U nivers mg EC 8-11 by mouth ity of tablet 10:38: daily. [place] [address] Medical Branch ascorbic 2021-0 Yes Take by Univer s acid 8-11 mouth. ity of (VITAMIN C 10:38: [place] ORAL) Medical Branch aspirin 81 2021-0 Yes 81mg Take 81 mg U nivers mg EC 8-11 by mouth ity of tablet 10:38: daily. [place] [address] Medical Branch ascorbic 2021-0 Yes Take by Univer s acid 8-11 mouth. ity of (VITAMIN C 10:38: [place] ORAL) Medical Branch aspirin 81 2021-0 Yes 81mg Take 81 mg U nivers mg EC 8-11 by mouth ity of tablet 10:38: daily. [place] [address] Medical Branch ascorbic 2021-0 Yes Take by Univer s acid 8-11 mouth. ity of (VITAMIN C 10:38: [place] ORAL) Medical Branch aspirin 81 0 Yes 81mg Take 81 mg U nivers mg EC 8-11 by mouth ity of tablet 10:38: daily. [place] [address] Medical Branch ascorbic 2021-0 Yes Take by Univer s acid 8-11 mouth. ity of (VITAMIN C 10:38: [place] ORAL) Medical Branch aspirin 81 2021-0 Yes 81mg Take 81 mg U nivers mg EC 8-11 by mouth ity of tablet 10:38: daily. [place] [address] Medical Branch ascorbic 2021-0 Yes Take by Univer s acid 8-11 mouth. ity of (VITAMIN C 10:38: [place] ORAL) Medical Branch aspirin 81 2021-0 Yes 81mg Take 81 mg U nivers mg EC 8-11 by mouth ity of tablet 10:38: daily. [place] [address] Medical Branch ascorbic 2021-0 Yes Take by Univer s acid 8-11 mouth. ity of (VITAMIN C 10:38: [place] ORAL) Medical Branch aspirin 81 2021-0 Yes 81mg Take 81 mg U nivers mg EC 8-11 by mouth ity of tablet 10:38: daily. [place] [address] Medical Branch ascorbic 2021-0 Yes Take by Univer s acid 8-11 mouth. ity of (VITAMIN C 10:38: [place] ORAL) [address] [place] [id number] Branch aspirin 81 2021-0 Yes 81mg Take 81 mg U nivers mg EC 8-11 by mouth ity of tablet 10:38: daily. [address] Branch ascorbic 2021-0 Yes Take by Univer s acid 8-11 mouth. ity of (VITAMIN C 10:38: [place] ORAL) [address] [place] [address] Branch aspirin 81 2021-0 Yes 81mg Take 81 mg U nivers mg EC 8-11 by mouth ity of tablet 10:38: daily. [address] Branch aspirin 81 2021-0 Yes 81mg Take 81 mg U nivers mg EC 8-11 by mouth ity of tablet 10:38: daily. [address] Branch aspirin 81 2021-0 Yes 81mg Take 81 mg U nivers mg EC 8-11 by mouth ity of tablet 10:38: daily. [address] Branch aspirin 81 2021-0 Yes 81mg Take 81 mg U nivers mg EC 8-11 by mouth ity of tablet 10:38: daily. [address] Branch aspirin 81 2021-0 Yes 81mg Take 81 mg U nivers mg EC 8-11 by mouth ity of tablet 10:38: daily. [address] Branch aspirin 81 2021-0 Yes 81mg Take 81 mg U nivers mg EC 8-11 by mouth ity of tablet 10:38: daily. [address] Branch aspirin 81 2021-0 Yes 81mg Take 81 mg U nivers mg EC 8-11 by mouth ity of tablet 10:38: daily. [address] aspirin 81 2021-0 Yes 81mg Take 81 mg U nivers mg EC 8-11 by mouth ity of tablet 10:38: daily. [address] Branch aspirin 81 2021-0 Yes 81mg Take 81 mg U nivers mg EC 8-11 by mouth ity of tablet 10:38: daily. [address] Branch aspirin 81 2021-0 Yes 81mg Take 81 mg U nivers mg EC 8-11 by mouth ity of tablet 10:38: daily. [address] Branch aspirin 81 2021-0 Yes 81mg Take 81 mg U nivers mg EC 8-11 by mouth ity of tablet 10:38: daily. [address] aspirin 81 2021-0 Yes 81mg Take 81 mg U nivers mg EC 8-11 by mouth ity of tablet 10:38: daily. [place] [address] Medical Branch aspirin 81 2021-0 Yes 81mg Take 81 mg U nivers mg EC 8-11 by mouth ity of tablet 10:38: daily. [address] Branch ibuprofen 0 Yes [id number] 600mg Take 1 U nivers 600 mg 8-11 tablet by ity of tablet 00:00: mouth [place] 00 every 8 Medical (eight) Branch hours as needed for Pain (scale 4-6). baclofen 5 0 Yes [id number] 5mg Take 1 [facility] mg tablet 8-11 tablet by ity o f 00:00: mouth 3 [place] 00 (three) Medical times Branch daily as needed for Pain (scale 4-6) (May take 1-2 tabs PRN back pain, may make sleepy, do not use before driving). ibuprofen 0 Yes [id number] 600mg Take 1 U nivers 600 mg 8-11 tablet by ity of tablet 00:00: mouth [place] 00 every 8 Medical (eight) Branch hours as needed for Pain (scale 4-6). baclofen 5 0 Yes [id number] 5mg Take 1 [facility] mg tablet 8-11 tablet by ity o f 00:00: mouth 3 [place] 00 (three) Medical times Branch daily as needed for Pain (scale 4-6) (May take 1-2 tabs PRN back pain, may make sleepy, do not use before driving). ibuprofen 0 Yes [id number] 600mg Take 1 U nivers 600 mg 8-11 tablet by ity of tablet 00:00: mouth [place] 00 every 8 Medical (eight) Branch hours as needed for Pain (scale 4-6). baclofen 5 2021-0 Yes [id number] 5mg Take 1 [facility] mg tablet 8-11 tablet by ity o f 00:00: mouth 3 [place] 00 (three) Medical times Branch daily as needed for Pain (scale 4-6) (May take 1-2 tabs PRN back pain, may make sleepy, do not use before driving). ibuprofen 0 Yes [id number] 600mg Take 1 U nivers 600 mg 8-11 tablet by ity of tablet 00:00: mouth [place] 00 every 8 Medical (eight) Branch hours as needed for Pain (scale 4-6). baclofen 5 2022-0 Yes [id number] 5mg Take 1 [facility] mg tablet 8-11 tablet by ity o f 00:00: mouth 3 [place] (three) Medical times Branch daily as needed for Pain (scale 4-6) (May take 1-2 tabs PRN back pain, may make sleepy, do not use before driving). ibuprofen 0 Yes [id number] 600mg Take 1 U nivers 600 mg 8-11 tablet by ity of tablet 00:00: mouth [place] 00 every 8 Medical (eight) Branch hours as needed for Pain (scale 4-6). baclofen 5 0 Yes [id number] 5mg Take 1 [facility] mg tablet 8-11 tablet by ity o f 00:00: mouth 3 00 (three) Medical times Branch daily as needed for Pain (scale 4-6) (May take 1-2 tabs PRN back pain, may make sleepy, do not use before driving). ibuprofen Yes [id number] 600mg Take 1 U nivers 600 mg 8-11 tablet by ity of tablet 00:00: mouth [place] 00 every 8 Medical (eight) Branch hours as needed for Pain (scale 4-6). baclofen 5 0 Yes [id number] 5mg Take 1 [facility] mg tablet 8-11 tablet by ity o f 00:00: mouth 3 (three) Medical times Branch daily as needed for Pain (scale 4-6) (May take 1-2 tabs PRN back pain, may make sleepy, do not use before driving). ibuprofen 0 Yes [id number] 600mg Take 1 U nivers 600 mg 8-11 tablet by ity of tablet 00:00: mouth [place] 00 every 8 Medical (eight) Branch hours as needed for Pain (scale 4-6). baclofen 5 0 Yes [id number] 5mg Take 1 [facility] mg tablet 8-11 tablet by ity o f 00:00: mouth 3 00 (three) Medical times Branch daily as needed for Pain (scale 4-6) (May take 1-2 tabs PRN back pain, may make sleepy, do not use before driving). ibuprofen 0 Yes [id number] 600mg Take 1 U nivers 600 mg 8-11 tablet by ity of tablet 00:00: mouth [place] 00 every 8 Medical (eight) Branch hours as needed for Pain (scale 4-6). baclofen 5 2021-0 Yes [id number] 5mg Take 1 [facility] mg tablet 8-11 tablet by ity o f 00:00: mouth 3 [place] 00 (three) Medical times Branch daily as needed for Pain (scale 4-6) (May take 1-2 tabs PRN back pain, may make sleepy, do not use before driving). ibuprofen 2021-0 Yes [id number] 600mg Take 1 U nivers 600 mg 8-11 tablet by ity of tablet 00:00: mouth [place] 00 every 8 Medical (eight) Branch hours as needed for Pain (scale 4-6). baclofen 5 2021-0 Yes [id number] 5mg Take 1 [facility] mg tablet 8-11 tablet by ity o f 00:00: mouth 3 [place] 00 (three) Medical times Branch daily as needed for Pain (scale 4-6) (May take 1-2 tabs PRN back pain, may make sleepy, do not use before driving). ibuprofen 2021-0 Yes [id number] 600mg Take 1 U nivers 600 mg 8-11 tablet by ity of tablet 00:00: mouth [place] 00 every 8 Medical (eight) Branch hours as needed for Pain (scale 4-6). baclofen 5 2021-0 Yes [id number] 5mg Take 1 [facility] mg tablet 8-11 tablet by ity o f 00:00: mouth 3 00 (three) Medical times Branch daily as needed for Pain (scale 4-6) (May take 1-2 tabs PRN back pain, may make sleepy, do not use before driving). ibuprofen 2021-0 2021- No [id number] 600mg Take 1 [facility] 600 mg 8-11 10-31 tablet by ity of tablet 00:00: 00:00 mouth [place] 00 :00 every 8 Medical (eight) Branch hours as needed for Pain (scale 4-6). baclofen 5 2021-0 2021- No [id number] 5mg Take 1 [facility] mg tablet 8-11 10-31 tablet by ity of 00:00: 00:00 mouth 3 [place] 00 :00 (three) Medical times Branch daily as needed for Pain (scale 4-6) (May take 1-2 tabs PRN back pain, may make sleepy, do not use before driving). ibuprofen 2021- No [id number] 600mg Take 1 [facility] 600 mg 8- 10-31 tablet by ity of tablet 00:00: 00:00 mouth [place] 00 :00 every 8 Medical (eight) Branch hours as needed for Pain (scale 4-6). baclofen 5 2021- No [id number] 5mg Take 1 [facility] mg tablet 8 10-31 tablet by ity of 00:00: 00:00 mouth 3 [place] 00 :00 (three) Medical times Branch daily as needed for Pain (scale 4-6) (May take 1-2 tabs PRN back pain, may make sleepy, do not use before driving). benzonatate 2021- No [id number] 200mg Take 2 [facility] (TESSALON 12-13 08-25 capsules ity o f PERLES) 100 00:00: 00:00 by mouth [place] mg capsule 00 :00 every 8 Medica l (eight) Branch hours as needed for Cough. lisinopriL Yes [id number] 10mg Take 0.5 [facility] 20 mg 6-30 tablets by ity of tablet 00:00: mouth [place] 00 daily. Medical Branch lisinopriL Yes [id number] 10mg Take 0.5 [facility] 20 mg 6-30 tablets by ity of tablet 00:00: mouth [place] 00 daily. Medical Branch lisinopriL Yes [id number] 10mg Take 0.5 [facility] 20 mg 6-30 tablets by ity of tablet 00:00: mouth [place] 00 daily. [facility] Branch lisinopriL Yes [id number] 10mg Take 0.5 [facility] 20 mg 6-30 tablets by ity of tablet 00:00: mouth [place] 00 daily. [facility] Branch lisinopriL 0 Yes [id number] 10mg Take 0.5 [facility] 20 mg 6-30 tablets by ity of tablet 00:00: mouth [place] 00 daily. [facility] Branch lisinopriL Yes [id number] 10mg Take 0.5 [facility] 20 mg 6-30 tablets by ity of tablet 00:00: mouth [place] 00 daily. [facility] Branch lisinopriL Yes [id number] 10mg Take 0.5 [facility] 20 mg 6-30 tablets by ity of tablet 00:00: mouth [place] 00 daily. Medical Branch lisinopriL 2021-0 Yes [id number] 10mg Take 0.5 [facility] 20 mg 6-30 tablets by ity of tablet 00:00: mouth [place] 00 daily. Medical Branch lisinopriL 2021-0 Yes [id number] 10mg Take 0.5 [facility] 20 mg 6-30 tablets by ity of tablet 00:00: mouth [place] 00 daily. Medical Branch lisinopriL 2021-0 Yes [id number] 10mg Take 0.5 [facility] 20 mg 6-30 tablets by ity of tablet 00:00: mouth [place] 00 daily. Medical Branch lisinopriL 2021-0 Yes [id number] 10mg Take 0.5 [facility] 20 mg 6-30 tablets by ity of tablet 00:00: mouth [place] 00 daily. Medical Branch lisinopriL 2021-0 Yes [id number] 10mg Take 0.5 [facility] 20 mg 6-30 tablets by ity of tablet 00:00: mouth [place] 00 daily. Medical Branch lisinopriL 2021-0 Yes [id number] 10mg Take 0.5 [facility] 20 mg 6-30 tablets by ity of tablet 00:00: mouth [place] 00 daily. Medical Branch lisinopriL 2021-0 Yes [id number] 10mg Take 0.5 [facility] 20 mg 6-30 tablets by ity of tablet 00:00: mouth [place] 00 daily. Medical Branch lisinopriL 2021-0 Yes [id number] 10mg Take 0.5 [facility] 20 mg 6-30 tablets by ity of tablet 00:00: mouth [place] 00 daily. Medical Branch lisinopriL 2021-0 Yes [id number] 10mg Take 0.5 [facility] 20 mg 6-30 tablets by ity of tablet 00:00: mouth [place] 00 daily. Medical Branch lisinopriL 2021-0 Yes [id number] 10mg Take 0.5 [facility] 20 mg 6-30 tablets by ity of tablet 00:00: mouth [place] 00 daily. Medical Branch lisinopriL 2-0 Yes [id number] 10mg Take 0.5 [facility] 20 mg 6-30 tablets by ity of tablet 00:00: mouth [place] 00 daily. [facility] Branch lisinopriL 2-0 Yes [id number] 10mg Take 0.5 [facility] 20 mg 6-30 tablets by ity of tablet 00:00: mouth [place] 00 daily. Medical Branch lisinopriL Yes [id number] 10mg Take 0.5 [facility] 20 mg 6-30 tablets by ity of tablet 00:00: mouth [place] 00 daily. Medical Branch lisinopriL 0 Yes [id number] 10mg Take 0.5 [facility] 20 mg 6-30 tablets by ity of tablet 00:00: mouth [place] 00 daily. Medical Branch lisinopriL 0 Yes [id number] 10mg Take 0.5 [facility] 20 mg 6-30 tablets by ity of tablet 00:00: mouth [place] 00 daily. Medical Branch lisinopriL Yes [id number] 10mg Take 0.5 [facility] 20 mg 6-30 tablets by ity of tablet 00:00: mouth [place] 00 daily. Medical Branch lisinopriL Yes [id number] 10mg Take 0.5 [facility] 20 mg 6-30 tablets by ity of tablet 00:00: mouth [place] 00 daily. Medical Branch lisinopriL 2022- No [id number] 10mg Take 0.5 [facility] 20 mg 6-30 03-08 tablets by ity of tablet 00:00: 00:00 mouth [place] 00 :00 daily. Medical Branch lisinopriL 2022- No [id number] 10mg Take 0.5 [facility] 20 mg 6-30 03-08 tablets by ity of tablet 00:00: 00:00 mouth [place] 00 :00 daily. Medical Branch lisinopriL 2022- No [id number] 10mg Take 0.5 [facility] 20 mg 6-30 03-08 tablets by ity of tablet 00:00: 00:00 mouth [place] 00 :00 daily. Medical Branch metoprolol 2021- No [id number] 50mg Take 1 [facility] tartrate 50 5-17 09-06 tablet by it y of mg tablet 00:00: 00:00 mouth 2 [place] :[place] (two) Medical times Branch daily. ezetimibe 0 Yes [id number] 10mg Take 1 Un brendan 10 mg 3-08 tablet by ity of tablet 00:00: mouth [place] 00 daily. Medical Branch ezetimibe 0 Yes [id number] 10mg Take 1 Un brendan 10 mg 3-08 tablet by ity of tablet 00:00: mouth daily. Medical Branch ezetimibe 2022-0 Yes [id number] 10mg Take 1 Un brendan 10 mg 3-08 tablet by ity of tablet 00:00: mouth daily. Medical Branch pravastatin 2022-0 Yes 10mg Take 1 Univ ers 10 mg 3-08 tablet by ity of tablet 00:00: mouth at [place] bedtime. Medical Branch ezetimibe 2022-0 Yes [id number] 10mg Take 1 U nivers 10 mg 3-08 tablet by ity of tablet 00:00: mouth daily. Medical Branch pravastatin 2-0 Yes 10mg Take 1 Univ ers 10 mg 3-08 tablet by ity of tablet 00:00: mouth at [place] bedtime. Medical Branch ezetimibe 2-0 Yes [id number] 10mg Take 1 U nivers 10 mg 3-08 tablet by ity of tablet 00:00: mouth daily. Medical Branch pravastatin 2-0 Yes 10mg Take 1 Univ ers 10 mg 3-08 tablet by ity of tablet 00:00: mouth at [place] bedtime. Medical Branch ezetimibe 2-0 Yes [id number] 10mg Take 1 U nivers 10 mg 3-08 tablet by ity of tablet 00:00: mouth daily. Medical Branch pravastatin 2022-0 Yes 10mg Take 1 Univ ers 10 mg 3-08 tablet by ity of tablet 00:00: mouth at [place] bedtime. Medical Branch ezetimibe 2022-0 Yes [id number] 10mg Take 1 U nivers 10 mg 3-08 tablet by ity of tablet 00:00: mouth daily. Medical Branch pravastatin 2022-0 Yes 10mg Take 1 Univ ers 10 mg 3-08 tablet by ity of tablet 00:00: mouth at [place] bedtime. Medical Branch ezetimibe 2022-0 Yes [id number] 10mg Take 1 U nivers 10 mg 3-08 tablet by ity of tablet 00:00: mouth daily. Medical Branch pravastatin 2022-0 Yes 10mg Take 1 Univ ers 10 mg 3-08 tablet by ity of tablet 00:00: mouth at [place] bedtime. Medical Branch ezetimibe 2022-0 Yes [id number] 10mg Take 1 U nivers 10 mg 3-08 tablet by ity of tablet 00:00: mouth [place] 00 daily. Medical Branch pravastatin 2022-0 Yes 10mg Take 1 Univ ers 10 mg 3-08 tablet by ity of tablet 00:00: mouth at [place] bedtime. Medical Branch ezetimibe 2022-0 Yes [id number] 10mg Take 1 U nivers 10 mg 3-08 tablet by ity of tablet 00:00: mouth 00 daily. Medical Branch pravastatin 2022-0 Yes 10mg Take 1 Univ ers 10 mg 3-08 tablet by ity of tablet 00:00: mouth at [place] bedtime. Medical Branch ezetimibe 2022-0 Yes [id number] 10mg Take 1 U nivers 10 mg 3-08 tablet by ity of tablet 00:00: mouth 00 daily. Medical Branch pravastatin 2022-0 Yes 10mg Take 1 Univ ers 10 mg 3-08 tablet by ity of tablet 00:00: mouth at [place] bedtime. Medical Branch ezetimibe 2022-0 Yes [id number] 10mg Take 1 U nivers 10 mg 3-08 tablet by ity of tablet 00:00: mouth 00 daily. Medical Branch pravastatin 2022-0 Yes 10mg Take 1 Univ ers 10 mg 3-08 tablet by ity of tablet 00:00: mouth at [place] bedtime. Medical Branch ezetimibe 2022-0 Yes [id number] 10mg Take 1 U nivers 10 mg 3-08 tablet by ity of tablet 00:00: mouth daily. Medical Branch pravastatin 2022-0 Yes 10mg Take 1 Univ ers 10 mg 3-08 tablet by ity of tablet 00:00: mouth at [place] bedtime. Medical Branch ezetimibe 2022-0 Yes [id number] 10mg Take 1 U nivers 10 mg 3-08 tablet by ity of tablet 00:00: mouth 00 daily. Medical Branch pravastatin 2022-0 Yes 10mg Take 1 Univ ers 10 mg 3-08 tablet by ity of tablet 00:00: mouth at [place] bedtime. Medical Branch ezetimibe 2022-0 Yes [id number] 10mg Take 1 U nivers 10 mg 3-08 tablet by ity of tablet 00:00: mouth [place] 00 daily. Medical Branch pravastatin 2-0 Yes 10mg Take 1 Univ ers 10 mg 3-08 tablet by ity of tablet 00:00: mouth at [place] 00 bedtime. Medical Branch ezetimibe 2-0 Yes [id number] 10mg Take 1 U nivers 10 mg 3-08 tablet by ity of tablet 00:00: mouth [place] 00 daily. Medical Branch pravastatin 2-0 Yes 10mg Take 1 Univ ers 10 mg 3-08 tablet by ity of tablet 00:00: mouth at [place] 00 bedtime. Medical Branch ezetimibe 2-0 Yes [id number] 10mg Take 1 U nivers 10 mg 3-08 tablet by ity of tablet 00:00: mouth [place] 00 daily. Medical Branch pravastatin 2-0 Yes 10mg Take 1 Univ ers 10 mg 3-08 tablet by ity of tablet 00:00: mouth at [place] 00 bedtime. Medical Branch ezetimibe 2-0 Yes [id number] 10mg Take 1 U nivers 10 mg 3-08 tablet by ity of tablet 00:00: mouth [place] 00 daily. Medical Branch ezetimibe 2021-0 Yes [id number] 10mg Take 1 U nivers 10 mg 3-08 tablet by ity of tablet 00:00: mouth [place] 00 daily. Medical Branch ezetimibe 2021-0 Yes [id number] 10mg Take 1 U nivers 10 mg 3-08 tablet by ity of tablet 00:00: mouth [place] 00 daily. Medical Branch ezetimibe 2-0 Yes [id number] 10mg Take 1 U nivers 10 mg 3-08 tablet by ity of tablet 00:00: mouth [place] 00 daily. Medical Branch ezetimibe 2-0 Yes [id number] 10mg Take 1 U nivers 10 mg 3-08 tablet by ity of tablet 00:00: mouth [place] 00 daily. Medical Branch ezetimibe 2022-0 Yes [id number] 10mg Take 1 U nivers 10 mg 3-08 tablet by ity of tablet 00:00: mouth [place] 00 daily. Medical Branch ezetimibe 2-0 Yes [id number] 10mg Take 1 U nivers 10 mg 3-08 tablet by ity of tablet 00:00: mouth [place] 00 daily. Medical Branch ezetimibe 2-0 Yes [id number] 10mg Take 1 U nivers 10 mg 3-08 tablet by ity of tablet 00:00: mouth [place] 00 daily. Medical Branch ezetimibe 2021-0 Yes [id number] 10mg Take 1 U nivers 10 mg 3-08 tablet by ity of tablet 00:00: mouth [place] 00 daily. Medical Branch ezetimibe 2021-0 Yes [id number] 10mg Take 1 U nivers 10 mg 3-08 tablet by ity of tablet 00:00: mouth [place] 00 daily. Medical Branch ezetimibe 2021-0 Yes [id number] 10mg Take 1 U nivers 10 mg 3-08 tablet by ity of tablet 00:00: mouth [place] 00 daily. Medical Branch ezetimibe 2021-0 Yes [id number] 10mg Take 1 U nivers 10 mg 3-08 tablet by ity of tablet 00:00: mouth [place] 00 daily. Medical Branch ezetimibe 2021-0 Yes [id number] 10mg Take 1 U nivers 10 mg 3-08 tablet by ity of tablet 00:00: mouth [place] 00 daily. Medical Branch ezetimibe 2021-0 Yes [id number] 10mg Take 1 U nivers 10 mg 3-08 tablet by ity of tablet 00:00: mouth [place] 00 daily. Medical Branch ezetimibe 2021-0 Yes [id number] 10mg Take 1 Un brendan 10 mg 3-08 tablet by ity of tablet 00:00: mouth [place] 00 daily. Medical Branch ezetimibe 2021-0 Yes [id number] 10mg Take 1 Un brendan 10 mg 3-08 tablet by ity of tablet 00:00: mouth [place] 00 daily. Medical Branch ezetimibe 2021-0 Yes [id number] 10mg Take 1 Un brendan 10 mg 3-08 tablet by ity of tablet 00:00: mouth [place] 00 daily. Medical Branch ezetimibe 2021-0 Yes [id number] 10mg Take 1 Un brendan 10 mg 3-08 tablet by ity of tablet 00:00: mouth [place] 00 daily. Medical Branch ezetimibe 2021-0 Yes [id number] 10mg Take 1 Un brendan 10 mg 3-08 tablet by ity of tablet 00:00: mouth [place] 00 daily. Medical Branch ezetimibe 2021-0 Yes [id number] 10mg Take 1 Un brendan 10 mg 3-08 tablet by ity of tablet 00:00: mouth [place] 00 daily. Medical Branch ezetimibe 2021-0 Yes [id number] 10mg Take 1 Un brendan 10 mg 3-08 tablet by ity of tablet 00:00: mouth [place] 00 daily. Medical Branch ezetimibe 2021-0 Yes [id number] 10mg Take 1 Un brendan 10 mg 3-08 tablet by ity of tablet 00:00: mouth [place] 00 daily. Medical Branch pravastatin 0 2023- No 10mg Take 1 Uni vers 10 mg 3-08 02-06 tablet by ity of tablet 00:00: 00:00 mouth at [place] 00 :00 bedtime. Medical Branch RESVERATROL 0 Yes Take by Uni vers -QUERCETIN 2-18 mouth. ity of ORAL 10:10: [address] RESVERATROL 0 Yes Take by Uni vers -QUERCETIN 2-18 mouth. ity of ORAL 10:10: [address] RESVERATROL 0 Yes Take by Uni vers -QUERCETIN 2-18 mouth. ity of ORAL 10:10: [address] RESVERATROL 0 Yes Take by Uni vers -QUERCETIN 2-18 mouth. ity of ORAL 10:10: [address] RESVERATROL 0 Yes Take by Uni vers -QUERCETIN 2-18 mouth. ity of ORAL 10:10: [address] RESVERATROL 0 Yes Take by Uni vers -QUERCETIN 2-18 mouth. ity of ORAL 10:10: [address] RESVERATROL 0 Yes Take by Uni vers -QUERCETIN 2-18 mouth. ity of ORAL 10:10: [address] RESVERATROL 0 Yes Take by Uni vers -QUERCETIN 2-18 mouth. ity of ORAL 10:10: [address] RESVERATROL 2021-0 Yes Take by Uni vers -QUERCETIN 2-18 mouth. ity of ORAL 10:10: [address] RESVERATROL 2021-0 Yes Take by Uni vers -QUERCETIN 2-18 mouth. ity of ORAL 10:10: [address] Immunizations Ordered Filled Immunization Date Status Comments [facility] e Immunization Name Name Pneumococcal 20 2022-08-01 Completed Universit y of Conjugate, PCV20 00:00:00 [place] [facility] (Prevnar 20) Branch Pneumococcal 20 2022-08-01 Completed Universit y of Conjugate, PCV20 00:00:00 [facility] dical (Prevnar 20) Branch Pneumococcal 20 2022-08-01 Completed Universit y of Conjugate, PCV20 00:00:00 [facility] dical (Prevnar 20) Branch Pneumococcal 20 2022-08-01 Completed Universit y of Conjugate, PCV20 00:00:00 [facility] dical (Prevnar 20) Branch Pneumococcal 20 2022-08-01 Completed Universit y of Conjugate, PCV20 00:00:00 [facility] dical (Prevnar 20) Branch Pneumococcal 20 2022-08-01 Completed Universit y of Conjugate, PCV20 00:00:00 [facility] dical (Prevnar 20) Branch Pneumococcal 20 2022-08-01 Completed Universit y of Conjugate, PCV20 00:00:00 [facility] dical (Prevnar 20) Branch Pneumococcal 20 2022-08-01 Completed Universit y of Conjugate, PCV20 00:00:00 [facility] dical (Prevnar 20) Branch Pneumococcal 20 2022-08-01 Completed Universit y of Conjugate, PCV20 00:00:00 [facility] dical (Prevnar 20) Branch Pneumococcal 20 2022-08-01 Completed Universit y of Conjugate, PCV20 00:00:00 [facility] dical (Prevnar 20) Branch Pneumococcal 20 2022-08-01 Completed Universit y of Conjugate, PCV20 00:00:00 [facility] dical (Prevnar 20) Branch Pneumococcal 2021-03-26 Completed University o f Polysaccharide, 00:00:00 [place] Med ical PPSV23 (PNEUMOVAX) Branch TDAP 2021-03-26 Completed University of 00:00:00 [facility] [place] Pneumococcal 2021-03-26 Completed University o f Polysaccharide, 00:00:00 [place] Med ical PPSV23 (PNEUMOVAX) Branch TDAP 2021-03-26 Completed University of 00:00:00 [facility] [place] Pneumococcal 2021-03-26 Completed University o f Polysaccharide, 00:00:00 [place] Med ical PPSV23 (PNEUMOVAX) Branch TDAP 2021-03-26 Completed University of 00:00:00 [facility] [place] Pneumococcal 2021-03-26 Completed University o f Polysaccharide, 00:00:00 [place] Med ical PPSV23 (PNEUMOVAX) Branch TDAP 2021-03-26 Completed University of 00:00:00 [facility] [place] Pneumococcal 2021-03-26 Completed University o f Polysaccharide, 00:00:00 [place] Med ical PPSV23 (PNEUMOVAX) Branch TDAP 2021-03-26 Completed University of 00:00:00 [facility] [place] Pneumococcal 2021-03-26 Completed University o f Polysaccharide, 00:00:00 [place] Med ical PPSV23 (PNEUMOVAX) Branch TDAP 2021-03-26 Completed University of 00:00:00 [facility] [place] Pneumococcal 2021-03-26 Completed University o f Polysaccharide, 00:00:00 [place] Med ical PPSV23 (PNEUMOVAX) Branch TDAP 2021-03-26 Completed University of 00:00:00 [facility] [place] Pneumococcal 2021-03-26 Completed University o f Polysaccharide, 00:00:00 [place] Med ical PPSV23 (PNEUMOVAX) Branch TDAP 2021-03-26 Completed University of 00:00:00 [facility] [place] Pneumococcal 2021-03-26 Completed University o f Polysaccharide, 00:00:00 [place] Med ical PPSV23 (PNEUMOVAX) Branch TDAP 2021-03-26 Completed University of 00:00:00 [facility] [place] Pneumococcal 2021-03-26 Completed University o f Polysaccharide, 00:00:00 [place] [facility] ical PPSV23 (PNEUMOVAX) Branch TDAP 2021-03-26 Completed University of 00:00:00 [facility] [place] Pneumococcal 2021-03-26 Completed University o f Polysaccharide, 00:00:00 [place] Med ical PPSV23 (PNEUMOVAX) Branch TDAP 2021-03-26 Completed University of 00:00:00 [facility] Pneumococcal 2021-03-26 Completed University o f Polysaccharide, 00:00:00 [place] [facility] ical PPSV23 (PNEUMOVAX) Branch TDAP 2021-03-26 Completed University of 00:00:00 [facility] [place] Pneumococcal 2021-03-26 Completed University o f Polysaccharide, 00:00:00 [place] [facility] ical PPSV23 (PNEUMOVAX) Branch TDAP 2021-03-26 Completed University of 00:00:00 [facility] [place] Pneumococcal 2021-03-26 Completed University o f Polysaccharide, 00:00:00 [place] Med ical PPSV23 (PNEUMOVAX) Branch TDAP 2021-03-26 Completed University of 00:00:00 [facility] Pneumococcal 2021-03-26 Completed University o f Polysaccharide, 00:00:00 [place] [facility] ical PPSV23 (PNEUMOVAX) Branch TDAP 2021-03-26 Completed University of 00:00:00 [facility] Pneumococcal 2021-03-26 Completed University o f Polysaccharide, 00:00:00 [place] [facility] ical PPSV23 (PNEUMOVAX) Branch TDAP 2021-03-26 Completed University of 00:00:00 [facility] Pneumococcal 2021-03-26 Completed University o f Polysaccharide, 00:00:00 [place] Med ical PPSV23 (PNEUMOVAX) Branch TDAP 2021-03-26 Completed University of 00:00:00 [facility] Pneumococcal 2021-03-26 Completed University o f Polysaccharide, 00:00:00 [place] [facility] ical PPSV23 (PNEUMOVAX) Branch TDAP 2021-03-26 Completed University of 00:00:00 [facility] Pneumococcal 2021-03-26 Completed University o f Polysaccharide, 00:00:00 [place] Med ical PPSV23 (PNEUMOVAX) Branch TDAP 2021-03-26 Completed University of 00:00:00 [facility] Pneumococcal 2021-03-26 Completed University o f Polysaccharide, 00:00:00 [place] Med ical PPSV23 (PNEUMOVAX) Branch TDAP 2021-03-26 Completed University of 00:00:00 [facility] Pneumococcal 2021-03-26 Completed University o f Polysaccharide, 00:00:00 [place] [facility] ical PPSV23 (PNEUMOVAX) Branch TDAP 2021-03-26 Completed University of 00:00:00 [facility] Pneumococcal 2021-03-26 Completed University o f Polysaccharide, 00:00:00 [place] [facility] ical PPSV23 (PNEUMOVAX) Branch TDAP 2021-03-26 Completed University of 00:00:00 [facility] Pneumococcal 2021-03-26 Completed University o f Polysaccharide, 00:00:00 [place] [facility] ical PPSV23 (PNEUMOVAX) Branch TDAP 2021-03-26 Completed University of 00:00:00 [facility] Pneumococcal 2021-03-26 Completed University o f Polysaccharide, 00:00:00 [place] Med ical PPSV23 (PNEUMOVAX) Branch TDAP 2021-03-26 Completed University of 00:00:00 [facility] Pneumococcal 2021-03-26 Completed University o f Polysaccharide, 00:00:00 [place] [facility] ical PPSV23 (PNEUMOVAX) Branch TDAP 2021-03-26 Completed University of 00:00:00 [facility] Pneumococcal 2021-03-26 Completed University o f Polysaccharide, 00:00:00 [place] Med ical PPSV23 (PNEUMOVAX) Branch TDAP 2021-03-26 Completed University of 00:00:00 [facility] Pneumococcal 2021-03-26 Completed University o f Polysaccharide, 00:00:00 [place] Med ical PPSV23 (PNEUMOVAX) Branch TDAP 2021-03-26 Completed University of 00:00:00 [facility] Pneumococcal 2021-03-26 Completed University o f Polysaccharide, 00:00:00 [place] [facility] ical PPSV23 (PNEUMOVAX) Branch TDAP 2021-03-26 Completed University of 00:00:00 [facility] Pneumococcal 2021-03-26 Completed University o f Polysaccharide, 00:00:00 [place] Med ical PPSV23 (PNEUMOVAX) Branch TDAP 2021-03-26 Completed University of 00:00:00 [facility] Pneumococcal 2021-03-26 Completed University o f Polysaccharide, 00:00:00 [place] [facility] ical PPSV23 (PNEUMOVAX) Branch TDAP 2021-03-26 Completed University of 00:00:00 [facility] Pneumococcal 2021-03-26 Completed University o f Polysaccharide, 00:00:00 [place] [facility] ical PPSV23 (PNEUMOVAX) Branch TDAP 2021-03-26 Completed University of 00:00:00 [facility] Pneumococcal 2021-03-26 Completed University o f Polysaccharide, 00:00:00 [place] [facility] ical PPSV23 (PNEUMOVAX) Branch TDAP 2021-03-26 Completed University of 00:00:00 [facility] Pneumococcal 2021-03-26 Completed University o f Polysaccharide, 00:00:00 [place] [facility] ical PPSV23 (PNEUMOVAX) Branch TDAP 2021-03-26 Completed University of 00:00:00 [facility] Pneumococcal 2021-03-26 Completed University o f Polysaccharide, 00:00:00 [place] [facility] ical PPSV23 (PNEUMOVAX) Branch TDAP 2021-03-26 Completed University of 00:00:00 [facility] Pneumococcal 2021-03-26 Completed University o f Polysaccharide, 00:00:00 [place] [facility] ical PPSV23 (PNEUMOVAX) Branch TDAP 2021-03-26 Completed University of 00:00:00 [facility] Pneumococcal 2021-03-26 Completed University o f Polysaccharide, 00:00:00 [place] [facility] ical PPSV23 (PNEUMOVAX) Branch TDAP 2021-03-26 Completed University of 00:00:00 [facility] Pneumococcal 2021-03-26 Completed University o f Polysaccharide, 00:00:00 [place] [facility] ical PPSV23 (PNEUMOVAX) Branch TDAP 2021-03-26 Completed University of 00:00:00 [facility] Pneumococcal 2021-03-26 Completed University o f Polysaccharide, 00:00:00 [place] [facility] ical PPSV23 (PNEUMOVAX) Branch TDAP 2021-03-26 Completed University of 00:00:00 [facility] Pneumococcal 2021-03-26 Completed University o f Polysaccharide, 00:00:00 [place] [facility] ical PPSV23 (PNEUMOVAX) Branch TDAP 2021-03-26 Completed University of 00:00:00 [facility] Vital Signs Vital Name Observation Time Observation Value Comments Source Systolic blood 2022-08-13 21:00:00 139 mm[Hg] Univer sity of pressure [facility] Diastolic blood 2022-08-13 21:00:00 65 mm[Hg] Unive rsity of pressure [facility] Heart rate 2022-08-13 21:00:00 64 /min [facility] Respiratory rate 2022-08-13 21:00:00 22 /min [facility] Oxygen saturation in 2022-08-13 21:00:00 96 /min [facility] Arterial blood by [facility] Pulse oximetry [place] Body temperature 2022-08-13 16:51:00 36.72 [facility] Body height 2022-08-13 16:51:00 175.3 cm [facility] Body weight 2022-08-13 16:51:00 101.606 kg [facility] BMI 2022-08-13 16:51:00 33.08 kg/m2 [facility] Systolic blood 2022-08-01 16:22:00 142 mm[Hg] [facility] Diastolic blood 2022-08-01 16:22:00 64 mm[Hg] [facility]ive [facility] Heart rate 2022-08-01 16:13:00 67 /min [facility] Body height 2022-08-01 16:13:00 175.3 cm [facility] Body weight 2022-08-01 16:13:00 103.42 kg [facility] BMI 2022-08-01 16:13:00 33.67 kg/m2 [facility] Oxygen saturation in 2022-08-01 16:13:00 94 /min [facility] Arterial blood by [place] [facility] romina Pulse oximetry Branch Body temperature 2022-07-24 15:20:00 36.28 Bessie [facility] Body height 2022-07-24 15:20:00 175.3 cm [facility] Body weight 2022-07-24 15:20:00 103.783 kg [facility] BMI 2022-07-24 15:20:00 33.79 kg/m2 [facility] Systolic blood 2022-07-10 21:03:00 145 mm[Hg] [facility] Diastolic blood 2022-07-10 21:03:00 73 mm[Hg] [facility] Heart rate 2022-07-10 21:03:00 70 /min [facility] Respiratory rate 2022-07-10 21:03:00 18 /min [facility] Oxygen saturation in 2022-07-10 21:03:00 94 /min [facility] Arterial blood by [place] [facility] Pulse oximetry Branch Body temperature 2022-07-10 21:00:00 36.28 Bessie [facility] Body height 2022-07-10 21:00:00 175.3 cm [facility] Body weight 2022-07-10 21:00:00 103.284 kg [facility] BMI 2022-07-10 21:00:00 33.63 kg/m2 [facility] Systolic blood 2022-06-17 21:00:00 149 mm[Hg] [facility] Diastolic blood 2022-06-17 21:00:00 72 mm[Hg] [facility] Heart rate 2022-06-17 20:59:00 71 /min [facility] Body temperature 2022-06-17 20:59:00 36.5 Bessie [facility] Body height 2022-06-17 20:59:00 175.3 cm [facility] Body weight 2022-06-17 20:59:00 102.967 kg [facility] BMI 2022-06-17 20:59:00 33.52 kg/m2 [facility] Oxygen saturation in 2022-06-17 20:59:00 95 /min [facility] Arterial blood by [place] [facility] Pulse oximetry Branch Systolic blood 2022-03-04 15:03:00 141 mm[Hg] [facility] Diastolic blood 2022-03-04 15:03:00 78 mm[Hg] [facility] Heart rate 2022-03-04 14:58:00 73 /min [facility] Body height 2022-03-04 14:58:00 175.3 cm [facility] Body weight 2022-03-04 14:58:00 104.01 kg [facility] BMI 2022-03-04 14:58:00 33.86 kg/m2 [facility] Oxygen saturation in 2022-03-04 14:58:00 94 /min [facility] Arterial blood by [place] [facility] Pulse oximetry Branch Systolic blood 2022-01-22 20:50:00 126 mm[Hg] [facility] Diastolic blood 2022-01-22 20:50:00 67 mm[Hg] [facility] Heart rate 2022-01-22 20:50:00 77 /min [facility] Body temperature 2022-01-22 20:50:00 36.22 Bessie [facility] Respiratory rate 2022-01-22 20:50:00 18 /min [facility] [place] [facility] [place] Body height 2022-01-22 20:50:00 175.3 cm [facility] Body weight 2022-01-22 20:50:00 103.057 kg [facility] BMI 2022-01-22 20:50:00 33.55 kg/m2 [facility] [place] [facility] [place] Oxygen saturation in 2022-01-22 20:50:00 94 /min [facility] Arterial blood by [facility] Pulse oximetry Branch Systolic blood 2021-12-25 20:24:00 137 mm[Hg] [facility] [place] [facility] [place] Diastolic blood 2021-12-25 20:24:00 81 mm[Hg] [facility] [place] Heart rate 2021-12-25 20:23:00 70 /min [facility] [place] [facility] [place] Body temperature 2021-12-25 20:23:00 36.61 Bessie [facility] [place] [facility] [place] Body height 2021-12-25 20:23:00 175.3 cm [facility] Body weight 2021-12-25 20:23:00 104.69 kg [facility] BMI 2021-12-25 20:23:00 34.08 kg/m2 [facility] Oxygen saturation in 2021-12-25 20:23:00 96 /min [facility] Arterial blood by [facility] Pulse oximetry Branch Procedures Procedure Date / Time Performing Clinician Source Performed TROPONIN I 2022-08-13 19:40:00 Jona Persaud [facility] CT THORACIC SPINE WO 2022-08-13 19:25:59 Jona Persaud [facility] CONTRAST [facility] XR CHEST 1 VW 2022-08-13 17:54:05 Jona Persaud [facility] LIPASE 2022-08-13 17:43:00 Jona Persaud [facility] TROPONIN I 2022-08-13 17:43:00 Jona Persaud [facility] FREE T4 2022-08-13 17:43:00 Jona Persaud [facility] COMP. METABOLIC PANEL 2022-08-13 17:43:00 Jona Persaud [facility] ([id number]) Medical Branch CBC WITH DIFF 2022-08-13 17:43:00 Hung Jona [facility] PROTHROMBIN TIME / INR 2022-08-13 17:43:00 Jona Persaud [facility] D-DIMER 2022-08-13 17:43:00 Hung [facility] ACTIVATED PARTIAL 2022-08-13 17:43:00 Hung [facility] THRMPLAS OCSTA [facility] URINALYSIS 2022-08-13 17:43:00 Hung [facility] N-TERMINAL PRO-BNP 2022-08-13 17:43:00 Jona Persaud [facility] CONSENT/REFUSAL FOR 2022-08-13 16:40:32 Doctor Unajorge alberto, [facility] DIAGNOSIS AND TREATMENT [facility] [place] COMP. METABOLIC PANEL 2022-08-02 12:51:00 Nella Cartagena [facility] ([id number]) Medical Branch CBC WITH DIFF 2022-08-02 12:51:00 Nella Cartagena [facility] PHYSICIAN CERTIFICATION 2022-08-02 05:01:00 Doctor Eros, [facility] STATEMENT [facility] PNEUMOCOCCAL 20 CONJUGATE 2022-08-01 16:32:50 Nella Cartagena [facility] (PREVNAR 20) VACCINE Medical [facility] HB ECG ROUTINE & RHYTHM 2022-07-10 21:06:31 Dona Lanza [facility] PATIENT FINANCIAL 2022-07-10 20:49:27 [facility] HEAD WO CONTRAST 2022-06-21 22:26:00 Nella Cartagena [facility] ASSIGNMENT OF BENEFITS 2022-06-21 21:52:33 Doctor Unassestrella, [facility] Name Medical Branch MEDICATION CORRESPONDENCE 2022-06-19 06:01:00 Doctor Eros, [facility] CT LOW DOSE LUNG NODULE 2022-04-18 16:00:00 Nella [facility] THORAX WO CONTRAST 2022-01-17 18:10:15 Radhika [facility] Encounters Start End Encounter Admission Attending Care Care Encounter Source Date/Time Date/Time Type Type Clinicians Facility Department ID 2021-03-06 Emergency [facility] [id number] Univers 05:04:40 ity [facility] 2021-03-02 Emergency [facility] [id number] Univers 14:02:35 ity [facility] 2023-01-28 2023-01-28 Outpatient R MITZI [facility] [id number] Univers 10:00:00 10:00:00 NELLA andino [facility] 2022-10-10 2022-10-10 [facility] [id number] Univers 13:20:00 13:20:00 DONA andino o f [facility] 2022-08-13 2022-08-13 [facility] [id number] Univers 11:52:00 16:07:00 JONA andino [facility] 2022-08-13 2022-08-13 Emergency [facility] 1.2.772.218 [id number] Univers 11:52:00 16:07:00 Jona CARABALLO 350.1.13.10 i ty [facility] 4.2.7.2.686 [facility] [id number] [facility] [address] [place] 2022-08-12 2022-08-12 Fish Processing Supervisor Rosanna, [facility] Sleep Lab [facility] 1.2 .840.114 [id number] Univers 13:00:00 13:15:00 Visit Kiko Sinclair 350.1.13. 10 ity [facility] 4.2.7.2.686 [facility] [id number] [facility] 193 Branch 2022-08-12 2022-08-12 Outpatient R KIKO SINCLAIR [facility] [id number] Univers 13:00:00 13:00:00 KIKO SINCLAIR [facility] 2022-08-09 2022-08-09 [facility] 1.2.832.739 [id number] Univers 00:00:00 00:00:00 Nella HEALTH 350.1.13.10 it y of [place] 4.2.7.2.686 Yonatan as JOHANA?BLEA [id number] La antwon OROURKE 044 [facility] OFFICE [facility] 2022-08-08 2022-08-08 Outpatient R MITZI [facility] [id number] Univers 00:00:00 00:00:00 NELLA andino [facility] 2022-08-02 2022-08-02 [facility] [id number] Univers 10:30:00 10:30:00 NELLA andino [facility] 2022-08-02 2022-08-02 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, Ang - Db [facility] 1.2.840.1 14 [id number] Univers 07:45:00 08:00:00 Visit Dayami Cartagenaandrea KABA 350.1.13.10 ity of [place] 4.2.7.2.686 Yonatan as JOHANA?BLEA [id number] La rajeshia SPARKLE 353 [facility] OFFICE [facility] 2022-08-02 2022-08-02 Outpatient R MITZI [facility] [id number] Univers 07:45:00 07:45:00 NELLA andino [facility] 2022-08-02 2022-08-02 Pre Visit GET Leon 1.2.672.810 [id number] Univers 00:00:00 00:00:00 Outreach Michelle ALBA 350.1.13.10 ity of [facility] 4.2.7.2.686 Yonatan as [id number] [address] 2022-08-02 2022-08-02 Telephone Mitzi [facility] 1.2.198.714 [id number] Univers 00:00:00 00:00:00 Nella HEALTH 350.1.13.10 it y of [place] 4.2.7.2.686 Yonatan as JOHANA?BLEA [id number] La antwon VILLAGRAN 044 [facility] OFFICE [facility] 2022-08-02 2022-08-02 Orders Doctor DEUTSCH 1.2.840.114 [id number] Univers 00:00:00 00:00:00 Only Unassigned, PARTH 350.1.13.10 ity of [place] [facility] 4.2.7.2.686 Yonatan as [id number] [facility] 009 Branch 2022-08-01 2022-08-01 Outpatient R MITZI [facility] [id number] Univers 11:30:00 11:50:09 NELLA andino [facility] 2022-08-01 2022-08-01 Office [facility] 1.2.840.114 [id number] Univers 11:30:00 11:50:09 Visit [facility] 350.1.13.10 it y of [place] 4.2.7.2.686 Yonatan as JOHANA?BLEA [id number] La dical KNEY [address] [place] MEDICAL OFFICE BUILDING 2022-07-31 2022-07-31 [facility] [id number] Univers 12:45:16 23:59:00 DONA andino o [facility] 2022-07-24 2022-07-24 Outpatient R MARLI [facility] [id number] Univers 10:45:00 10:59:41 [facility] 2022-07-24 2022-07-24 Office [facility] 1.2.995.024 [id number] Univers 10:45:00 10:59:41 Visit Barbara Rose RAMÍREZ 350.1.13.10 ity [facility] [place].2.[place] [id number] [facility] [address] [place] 2022-07-10 2022-07-10 Outpatient R SAURABH [facility] [id number] Univers 15:00:00 15:22:54 DONA andino o [facility] 2022-07-10 2022-07-10 Office [facility] 1.2.840.114 [id number] Univers 15:00:00 15:22:54 Visit Dona CARABALLO 350.1.13.10 ity [facility] 4.2.7.2.[place] [id number] La dical NAL 059 [facility] 2022-07-10 2022-07-10 [facility] [id number] Univers 15:00:00 15:00:00 DONA smallsy o f [facility] 2022-07-10 2022-07-10 Outpatient R SAURABH, [facility] [id number] Univers 15:00:00 15:00:00 DONA smallsy o f [facility] 2022-07-10 2022-07-10 Outpatient R SAURABH, [facility] [id number] Univers 15:00:00 15:00:00 DONA smallsy o f [facility] 2022-07-10 2022-07-10 Outpatient R SAURABH, [facility] [id number] Univers 15:00:00 15:00:00 DONA smallsy o [facility] 2022-07-10 2022-07-10 Orders Doctor GET 1.2.840.114 [id number] Univers 00:00:00 00:00:00 Only Unassigned, PARTH 350.1.13.10 ity of [place] [facility] 4.2.7.2.686 Yonatan as [id number] [facility] [address] [place] 2022-06-24 2022-06-24 Patient [facility] 1.2.840.114 [id number] Univers 00:00:00 00:00:00 Secure Msg Nella HEALTH 350.1.13.10 ity of [place] 4.2.7.2.686 Yonatan as JOHANA?BLEA [id number] [address] MEDICAL OFFICE BUILDING 2022-06-21 2022-06-21 Outpatient [facility] [id number] Univers 15:57:42 23:59:00 NELLA ity of [facility] 2022-06-21 2022-06-21 [facility] 1.2.840.114 [id number] Univers 15:57:42 23:59:00 Encounter Nella CARABALLO 350.1.13.10 ity of [place] 4.2.7.2.686 [place] [facility] [id number] [facility] [address] [place] 2022-06-21 2022-06-21 Telephone [facility] 1.2.262.731 [id number] Univers 00:00:00 00:00:00 Nella HEALTH 350.1.13.10 it y of [place] 4.2.7.2.686 Yonatan as JOHANA?BLEA [id number] [address] OFFICE [facility] 2022-06-21 2022-06-21 Orders Doctor GET 1.2.840.114 [id number] Univers 00:00:00 00:00:00 Only Unassigned, PARTH 350.1.13.10 ity of [place] [facility] 4.2.7.2.686 Yonatan as [id number] [address] 2022-06-19 2022-06-19 Orders Doctor GET 1.2.840.114 [id number] Univers 00:00:00 00:00:00 Only Unassigned, PARTH 350.1.13.10 ity of [place] [facility] 4.2.7.2.686 Yonatan as [id number] [address] 2022-06-17 2022-06-17 [facility] [id number] Univers 14:30:00 15:21:56 NELLA ity [facility] 2022-06-17 2022-06-17 Office [facility] 1.2.840.114 [id number] Univers 14:30:00 15:21:56 Visit [facility] 350.1.13.10 it y of [place] 4.2.7.2.686 Yonatan as JOHANA?BLEA [id number] [address] OFFICE [facility] 2022-06-10 2022-06-10 [facility] 1.2.840.114 [id number] Univers 00:00:00 00:00:00 Dona RASHMI 350.1.13.10 ity of [place].2.7.2.[place] [id number] [facility] 059 [facility] 2022-04-18 2022-04-18 Outpatient [facility] [id number] Univers 09:44:05 23:59:00 NELLA ity [facility] 2022-04-18 2022-04-18 [facility] 1.2.840.114 [id number] Univers 09:44:05 23:59:00 Encounter Nella CARABALLO 350.1.13.10 ity of [place]2.7.2.[place] [id number] [facility] [address] [place] 2022-03-20 2022-03-20 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, Ang - Db [facility] 1.2.840.1 14 [id number] Univers 09:00:00 09:15:00 Visit Nella Cartagena 350.1.13.10 ity of [place] 4.2.7.2.686 Yonatan as JOHANA?BLEA [id number] [address] MEDICAL OFFICE [facility] 2022-03-20 2022-03-20 Outpatient [facility] [id number] Univers 09:00:00 09:00:00 NELLA ity [facility] 2022-03-10 2022-03-10 Telephone TRELL Cartagena 1.2.840.114 [id number] Univers 00:00:00 00:00:00 Nella Chatterjee HEALTH 350.1.13.10 i ty of [place]2.7.2.[place] [id number] [address] 2022-03-04 2022-03-04 Outpatient [facility] [id number] Univers 09:30:00 10:33:05 NELLA ity of [facility] 2022-03-04 2022-03-04 Office [facility] 1.2.840.114 [id number] Univers 09:30:00 10:33:05 Visit Nella HEALTH 350.1.13.10 it y of [place] 4.2.7.2.686 Yonatan as JOHANA?BLEA [id number] [address] MEDICAL OFFICE [facility] 2022-03-01 2022-03-01 Letter TRELL Cartagena 1.2.920.281 [id number] Univers 00:00:00 00:00:00 (Out) Nella Chatterjee HEALTH 350.1.13.10 i ty of [place].2.[place] [id number] [address] 2022-02-12 2022-02-12 Letter TRELL Cartagena 1.2.729.849 [id number] Univers 00:00:00 00:00:00 (Out) Nella Y HEALTH 350.1.13.10 i ty of [place].2.[place] [id number] [address] 2022-02-01 2022-02-01 [facility] 1.2.840.114 [id number] Univers 00:00:00 00:00:00 Garthblanca RASHMI 350.1.13.10 ity of [place] 4.2.7.2.686 [place] [id number] La dicia NAL 059 [facility] 2022-01-28 2022-01-28 Refkevin [facility] 1.2.840.114 [id number] Univers 00:00:00 00:00:00 Qiacolton CARABALLO 350.1.13.10 ity of [place] 4.2.7.2.686 [place] [id number] La dicia NAL 059 [facility] 2022-01-25 2022-01-25 Letter TRELL Cartagena 1.2.015.587 [id number] Univers 00:00:00 00:00:00 (Out) Nella Y HEALTH 350.1.13.10 i ty of [place].2.[place] [id number] [address] 2022-01-22 2022-01-22 Outpatient [facility] [id number] Univers 15:30:00 16:28:55 RANDI andino [facility] 2022-01-22 2022-01-22 Office [facility] 1.2.831.433 [id number] Univers 15:30:00 16:28:55 Visit Randi CARABALLO 350.1.13.10 i ty of [place] 4.2.7.2.686 [place] [id number] [facility] 188 [facility] 2022-01-21 2022-01-21 Patient [facility] 1.2.840.114 [id number] Univers 00:00:00 00:00:00 Secure [facility] HEALTH 350.1.13.10 ity of [place] 4.2.7.2.686 Yonatan as JOHANA?BLEA [id number] La antwon OROURKE [address] [place] MEDICAL OFFICE [facility] 2022-01-17 2022-01-17 Outpatient [facility] [id number] Univers 12:57:06 23:59:00 [facility] 2022-01-17 2022-01-17 [facility] 1.2.840.114 [id number] Univers 12:57:06 23:59:00 Encounter [facility] 350.1.13.10 ity of [facility] 4.2.7.2.686 [place] [id number] [address] 2022-01-14 2022-01-14 Outpatient R [facility] [id number] Univers 00:00:00 00:00:00 [facility] 2022-01-08 2022-01-08 [facility] 1.2.840.114 [id number] Univers 00:00:00 00:00:00 Garthblanca [place] 350.1.13.10 ity [facility] 4.2.7.2.686 [place] [id number] La antwon SCHAEFFER 059 [facility] 2021-12-25 2021-12-25 Outpatient R [facility] [id number] Univers 15:48:16 23:59:00 [facility] 2021-12-25 2021-12-25 Outpatient R [facility] [id number] Univers 15:48:40 15:48:40 [facility] 2021-12-25 2021-12-25 Office [facility] 1.2.840.114 [id number] Univers 15:40:00 15:45:56 Visit [facility] 350.1.13.10 ity of [place] 4.2.7.2.686 Yonatan as JOHANA?BLEA [id number] La antwon OROURKE [address] [place] MEDICAL OFFICE [facility] 2021-12-20 2021-12-20 Telephone [facility] 1.2.138.568 [id number] Univers 00:00:00 00:00:00 [facility] 350.1.13.10 ity of [place] 4.2.7.2.686 Yonatan as JOHANA?BLEA [id number] [address] OFFICE [facility] 2021-12-13 2021-12-13 Outpatient [facility] [id number] Univers 10:20:00 11:13:42 RADHIKA ity [facility] 2021-12-13 2021-12-13 Office [facility] 1.2.840.114 [id number] Univers 10:20:00 11:13:42 Visit [facility] 350.1.13.10 ity of [place] 4.2.7.2.686 Yonatan as JOHANA?BLEA [id number] [address] OFFICE [facility] 2021-12-13 2021-12-13 Outpatient [facility] [id number] Univers 10:20:00 11:13:42 RADHIKA ity [facility] 2021-10-31 2021-10-31 Telephone [facility] 1..286.132 [id number] Univers 00:00:00 00:00:00 Qiacolton [place] 350.1.13.10 ity [facility] 4.2.7.2.686 [place] [id number] [address] 2021-09-21 2021-09-21 Outpatient R BETTE [facility] [id number] Univers 10:30:00 10:30:00 LYCIA ity [facility] 2021-09-18 2021-09-18 Telephone [facility] 1..259.067 [id number] Univers 00:00:00 00:00:00 Qiacolton [place] 350.1.13.10 ity of [place] 4.2.7.2.686 [place] [id number] [address] 2021-09-06 2021-09-06 Patient Mp [facility] 1.2.840.114 [id number] Univers 00:00:00 00:00:00 Secure [facility] 350.1.13.10 ity of [place] 4.2.7.2.686 Yonatan as JOHANA?BLEA [id number] La antwon OROURKE 220 [facility] OFFICE [facility] 2021-09-04 2021-09-04 Telephone Saurabh, [facility] 1.2.703.348 [id number] Univers 00:00:00 00:00:00 Dona CARABALLO 350.1.13.10 ity of [place] 4.2.7.2.686 [place] [id number] La antwon NAL 059 [facility] 2021-08-27 2021-08-27 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, Ang - Db [facility] 1.2.840.1 14 [id number] Univers 12:30:00 12:45:00 Visit Mp [employer] 350.1.13.10 ity of [place] 4.2.7.2.686 Yonatan as JOHANA?BLEA [id number] La antwon OROURKE 353 [facility] OFFICE [facility] 2021-08-27 2021-08-27 Outpatient [facility] [id number] Univers 12:30:00 12:30:00 [facility] 2021-08-27 2021-08-27 Office [facility] 1.2.840.114 [id number] Univers 11:00:00 12:03:48 Visit [employer] 350.1.13.10 it y of [place] 4.2.7.2.686 Yonatan as JOHANA?BLEA [id number] La antwon OROURKE 220 [facility] OFFICE [facility] 2021-08-27 2021-08-27 Outpatient [facility] [id number] Univers 11:00:00 12:03:[address] [facility] 2021-08-02 2021-08-02 Outpatient R JOSELIN [facility] [id number] Univers 15:00:00 16:25:40 [facility] 2021-08-02 2021-08-02 Office TRELL Olivera 1.2.840.114 [id number] Univers 15:00:00 16:25:40 Visit [facility] 350.1.13.10 i ty of [facility] 4.2.7.2.[place] [id number] [address] 2021-08-02 2021-08-02 Outpatient R JOSELIN [facility] [id number] Univers 15:00:00 15:00:00 GREY slimrhonda [facility] 2021-07-28 2021-07-28 Telephone [facility] 1.2.637.737 [id number] Univers 00:00:00 00:00:00 Dona CARABALLO 350.1.13.10 ity of [place] 4.2.7.2.[place] [id number] La dical NAL 059 [facility] 2021-07-25 2021-07-25 [facility] [id number] Univers 11:00:00 11:00:00 DONA slimrhonda [facility] 2021-07-25 2021-07-25 [facility] [id number] Univers 09:58:51 09:59:00 GARTHBLANCA sina lee [facility] 2021-07-25 2021-07-25 [facility] [id number] Univers 08:30:00 08:30:00 ELISEOCOLTON slimrhonda howard [facility] 2021-07-23 2021-07-23 Outpatient R LELE [facility] [id number] Univers 10:30:00 11:14:36 RANDI sina [facility] 2021-07-23 2021-07-23 Office [facility] [id number] Univers 10:30:00 11:14:36 Visit Randi CARABALLO [id number] i ty [id number] [id number] La dical NAL 188 [facility] 2021-07-23 2021-07-23 Outpatient R LELE [facility] [id number] Univers 10:30:00 11:14:36 RANDI andino [facility] 2021-07-18 2021-07-18 [facility] [id number] Univers 09:30:00 11:01:08 LISA ity [facility] 2021-07-18 2021-07-18 Ancillary [facility] [id number] Univers 09:30:00 11:01:08 Visit Lisa Olivarez Tyrone CARABALLO 350.1.13.10 it[place] [phone] La dical NAL 179 [facility] 2021-07-18 2021-07-18 Out[facility] [id number] Univers 09:30:00 09:30:00 LISA andino [facility] 2021-07-18 2021-07-18 Orders Doctor GET 1.2.840.114 [id number] Univers 00:00:00 00:00:00 Only Unassigned, PARTH 350.1.13.10 ity of [place] [facility] 4.2.7.2.686 Yonatan as [phone] [address] 2021-07-10 2021-07-10 Outpatient [facility] [id number] Univers 14:40:00 15:15:57 DONA andino o f [facility] 2021-07-10 2021-07-10 Office [facility] 1.2.840.114 [id number] Univers 14:40:00 15:15:57 Visit Dona CARABALLO 350.1.13.10 it[place] [phone] La dical NAL 059 [facility] 2021-07-10 2021-07-10 Orders Doctor GET 1.2.840.114 [id number] Univers 00:00:00 00:00:00 Only Unassigned, PARTH 350.1.13.10 ity of [place] [facility] 4.2.7.2.686 Yonatan as [phone] [address] 2021-07-04 2021-07-04 [facility] 1.2.840.114 [id number] Univers 11:07:21 23:59:00 Encounter Matt CARABALLO 350.1.13.10 ity [facility] 4.2.[place].2.[place] [phone] [facility] [address] 2021-07-04 2021-07-04 Outpatient R BETTE [facility] [id number] Univers 11:06:47 11:06:00 LYCIA ity of [facility] 2021-07-04 2021-07-04 Hospital [facility] 1.2.840.114 [id number] Univers 11:00:00 11:06:00 Encounter Matt CARABALLO 350.1.13.10 ity of [facility] 4.2.[place].2.[place] [id number] [address] 2021-07-04 2021-07-04 Telephone [facility] 1.2.151.601 [id number] Univers 00:00:00 00:00:00 Lycia HEALTH 350.1.13.10 it y of [place] [id number] [address] OFFICE BUILDING 2021-07-03 2021-07-03 Telephone [facility] 1.2.840.114 [id number] Univers 00:00:00 00:00:00 Matt Chatterjee HEALTH 350.1.13.10 i ty of [place] [id number] [address] 2021-06-29 2021-06-29 Outpatient R LINNEA [facility] [id number] Univers 12:36:41 23:59:00 MISAEL slimy o f [facility] 2021-06-29 2021-06-29 [facility] 1.2.840.114 [id number] Univers 12:36:41 23:59:00 Encounter Misael PRIMARY 350.1.13.10 ity of [facility] 4.2.7.2.[place] [phone] [address] 2021-06-26 2021-06-26 Outpatient R MITZI [facility] [id number] Univers 15:23:40 23:59:00 NELLA andino [facility] 2021-06-26 2021-06-26 Hospital Mitzi [facility] 1.2.840.114 [id number] Univers 15:23:40 23:59:00 Encounter Nella CARABALLO 350.1.13.10 ity of [facility] 4.2.7.2.686 [facility] [phone] [facility] [address] 2021-06-26 2021-06-26 Outpatient R MITZI [facility] [id number] Univers 00:00:00 00:00:00 NELLA andino [facility] 2021-06-26 2021-06-26 Orders Doctor GET 1.2.840.114 [id number] Univers 00:00:00 00:00:00 Only Unassigned, PARTH 350.1.13.10 ity of [place] [facility] 4.2.7.2.686 Yonatan [phone] [place] [address] [address] 2021-06-22 2021-06-22 Outpatient Areli HI [facility] [id number] Univers 11:30:00 11:57:16 HAYDERАНДРЕЙ ity [facility] 2021-06-22 2021-06-22 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, Clc-Bls Lab [facility] 1.2.8 40.114 [id number] Univers 11:30:00 11:45:00 Visit Matt Hi 350.1.13.10 ity of [place] 4.2.7.2.686 [facility] [phone] [facility] [address] OFFICE BUILDING 2021-06-22 2021-06-22 Outpatient Areli HI [facility] [id number] Univers 10:00:00 11:14:37 HAYDERIA ity [facility] 2021-06-22 2021-06-22 Outpatient Areli HI [facility] [id number] Univers 10:00:00 11:14:37 HAYDERАНДРЕЙ ity [facility] 2021-06-22 2021-06-22 Office Bette [facility] 1.2.840.114 [id number] Univers 10:00:00 11:14:37 Visit Matt KABA 350.1.13.10 it y [place] [phone] [facility] [address] OFFICE BUILDING 2021-06-19 2021-06-19 Office [facility] 1.2.840.114 [id number] Univers 14:00:00 14:56:36 Visit Nella KABA 350.1.13.10 it y [place] 4.2.7.2.686 Yonatan as JOHANA?BLEA [phone] La rajeshlou OROURKE [address] MEDICAL OFFICE BUILDING 2021-06-19 2021-06-19 Outpatient [facility] [id number] Univers 14:00:00 14:00:00 NELLA andino [facility] 2021-06-15 2021-06-15 [facility] [id number] Univers 07:53:00 11:10:00 RANDI andino [facility] 2021-06-15 2021-06-15 [facility] 1.2.840.114 [id number] Univers 07:53:00 11:10:00 Encounter Randi HAROROBERT 350.1.13.10 ity of [facility] 4.2.7.2.[place]ICAL [phone] [facility] [address] 2021-06-15 2021-06-15 Out[facility] [id number] Univers 07:53:00 11:10:00 RANDI andino [facility] 2021-06-15 2021-06-15 Surgery [facility] 1.2.801.678 [id number] Univers 09:27:00 10:40:00 Randi CARABALLO 350.1.13.10 i ty of [facility] 4.2.7.2.[place] [phone] [facility] [address] 2021-06-15 2021-06-15 Orders Doctor DEUTSCH 1.2.840.114 [id number] Univers 00:00:00 00:00:00 Only Unassigned, PARTH 350.1.13.10 ity of [place] [facility] 4.2.7.2.686 Yonatan as [phone] [facility] [address] 2021-06-132021-06-13 Outpatient [facility] [id number] Univers 14:52:49 23:59:00 NELLA andino [facility] 2021-06-13 2021-06-13 Hospital [facility] 1.2.840.114 [id number] Univers 14:52:49 23:59:00 Encounter Nella RASHMI 350.1.13.10 ity of [place] 4.2.7.2.686 [facility] [phone] [facility] [address] 2021-06-12 2021-06-12 Laboratory Only, Adc Test [facility] 1.2.840. 114 [id number] Univers 13:00:00 13:15:00 Only Randi Royal 350.1.13.10 ity of [place] 4.2.7.2.686 [facility] [phone] [facility] [address] 2021-06-12 2021-06-12 Outpatient R LELE [facility] [id number] Univers 13:00:00 13:00:00 RANDI [facility] 2021-06-12 2021-06-12 Orders Doctor GET 1.2.840.114 [id number] Univers 00:00:00 00:00:00 Only Unassigned, PARTH 350.1.13.10 ity of [place] [facility] 4.2.7.2.686 Yonatan as [id number] [facility] [address] 2021-05-10 2021-05-10 Office [facility] 1.2.840.114 [id number] Univers 11:00:00 11:30:00 Visit Maria Alejandra A [facility] 350.1.13.10 i ty of [place] 4.2.7.2.686 Yonatan as JOHANA?BLEA [phone] La antwon OROURKE [address] [place] [address] MEDICAL OFFICE BUILDING 2021-05-10 2021-05-10 Outpatient [facility] [id number] Univers 11:00:00 11:00:00 MARIA ALEJANDRA sina [facility] 2021-05-10 2021-05-10 Outpatient [facility] [id number] Univers 11:00:00 11:00:00 MARIA ALEJANDRA andino [facility] 2021-05-08 2021-05-08 Office [facility] 1.2.302.527 [id number] Univers 14:00:00 15:07:52 Visit Randi RASHMI 350.1.13.10 i ty of [facility] 4.2.7.2.[place] [phone] La dical NAL 188 [facility] 2021-05-08 2021-05-08 Outpatient [facility] [id number] Univers 14:00:00 15:07:52 RANDI andino [facility] 2021-05-08 2021-05-08 Outpatient R [facility] [id number] Univers 14:00:00 14:00:00 RANDI rhonda [facility] 2021-05-08 2021-05-08 [facility] 1.2.840.114 [id number] Univers 00:00:00 00:00:00 Surgery Kallie CARABALLO 350.1.13.10 ity of [place] [id number] La dical NAL 204 [facility] 2021-05-01 2021-05-01 Nurse Therapy, Clc Covid Infusion [facility] 1.2.840.114 [id number] Univers 14:30:00 15:30:00 Visit Hermes Amos [facility] 350.1.13.10 ity of [place].2.[place] [phone] [facility] [address] OFFICE BUILDING 2021-05-01 2021-05-01 Outpatient [facility] [id number] Univers 14:30:00 14:30:00 HERMES [facility] 2021-05-01 2021-05-01 Orders Doctor GET 1.2.840.114 [id number] Univers 00:00:00 00:00:00 Only Unassigned, PARTH 350.1.13.10 ity of [place] [facility] 4.2.7.2.686 Yonatan as [id number] [place] [address] [address] 2021-04-30 2021-04-30 Emergency X , [facility] ERT [id number] Univers 12:38:00 15:13:00 BRICE andino of [facility] 2021-04-30 2021-04-30 Emergency [facility] 1.2.385.129 [id number] Univers 12:38:00 15:13:00 Brice CARABALLO 350.1.13.10 i ty of [place] 4.2.7.2.686 [facility] [id number] [facility] [address] 2021-04-30 2021-04-30 Emergency X , [facility] ERT [id number] Univers 12:38:00 15:13:00 BRICE slimrhonda of [facility] 2021-04-30 2021-04-30 Orders Doctor GET 1.2.840.114 [id number] Univers 00:00:00 00:00:00 Only Unassigned, PARTH 350.1.13.10 ity of [place] [facility] 4.2.7.2.686 Yonatan [phone] [facility] [address] 2021-04-23 2021-04-23 Outpatient [facility] [id number] Univers 14:20:00 14:20:00 NELLA andino of [facility] 2021-04-10 2021-04-10 [facility] 1.2.840.114 [id number] Univers 13:03:10 23:59:00 Encounter Nella RASHMI 350.1.13.10 ity [facility] 4.2.7.2.686 [facility] [id number] [facility] [address] 2021-04-10 2021-04-10 Outpatient [facility] [id number] Univers 12:58:59 13:02:00 NELLAANDREA andino of [facility] 2021-04-10 2021-04-10 [facility] 1.2.840.114 [id number] Univers 12:58:59 13:02:00 Encounter Nella RASHMI 350.1.13.10 ity [facility] 4.2.7.2.686 [facility] [id number] [facility] [address] 2021-03-272021-03-27 Refill [facility] 1.2.840.114 [id number] Univers 00:00:00 00:00:00 Dona CARABALLO 350.1.13.10 ity of [place].2.[place] [facility] [phone] La antwon MAKSIM 059 [facility] 2021-03-26 2021-03-26 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, 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 - Db [facility] 1.2.840.1 14 [id number] Univers 10:00:55 10:15:55 Visit [facility] 350.1.13.10 ity of [place] 4.2.7.2.686 Yonatan as JOHANA?BLEA [phone] La antwon OROURKE 353 [facility] OFFICE [facility] 2021-03-26 2021-03-26 Outpatient [facility] [id number] Univers 08:30:00 10:05:40 [facility] 2021-03-26 2021-03-26 Outpatient R MITZI [facility] [id number] Univers 08:30:00 10:05:40 NELLA rhonda [facility] 2021-03-26 2021-03-26 Office [facility] 1.2.840.114 [id number] Univers 08:23:29 10:05:40 Visit [facility] 350.1.13.10 it y [place] 4.2.7.2.686 Yonatan as JOHANA?BLEA [phone] La antwon VILLAGRAN [address] MEDICAL OFFICE [facility] 2021-03-15 2021-03-15 Outpatient R NEIL [facility] [id number] Univers 08:00:00 08:00:00 MARIA ALEJANDRA ity [facility] 2021-02-08 2021-02-08 Emergency Giovanna Howell [facility] 1.2.840.114 [id number] Univers 17:33:00 20:30:00 Irma Haroton 350.1.13.10 i ty of [place].2.[place] [phone] [facility] [address] 2021-02-08 2021-02-08 Orders Doctor GET 1.2.840.114 [id number] Univers 00:00:00 00:00:00 Only Unassigned, PARTH 350.1.13.10 ity of [place] [facility] 4.2.7.2.686 Yonatan as [id number] [place] [address] [address] 2021-02-08 2021-02-08 Telephone [facility] 1.2.995.546 [id number] Univers 00:00:00 00:00:00 Dona Caraballo 350.1.13.10 ity of [place] [id number] La dical [facility] 059 [facility] 2020-07-10 2020-07-10 Outpatient Areli LANZA [facility] [id number] Univers 11:40:00 11:40:00 DONA andino o f [facility] 2020-07-10 2020-07-10 Office [facility] 1.2.840.114 [id number] 10:58:44 11:18:44 Visit Dona Caraballo 350.1.13.10 [place] 4.2.7.2.686 Professio [id number] [facility] 059 [facility] 2020-01-13 2020-01-13 Outpatient Areli LANZA [facility] [id number] Univers 13:20:00 13:20:00 DONA andino o f [facility] 2019-11-05 2019-11-05 Outpatient Areli BLEVINS [facility] [id number] Univers 10:15:00 10:15:00 JULIANO andino [facility] 2019-10-06 2019-10-06 Outpatient Areli BLEVINS [facility] [id number] Univers 15:05:12 23:59:00 JULIANO andino [facility] 2019-09-30 2019-09-30 Emergency X Giovanna HOWELL [facility] E[facility] [id number] Univers 15:45:47 20:04:00 itrhonda [facility] 2019-08-11 2019-08-11 Outpatient VENANCIO PERALTA [facility] [id number] Univers 09:30:00 09:30:00 ity [facility] 2019-07-22 2019-07-22 Outpatient VENANCIO PERALTA [facility] [id number] Univers 09:30:00 09:30:00 [facility] Results Test Description Test Time Test Comments Results Result Comments Source TROPONIN I 2022-08-13 20:14:55 Test Item Value Reference Range Interpretation Comme nts TROPONIN I (test code = 3938458319) 0.003 ng/mL <=0.034 ANGELITA (test code = ANGELITA) Reference (Normal) Range (defined by the 99th percentile reference limit): <= 0.034 ng/mL Note: Cardiac troponin begins to rise 3-4 hours after the onset of ischemia. Repeat in 4-6 hours if the sample was drawn within 3-4 hours of the onset of the symptom and found normal. Diagnosis of myocardial injury is made with acute changes in cTn concentrations with at least one serial sample above the 99th percentile upper reference limit (URL), taken together with the patient's clinical presentation. Biotin has been reported to cause a negative bias, interpret results relative to patient's use of biotin. Lab Interpretation (test code = Normal 58054-2) [facility]-[id number] 19:04:04 Test Item Value Reference Interpretation Comments Range D-DIMER (test code = 0.55 See_Comment H [Autom ated 1057228156) message] The system which generated this result transmitted reference range : <0.41 ?g/mL (FEU). The reference range was not used to interpret this result as normal/abnormal . ANGELITA (test code = This test may be ANGELITA) used in conjunction with a clinical pretest probability (PTP) assessment model to exclude venous thromboembolism (VTE) in patients suspected of deep venous thrombosis (DVT) and pulmonary embolism (PE) A D-Dimer value less than 0.50 ?g/ml (FEU) has a negative predicative value of 96 to 100% (95% CI)and 97 to 100% (95% CI) as an aid in the diagnosis of deep vein thrombosis (DVT) and pulmonary embolism when there is low or moderate pretest probability of PE or DVT. D-Dimer values are expressed in initial fibrinogen equivalent units (FEU)" The assay results should be used with other information, including the clinical context, in forming a diagnosis. Lab Interpretation Abnormal (test code = 89345-1) [facility] SpringsFREE [id number] 18:43:38 Test Item Value Reference Range Interpretation Comments FREE T4 (test code = 0.80 See_Comment [Autom ated message] [id number]) The system [employer] generated this result transmitted ref erence range: 0.78 - 2 .20 ng/dL:. The ref erence range was not u sed to interpret this result as normal/abnor mal. Lab Interpretation (test Normal code = 51577-1) [facility] SpringsTROPONIN [id number] 18:38:36 Test Item Value Reference Range Interpretation Comments TROPONIN I (test code = 0.002 ng/mL <=0.034 0171240328) ANGELITA (test code = ANGELITA) Reference (Normal) Range (defined by the 99th percentile reference limit): <= 0.034 ng/mL Note: Cardiac troponin begins to rise 3-4 hours after the onset of ischemia. Repeat in 4-6 hours if the sample was drawn within 3-4 hours of the onset of the symptom and found normal. Diagnosis of myocardial injury is made with acute changes in cTn concentrations with at least one serial sample above the 99th percentile upper reference limit (URL), taken together with the patient's clinical presentation. Biotin has been reported to cause a negative bias, interpret results relative to patient's use of biotin. Lab Interpretation Normal (test code = 72409-3) [facility] SpringsN-TERMINAL [id number] 18:35:17 Test Item Value Reference Range Interpretation Comments NT-proBNP (test code = 473 pg/mL <=125 H 1748629995) ANGELITA (test code = ANGELITA) Biotin has been reported to cause a negative bias, interpret results relative to patient's use of biotin. Lab Interpretation (test Abnormal code = 24907-1) [facility] SpringsCOMP. METABOLIC PANEL (13994)2022-08-13 18:27:54 Test Item Value Reference Range Interpretation Comments NA (test code = 140 mmol/L 135-145 9354244397) K (test code = 4.3 mmol/L 3.5-5.0 2037486329) CL (test code = 102 mmol/L 98-108 4272513264) CO2 TOTAL (test code 29 mmol/L 23-31 = 3374640685) AGAP (test code = 9 2-16 1117531739) BUN (test code = 16 mg/dL 7-23 0615536885) GLUCOSE (test code = 107 mg/dL 70-110 0697133883) CREATININE (test code 0.71 mg/dL 0.50-1.04 = 7925030235) TOTAL BILI (test code 0.9 mg/dL 0.1-1.1 = 4892882352) CALCIUM (test code = 9.3 mg/dL 8.6-10.6 1961596831) T PROTEIN (test code 7.6 g/dL 6.3-8.2 = 2386939066) ALBUMIN (test code = 4.4 g/dL 3.5-5.0 5911179737) ALK PHOS (test code = 97 U/L 34-122 9141274161) ALTv (test code = 18 U/L 5-35 2-6) AST(SGOT) (test code 21 U/L 13-40 = 8433309880) eGFR (test code = 82.4 mL/min/1.73m2 8381066257) ANGELITA (test code = ANGELITA) Association of Glomerular Filtration Rate (GFR) and Staging of Kidney Disease* + + +- +| GFR (mL/min/1.73 m2) ?| With Kidney Damage ?| ?Without Kidney Damage+ ------+ ----+ ------+| ?>90 ?| ?Stage one ?| ? Normal ?+ -+ + -+| ?60-89 ?| ?Stage two ?| ? Decreased GFR ? + + +- +| ?30-59 ?| ?Stage three ?| ? Stage three ? + + +- +| ?15-29 ?| ?Stage four ? | ? Stage four ?+ -+ + -+| ?<15 (or dialysis) ? ?| ?Stage five ? | ? Stage five ?+ -+ + -+ *Each stage assumes the associated GFR level has been in effect for at least three months. ?Stages 1 to 5, with or without kidney disease, indicate chronic kidney disease. Notes: Determination of stages one and two (with eGFR >59mL/min/1.73 m2) requires estimation of kidney damage for at least three months as defined by structural or functional abnormalities of the kidney, manifested by either:Pathological abnormalities or Markers of kidney damage (including abnormalities in the composition of the blood or urine or abnormalities in imaging tests). [facility] SpringsLIPASE2023-04-11 18:27:13 Test Item Value Reference Range Interpretation Comments LIPASE (test code = 8892172142) 82 U/L 0-220 Lab Interpretation (test code = Normal 76988-7) [facility] SpringsACTIVATED PARTIAL THRMPLAS [id number] 18:21:09 Test Item Value Reference Range Interpretation Comments APTT Patient (test 31 See_Comment [Automat ed code = 3173-2) message] The system which generated this result transmitted reference range : 23 - 38 Seconds . The reference range was not used to interpr et this result as normal/abnormal . ANGELITA (test code = ANGELITA) The [facility] patient population mean normal value for aPTT is 30 seconds. Lab Interpretation Normal (test code = 87608-8) [facility] SpringsPROTHROMBIN TIME / [id number] 18:19:12 Test Item Value Reference Range Interpretation Comments PROTIME PATIENT (test 12.4 See_Comment [Auto mated message] code = 5964-2) The system wh ich generated this result transmitted ref erence range: 12.0 - 1 4.7 Seconds. The re ference range was not u sed to interpret this result as normal/abnor mal. INR (test code = 6301-6) 1.0 Nor mal INR <1.1; Warfarin Therap eutic range 2.0 to 3. 0 or 2.5 to 3.5, dep ending upon the indica tions. Lab Interpretation (test Normal code = 36606-6) [facility] SpringsCBC WITH [id number] 18:08:50 Test Item Value Reference Range Interpretation Comments WBC (test code = 10.33 See_Comment [Automated 8290-2) message] The sy stem which generated this result transmitted reference range : 4.30 - 11.10 10*3/?L. The reference range was not used to interpret this result as normal/abnormal . RBC (test code = 5.33 See_Comment H [Automated 219-8) message] The sy stem which generated this result transmitted reference range : 3.93 - 5.25 10*6/?L. The reference range was not used to interpret this result as normal/abnormal . HGB (test code = 14.7 g/dL 11.6-15.0 718-7) HCT (test code = 46.6 % 35.7-45.2 H 4544-3) MCV (test code = 87.4 fL 80.6-95.5 787-2) MCH (test code = 27.6 pg 25.9-32.8 785-6) MCHC (test code = 31.5 g/dL 31.6-35.1 L 786-4) RDW-SD (test code = 45.3 fL 39.0-49.9 24816-7) RDW-CV (test code = 14.1 % 12.0-15.5 788-0) PLT (test code = 277 See_Comment [Automated 777-3) message] The sy stem which generated this result transmitted reference range : 166 - 358 10*3/ ?L. The reference r isabel was not used to interpret this result as normal/abnormal . MPV (test code = 10.3 fL 9.5-12.9 48421-2) NRBC/100 WBC (test 0.0 See_Comment [Automat ed code = 9377997722) message] The system which generated this result transmitted reference range : 0.0 - 10.0 /100 WBCs. The refer ence range was not u sed to interpret th is result as normal/abnormal . NRBC x10^3 (test code See_Comment [Auto mated = 0538667051) message] The s ystem which generated this result transmitted reference range : 10*3/?L. The reference range was not used to interpret this result as normal/abnormal . GRAN MAT (NEUT) % 70.2 % (test code = 770-8) IMM GRAN % (test code 0.30 % = 1785464386) LYMPH % (test code = 19.6 % 736-9) MONO % (test code = 5.7 % 5905-5) EOS % (test code = 3.2 % 713-8) BASO % (test code = 1.0 % 706-2) GRAN MAT x10^3(ANC) 7.26 10*3/uL 1.88-7.09 H (test code = 8667258979) IMM GRAN x10^3 (test 0.03 10*3/uL 0.00-0.06 code = 2358954793) LYMPH x10^3 (test code 2.02 10*3/uL 1.32-3.29 = 731-0) MONO x10^3 (test code 0.59 10*3/uL 0.33-0.92 = 742-7) EOS x10^3 (test code = 0.33 10*3/uL 0.03-0.39 711-2) BASO x10^3 (test code 0.10 10*3/uL 0.01-0.07 H = 704-7) Lab Interpretation Abnormal (test code = 69673-1) [facility]. METABOLIC PANEL (50210)2022-08-02 20:08:00 Test Item Value Reference Range Interpretation Comments NA (test code = 141 mmol/L 135-145 [id number]) K (test code = 4.9 mmol/L 3.5-5.0 [id number]) CL (test code = 101 mmol/L 98-108 9732889841) CO2 TOTAL (test code = 30 mmol/L 23-31 6054864379) AGAP (test code = 10 2-16 [id number]) BUN (test code = 17 mg/dL 7-23 8899416523) GLUCOSE (test code = 130 mg/dL 70-110 H [id number]) CREATININE (test code = 0.76 mg/dL 0.50-1.04 3229352101) TOTAL BILI (test code = 0.8 mg/dL 0.1-1.3 9102452457) CALCIUM (test code = 9.3 mg/dL 8.6-10.6 1782583385) T PROTEIN (test code = 7.4 g/dL 6.3-8.2 6613610396) ALBUMIN (test code = 4.3 g/dL 3.5-5.0 1768456068) ALK PHOS (test code = 107 U/L 34-122 2140310446) ALTv (test code = 20 U/L 5-35 1742-6) AST(SGOT) (test code = 22 U/L 13-40 1130537757) eGFR (test code = 76.1 mL/min/1.73m2 5530405662) ANGELITA (test code = ANGELITA) Association of Glomerular Filtration Rate (GFR) and Staging of Kidney Disease* + --+ --+ ------+| GFR (mL/min/1.73 m2) ?| With Kidney Damage ?| ?Without Kidney Damage+ --------+ --------+ +| ?>90 ?| ?Stage one ?| ? Normal ?+ ---+ ---+ -------+| ?60-89 ?| ?Stage two ?| ? Decreased GFR ? + --+ --+ ------+| ?30-59 ?| ?Stage three ?| ? Stage three ? + --+ --+ ------+| ?15-29 ?| ?Stage four ? | ? Stage four ?+ ---+ ---+ -------+| ?<15 (or dialysis) ? ?| ?Stage five ? | ? Stage five ?+ ---+ ---+ -------+ *Each stage assumes the associated GFR level has been in effect for at least three months. ?Stages 1 to 5, with or without kidney disease, indicate chronic kidney disease. Notes: Determination of stages one and two (with eGFR >59mL/min/1.73 m2) requires estimation of kidney damage for at least three months as defined by structural or functional abnormalities of the kidney, manifested by either:Pathological abnormalities or Markers of kidney damage (including abnormalities in the composition of the blood or urine or abnormalities in imaging tests). Lab Interpretation Abnormal (test code = 91697-7) [facility] WITH [id number] 19:13:55 Test Item Value Reference Range Interpretation Comments WBC (test code = 12.48 See_Comment H [Automated 0245-2) message] The sy stem which generated this result transmitted reference range : 4.30 - 11.10 10*3/?L. The reference range was not used to interpret this result as normal/abnormal . RBC (test code = 5.30 See_Comment H [Automated 924-8) message] The sy stem which generated this result transmitted reference range : 3.93 - 5.25 10*6/?L. The reference range was not used to interpret this result as normal/abnormal . HGB (test code = 14.5 g/dL 11.6-15.0 718-7) HCT (test code = 46.1 % 35.7-45.2 H 4544-3) MCV (test code = 87.0 fL 80.6-95.5 787-2) MCH (test code = 27.4 pg 25.9-32.8 785-6) MCHC (test code = 31.5 g/dL 31.6-35.1 L 786-4) RDW-SD (test code = 46.0 fL 39.0-49.9 42090-0) RDW-CV (test code = 14.5 % 12.0-15.5 788-0) PLT (test code = 258 See_Comment [Automated 777-3) message] The sy stem which generated this result transmitted reference range : 166 - 358 10*3/ ?L. The reference r isabel was not used to interpret this result as normal/abnormal . MPV (test code = 10.5 fL 9.5-12.9 15049-5) NRBC/100 WBC (test 0.0 See_Comment [Automat ed code = [id number]) message] The system which generated this result transmitted reference range : 0.0 - 10.0 /100 WBCs. The refer ence range was not u sed to interpret th is result as normal/abnormal . NRBC x10^3 (test code See_Comment [Auto mated = [id number]) message] The s ystem which generated this result transmitted reference range : 10*3/?L. The reference range was not used to interpret this result as normal/abnormal . GRAN MAT (NEUT) % 73.9 % (test code = 770-8) IMM GRAN % (test code 0.20 % = 9061529719) LYMPH % (test code = 17.9 % 736-9) MONO % (test code = 5.0 % 5905-5) EOS % (test code = 2.1 % 713-8) BASO % (test code = 0.9 % 706-2) GRAN MAT x10^3(ANC) 9.22 10*3/uL 1.88-7.09 H (test code = 8794958521) IMM GRAN x10^3 (test 0.03 10*3/uL 0.00-0.06 code = 8121054611) LYMPH x10^3 (test code 2.23 10*3/uL 1.32-3.29 = 731-0) MONO x10^3 (test code 0.63 10*3/uL 0.33-0.92 = 742-7) EOS x10^3 (test code = 0.26 10*3/uL 0.03-0.39 711-2) BASO x10^3 (test code 0.11 10*3/uL 0.01-0.07 H = 704-7) Lab Interpretation Abnormal (test code = 70956-0) [facility]
--- NOTE | 2022-08-27 16:47 | RAD REPORT ---
EXAM DESCRIPTION: CT - Abdomen Pelvis Wo Contrast - 08/27/2022 4:38 pm CLINICAL HISTORY: Abdominal pain. fall COMPARISON: CT ABD PELVIS W CONTRAST dated 07/09/2012 TECHNIQUE: CT imaging of the abdomen and pelvis was performed without contrast. Solid organ, bowel a nd vascular assessment is limited due to lack of IV and oral contrast. All CT scans are performed using dose optimization technique as appropriate and may include automated exposure control or mA/KV adjustment according to patient size. FINDINGS: The lower lung samuel are clear.Cholecystectomy clips. The liver, spleen, pancreas, adrenal glands and kidneys are within normal limits for a limited non-co ntrast examination.Multiple benign renal cysts. No hydronephrosis. No bowel obstruction, free air, free fluid or abscess. Nonvisualized appendix. The osseous structures are within normal limits. IMPRESSION: No acute intra-abdominal or pelvic findings. A limited non-contrast examination was performed as detailed.
--- NOTE | 2022-08-27 16:48 | RAD REPORT ---
EXAM DESCRIPTION: RAD - Femur Right - 08/27/2022 4:34 pm CLINICAL HISTORY: fall;Pain COMPARISON: No comparisons FINDINGS: No fracture or dislocation seen.
--- NOTE | 2022-08-27 16:49 | RAD REPORT ---
EXAM DESCRIPTION: RAD - Tib Fib Right - 08/27/2022 4:33 pm CLINICAL HISTORY: fall;Pain COMPARISON: No comparisons FINDINGS: Mild soft tissue swelling about the ankle. No fracture seen. Small calcaneal spurs.
--- NOTE | 2022-08-27 16:52 | RAD REPORT ---
EXAM DESCRIPTION: RAD - Foot Right 3 View - 08/27/2022 4:33 pm CLINICAL HISTORY: fall;Pain COMPARISON: No comparisons FINDINGS: No acute fracture or dislocation seen. Small calcaneal spurs.
--- NOTE | 2022-08-27 18:53 | EDPHYS ---
Physician Documentation [facility] Name: Angy Aguilera Age: 67 yrs Sex: Female : 1955 Arrival Date: 08/27/2022 Time: 15:12 Bed DIS2 Private MD: ED Physician Suman Red HPI: 08/27 16:00 This 67 yrs old Female presents to ER via EMS with complaints of Fall Injury, Knee cp Injury. 16:00 Details of fall: The patient fell from an upright position, while walking, and struck a cp concrete surface. Onset: The symptoms/episode began/occurred today. Associated injuries: The patient sustained injury to the low back, pain, pain with movement, right lower back and right flank, right hip and right leg, painful injury. Patient reports slip and fall at local [employer] [place]. Patient reports there was spilled dish washing liquid on floor that caused her to lose her balance and fall onto right leg. Historical: - Allergies: 15:45 Morphine; ap3 15:45 Sulfa (Sulfonamide Antibiotics); ap3 15:45 Codeine; ap3 - PMHx: 15:45 chronic neck pain; GERD; High Cholesterol; Hypertension; Myocardial infarction; Ulcers; ap3 - Immunization history:: Client reports receiving the 2nd dose of the Covid vaccine. - Social history:: Smoking status: Patient denies any tobacco usage or history of. ROS: 16:05 Constitutional: Negative for body aches, chills, fever, poor PO intake. cp 16:05 Eyes: Negative for injury, pain, redness, and discharge. cp 16:05 Cardiovascular: Negative for chest pain. 16:05 Respiratory: Negative for cough, shortness of breath, wheezing. 16:05 Abdomen/GI: Negative for abdominal pain, nausea, vomiting, and diarrhea. 16:05 Back: Positive for pain at rest, pain with movement, of the right low back area, Negative for decreased range of motion. 16:05 MS/extremity: Positive for pain, of the right foot and right leg and right hip, Negative for decreased range of motion, deformity, paresthesias. 16:05 Neuro: Negative for altered mental status, dizziness, headache, numbness, weakness. 16:05 All other systems are negative. Exam: 16:10 Constitutional: The patient appears in no acute distress, alert, awake, cp non-diaphoretic, non-toxic, well developed, well nourished, overweight 16:10 Head/Face: Normocephalic, atraumatic. cp 16:10 Chest/axilla: Inspection: normal, Palpation: is normal, no crepitus, no tenderness. 16:10 Cardiovascular: Rate: normal. 16:10 Respiratory: the patient does not display signs of respiratory distress, Respirations: normal, no use of accessory muscles, no retractions, labored breathing, is not present, Breath sounds: are clear throughout, no decreased breath sounds, no stridor, no wheezing. 16:10 Abdomen/GI: Inspection: abdomen appears normal, Palpation: abdomen is soft and non-tender, in all quadrants. 16:10 Back: pain, that is moderate, of the right mid back and right low back, vertebral tenderness, is not appreciated. 16:10 Musculoskeletal/extremity: Extremities: grossly normal except: noted in the right hip and right leg and right foot: pain, tenderness, There is no evidence of decreased ROM, deformity, ROM: limited passive range of motion due to pain, in the right hip and right knee and right ankle and right foot, Pulses: noted to be 2+ in the right dorsalis pedis artery, the right foot and right leg Sensation intact. 16:10 Neuro: Orientation: to person, place \T\ time. Mentation: is normal, Motor: moves all fours, strength is normal, Sensation: no obvious gross deficits. Vital Signs: 15:43 BP 147 / 66; Pulse 64; Resp 17; Temp 98.1; Pulse Ox 94% ; Weight 99.79 kg; Pain 5/10; ap3 15:43 Pain Scale: Adult ap3 MDM: 16:07 Patient medically screened. cp 18:00 Differential diagnosis: closed head injury, contusion, fracture, multiple trauma. cp 18:51 Data reviewed: vital signs, nurses notes, radiologic studies, CT scan, plain films. cp 18:51 Counseling: I had a detailed discussion with the patient and/or guardian regarding: the cp historical points, exam findings, and any diagnostic results supporting the discharge/admit diagnosis, radiology results, the need for outpatient follow up, a family practitioner, to return to the emergency department if symptoms worsen or persist or if there are any questions or concerns that arise at home. Response to treatment: the patient's symptoms have mildly improved after treatment, and as a result, I will discharge patient. ED course: VSS. Radiology studies reviewed and negative for acute fracture. Will discharge to home for continued monitoring. 08/27 15:49 Order name: XRAY Foot RIGHT 3 View; Complete Time: 19:03 cp 08/27 19:03 Interpretation: Report reviewed. cp 08/27 15:49 Order name: XRAY Tib Fib RIGHT; Complete Time: 19:03 cp 08/27 19:03 Interpretation: Report reviewed. cp 08/27 15:49 Order name: XRAY Femur RIGHT; Complete Time: 19:03 cp 08/27 19:03 Interpretation: Report reviewed. cp 08/27 15:49 Order name: CT Abd/Pelvis - Without Contrast; Complete Time: 19:03 cp 08/27 19:04 Interpretation: Report reviewed. cp 08/27 18:42 Order name: Donovan wrap-joint: right knee and right ankle; Complete Time: 19:15 cp 08/27 18:42 Order name: Crutches; Complete Time: 19:15 cp Administered Medications: 18:55 Drug: Ibuprofen PO 800 mg Route: PO; aa5 19:15 Follow up: Response: No adverse reaction aa5 18:55 Drug: Hydrocodone-Acetaminophen PO (7.5 mg-325 mg) 1 tabs Route: PO; aa5 19:15 Follow up: Response: No adverse reaction aa5 Disposition Summary: 08/27/22 18:52 Discharge Ordered Location: Home cp Problem: new cp Symptoms: have improved cp Condition: Stable cp Diagnosis - Fall on same level, unspecified cp - Low back pain cp - Pain in right hip cp - Pain in right knee cp - Pain in right ankle and joints of right foot cp Followup: cp - With: Private Physician - When: 2 - 3 days - Reason: Recheck today's complaints Discharge Instructions: - Discharge Summary Sheet cp - Acute Back Pain, Adult cp - How to Use a Knee Brace cp - Acute Knee Pain, Adult cp - Hip Pain cp - Ankle Pain cp - Back Exercises cp - Foot Pain cp Forms: - Medication Reconciliation Form cp - Thank You Letter cp - Antibiotic Education cp - Prescription Opioid Use cp Prescriptions: - Ibuprofen 800 mg Oral Tablet - take 1 tablet by ORAL route every 8 hours As needed take with food; 30 tablet; cp Refills: 0, Product Selection Permitted - Cyclobenzaprine 10 mg Oral Tablet - take 1 tablet by ORAL route every 8 hours As needed; 20 tablet; Refills: 0, cp Product Selection Permitted Addendum: 08/29/2022 18:58 Co-signature as Attending Physician, Suman Red DO I was immediately available on-site m s3 in the Emergency Department for consultation in the care of the patient. Signatures: Dispatcher [employer] Marilu Gonzalez, RN RN aa5 Jaun Rodriguez PA PA cp Prokisch, Amanda, RN RN ap3 Suman Red DO DO ms3
--- NOTE | 2022-08-27 18:53 | ER ---
Nurse's Notes [facility] Name: Angy Aguilera Age: 67 yrs Sex: Female : 1955 Arrival Date: 08/27/2022 Time: 15:12 Bed DIS2 Private MD: Diagnosis: Fall on same level, unspecified;Low back pain;Pain in right hip;Pain in right knee;Pain in right ankle and joints of right foot Presentation: 08/27 15:43 Chief complaint: Patient states: she fell at [employer] in [place] that was on the ap3 floor. patient reports right knee pain, that goes from her right foot up to her lower back. Coronavirus screen: At this time, the client does not indicate any symptoms associated with coronavirus-19. Ebola Screen: No symptoms or risks identified at this time. Initial Sepsis Screen: Does the patient meet any 2 criteria? No. Patient's initial sepsis screen is negative. Does the patient have a suspected source of infection? No. Patient's initial sepsis screen is negative. Risk Assessment: Do you want to hurt yourself or someone else? Patient reports no desire to harm self or others. Onset of symptoms was August 27, 2022. 15:43 Method Of Arrival: EMS: [facility] ap3 15:43 Acuity: PATTI 4 ap3 Triage Assessment: 15:46 General: Appears uncomfortable, Behavior is calm, cooperative, appropriate for age. ap3 Pain: Complains of pain in right leg Pain radiates to low back area Pain currently is 5 out of 10 on a pain scale. Pain began suddenly. Neuro: Level of Consciousness is awake, alert, obeys commands, Oriented to person, place, time, situation. Cardiovascular: Patient's skin is warm and dry. Respiratory: Airway is patent Respiratory effort is even, unlabored, Respiratory pattern is regular, symmetrical. Historical: - Allergies: 15:45 Morphine; ap3 15:45 Sulfa (Sulfonamide Antibiotics); ap3 15:45 Codeine; ap3 - PMHx: 15:45 chronic neck pain; GERD; High Cholesterol; Hypertension; Myocardial infarction; Ulcers; ap3 - Immunization history:: Client reports receiving the 2nd dose of the Covid vaccine. - Social history:: Smoking status: Patient denies any tobacco usage or history of. Screenin:46 Abuse screen: Denies threats or abuse. Nutritional screening: No deficits noted. ap3 Tuberculosis screening: No symptoms or risk factors identified. Assessment: 18:55 Reassessment: Patient is alert, oriented x 3, equal unlabored respirations, skin aa5 warm/dry/pink. 19:16 Reassessment: Patient is alert, oriented x 3, equal unlabored respirations, skin aa5 warm/dry/pink. Donovan bandage applied to right knee and right ankle. . Vital Signs: 15:43 BP 147 / 66; Pulse 64; Resp 17; Temp 98.1; Pulse Ox 94% ; Weight 99.79 kg; Pain 5/10; ap3 15:43 Pain Scale: Adult ap3 ED Course: 15:23 Patient arrived in ED. mr 15:29 Jaun Rodriguez PA is PHCP. cp 15:29 Suman Red DO is Attending Physician. cp 15:45 Triage completed. ap3 15:46 Arm band placed on right wrist. ap3 16:34 XRAY Foot RIGHT 3 View In Process Unspecified. EDMS 16:34 XRAY Tib Fib RIGHT In Process Unspecified. EDMS 16:34 XRAY Femur RIGHT In Process Unspecified. EDMS 16:40 CT Abd/Pelvis - Without Contrast In Process Unspecified. EDMS 19:16 No provider procedures requiring assistance completed. Patient did not have IV access aa5 during this emergency room visit. Administered Medications: 18:55 Drug: Ibuprofen PO 800 mg Route: PO; aa5 19:15 Follow up: Response: No adverse reaction aa5 18:55 Drug: Hydrocodone-Acetaminophen PO (7.5 mg-325 mg) 1 tabs Route: PO; aa5 19:15 Follow up: Response: No adverse reaction aa5 Medication: 19:16 VIS not applicable for this client. aa5 Outcome: 18:52 Discharge ordered by MD. cp 19:16 Discharged to home via wheelchair, with crutches, with significant other. aa5 19:16 Condition: stable 19:16 Discharge instructions given to patient, Instructed on discharge instructions, follow up and referral plans. crutch walking, Demonstrated understanding of instructions, follow-up care, medications, crutch walking, Prescriptions given X 2. 19:17 Patient left the ED. aa5 Signatures: Dispatcher [employer] EDMS Claudia Jaffe, Marilu, RN RN aa5 Jaun Rodriguez PA PA cp Prokisch, Amanda RN RN ap3
[2022-08-27] MEDS ORDERED: IBUPROFEN 400 MG TAB ONE (18:59)
[2022-08-27] MEDS ORDERED: HYDROCODONE/APAP 7.5/325 MG TAB ONE (18:59)
[2022-08-27 20:41] VITALS: BP 147/66; TEMP 98.1; O2SAT 94
== END 2022-08-27 19:17 | disposition home or self-care (01) ==
LOC: ER 15:12
DX: M54.50 Low back pain, unspecified (principal); M25.551 Pain in right hip; M25.561 Pain in right knee; M25.571 Pain in right ankle and joints of right foot; W18.30XA Fall on same level, unspecified, initial encounter; I10 Essential (primary) hypertension; Z88.2 Allergy status to sulfonamides; Z88.5 Allergy status to narcotic agent
CPT/HCPCS: 74176; 99284